=== PATIENT | male | born 1970 | race American Indian/Alaskan Native ===

== ENCOUNTER 2017-03-15 09:21 | Emergency (ER) | payer SELFPAY ==
[2017-03-15] MEDS ORDERED: NACL 0.9% 1000 ML 1,000 ML IV ONE (16:46)
[2017-03-15] MEDS ORDERED: TORADOL IV ONE (16:46)
[2017-03-15] MEDS ORDERED: REGLAN IV ONE (16:46)
[2017-03-15] MEDS ORDERED: BENADRYL IV ONE (16:46)
[2017-03-15] MEDS ORDERED: ZITHROMAX PO ONE (16:48)
[2017-03-15] MEDS ORDERED: ZITHROMAX 500 MG in NACL 0.9% 250ML 250 ML IV ONE (17:16)
--- NOTE | 2017-03-15 17:47 | Emergency Department Report ---
HPI - General Chief Complaint: Headache Time Seen by Provider: 03/15/17 16:23 - HPI HPI: The patient is a 46-year-old male who presents for evaluation of headache and nasal drainage. The patient reports 5 days of right frontal headache and mid face pain, constant and progressive since onset, 10/10 in severity for the past one day, pressure-like in quality, and associated with copious nasal drainage, clear and yellow. The patient denies fever, head injury, neck pain or neck stiffness, cough, dyspnea, chest pain, vision or hearing changes, smell or taste lost, paresthesias, facial drooping, slurred speech, or other focal neurological deficit. ED Past Medical Hx - Past Medical History Previous Medical History?: Yes Hx of Cancer: Yes (throat cancer) Hx Psychiatric Treatment: Yes (depression,alcoholic) Additional medical history: CHILDHOOD CANCER / alcohol abuse - Surgical History Past Surgical History?: Yes Additional Surgical History: TUMOR REMOVED FROM HEAD AND NECK, BIOPSY, ESOPHAGUS SURGERY - Social History Smoking Status: Former Smoker Substance Use Type: Alcohol, Prescribed - Medications Home Medications: Home Medications Medication Instructions Recorded Confirmed Last Taken Type Amoxicillin/K Clav Tab [Augmentin 1 tab PO Q12HR #20 tab 11/25/15 11/26/15 Unknown Rx 875 mg] HYDROcodone/APAP 7.5-325 [[place]] 15 ml PO Q4HR PRN #120 oz 11/25/15 11/26/15 Unknown Rx Amoxicillin [Amoxicillin 250 MG/5 250 mg PO BID #200 ml 03/15/17 Unknown Rx Ml] Ibuprofen Oral Liqd [Motrin] 600 mg PO Q6HR PRN #1 bottle 03/15/17 Unknown Rx Phenylephrine/Dm/Acetaminop/GG 20 ml PO Q4HR PRN #180 liquid 03/15/17 Unknown Rx [Mucinex Itpj-Vdx-Unevdsdrrg Lq] ED Review of Systems ROS: Stated complaint: SINUS PROBLEM,FEVER Other details as noted in HPI Constitutional: denies: fever ENT: denies: throat or neck pain Respiratory: denies: cough, shortness of breath Cardiovascular: denies: chest pain Endocrine: denies unexplained weight loss or gain Gastrointestinal: denies: abdominal pain, nausea Genitourinary: denies: dysuria Musculoskeletal: denies: leg swelling Skin: denies: rash Neurological: reports headache Hematological/Lymphatic: denies: easy bleeding or easy bruising Psych: denies sadness or hopelessness Physical Exam - Physical Exam Vital Signs: Vital Signs 03/15/17 03/15/17 03/15/17 11:01 16:22 16:26 Temperature 97.6 F 98.2 F Pulse Rate 82 99 H Respiratory 18 18 18 Rate Blood Pressure 97/66 Blood Pressure 101/72 [Right] O2 Sat by Pulse 100 97 100 Oximetry 03/15/17 17:08 Temperature Pulse Rate Respiratory 18 Rate Blood Pressure Blood Pressure [Right] O2 Sat by Pulse Oximetry Physical Exam: General: well-nourished, well-developed, no acute distress Head: Normocephalic, atraumatic, right frontal and maxillary tenderness to percussion present Eyes: normal sclera ENT: Mucous membranes are pale, bilateral nasal congestion is present, clear and white non-purulent mucous present to the right nare Neck: trachea midline, neck supple, No neck stiffness, no cervical adenopathy Respiratory: Breath sounds equal bilaterally, no wheezing, rales, or rhonchi Cardio: S1 and S2 present, no murmurs, rubs, gallops, capillary refill is delayed Abdomen: Normoactive bowel sounds, soft abdomen, no rigidity, no guarding or rebound tenderness Musc: No pitting edema Skin: No rash Neuro: alert oriented x4, normal cognition, speech normal, PERRL, EOM intact, no facial drooping, no uvula or tongue deviation on protrusion, no deficit with rotation of neck or shoulder shrug, no obvious gross motor deficit in the upper or lower extremities with flexion or extension at the shoulder, elbow, wrist, hip, knee, or ankle bilaterally, no obvious gross sensation deficit to crude touch or 2 pt discrimination, 2+ symmetric reflexes on DTR testing, no coordination deficit with lgrwpq-jl-vfek or luzw-tk-uzux testing, romberg negative, patient able to to ambulate without abnormal gait Psych: Normal affect ED Course Vital Signs 03/15/17 03/15/17 03/15/17 11:01 16:22 16:26 Temperature 97.6 F 98.2 F Pulse Rate 82 99 H Respiratory 18 18 18 Rate Blood Pressure 97/66 Blood Pressure 101/72 [Right] O2 Sat by Pulse 100 97 100 Oximetry 03/15/17 17:08 Temperature Pulse Rate Respiratory 18 Rate Blood Pressure Blood Pressure [Right] O2 Sat by Pulse Oximetry ED Medical Decision Making - Medical Decision Making The patient was seen and examined by myself. The patient is placed on a cardiac rehabilitation specialist and continuous pulse ox. On initial evaluation, the patient was found to be in no distress. As there are no neuro deficits or other findings on examination concerning for acute intracranial disease process, and as the patient states that symptoms are consistent with previous headaches, a CAT scan of the head will not be obtained at this time. IV access is established and the patient is given 1 L normal saline fluid bolus for treatment of dehydration, IV Reglan, Benadryl, and IV Toradol for headache and sinus pain. The patient be given a prescription for amoxicillin for treatment of his sinusitis. The patient was reevaluated and reported that their symptoms were markedly improved. The patient is stable for discharge with outpatient follow-up. The patient is given follow-up and return instructions. The patient expressed understanding and agreed with the plan. The patient is discharged in stable condition. Critical care attestation.: If time is entered above; I have spent that time in minutes in the direct care of this critically ill patient, excluding procedure time. ED Disposition Clinical Impression: Acute non intractable tension-type headache, Dehydration, mild Acute frontal sinusitis Qualifiers: Recurrence: non-recurrent Qualified Code(s): J01.10 - Acute frontal sinusitis, unspecified Acute maxillary sinusitis Qualifiers: Recurrence: non-recurrent Qualified Code(s): J01.00 - Acute maxillary sinusitis , unspecified Disposition: DC-01 TO HOME OR SELFCARE Is pt being admited?: No Does the pt Need Aspirin: No Condition: Stable Instructions: Acute Headache (ED), Sinusitis (ED) Prescriptions: Amoxicillin [Amoxicillin 250 MG/5 Ml] 250 mg PO BID #200 ml Ibuprofen Oral Liqd [Motrin] 600 mg PO Q6HR PRN #1 bottle PRN Reason: Pain Phenylephrine/Dm/Acetaminop/GG [Mucinex Wbqb-Pwi-Msvernyonb Lq] 20 ml PO Q4HR PRN #180 liquid PRN Reason: cough and sore throat Referrals: PRIMARY CARE,MD [Primary Care Provider] - 3-5 Days Time of Disposition: 18:10
[2017-03-15 19:59] VITALS: BP 105/70
== END 2017-03-15 20:01 | disposition home or self-care (01) ==
LOC: ED 09:21
DX: J01.10 Acute frontal sinusitis, unspecified (principal); J01.00 Acute maxillary sinusitis, unspecified; G44.209 Tension-type headache, unspecified, not intractable; E86.0 Dehydration; C14.0 Malignant neoplasm of pharynx, unspecified; F32.9 Major depressive disorder, single episode, unspecified; Z87.891 Personal history of nicotine dependence
CPT/HCPCS: 96361; 96365; 96375; 99283; J0456; J1200; J1885; J2765; J7030; J7050

== ENCOUNTER 2017-05-11 20:04 | Emergency (ER) | payer OTHER ==
[2017-05-11 20:26] VITALS: BP 125/81
[2017-05-11 20:54] LABS: Basophils % (Auto) 0.9 % (0.0-1.8); Eosinophils % (Auto) 9.1 % (0.0-4.3); Hematocrit 30.7 % (35.5-45.6); Hemoglobin 10.2 gm/dl (11.8-15.2); Mean Corpuscular HGB Conc 33 % (32-34); Mean Corpuscular Hemoglobin 28 pg (28-32); Mean Corpuscular Volume 84 fl (84-94); Platelet Count 288 K/mm3 (140-440); Red Blood Count 3.64 M/mm3 (3.65-5.03); White Blood Count 5.3 K/mm3 (4.5-11.0)
[2017-05-11 21:01] LABS: Alanine Aminotransferase 15 units/L (7-56); Albumin 4.4 g/dL (3.9-5); Albumin/Globulin Ratio 1.6 %; Alkaline Phosphatase 78 units/L (35-129); BUN/Creatinine Ratio 14; Bilirubin,Total < 0.20 mg/dL (0.1-1.2); Blood Urea Nitrogen 13 mg/dL (9-20); Calcium 9.2 mg/dL (8.4-10.2); Carbon Dioxide 27 mmol/L (22-30); Glucose 81 mg/dL (75-100); Lipase 32 units/L (13-60); Total Protein 7.2 g/dL (6.3-8.2)
[2017-05-11 21:02] LABS: Anion Gap 18 mmol/L; Chloride 89.6 mmol/L (98-107); Potassium 4.1 mmol/L (3.6-5.0); Sodium 130 mmol/L (137-145)
== END 2017-05-12 00:37 | disposition left against medical advice (07) ==
LOC: ED 20:04
DX: R10.9 Unspecified abdominal pain (principal); Z53.21 Procedure and treatment not carried out due to patient leaving prior to being seen by health care provider
CPT/HCPCS: 36415; 80053; 83690; 85025

== ENCOUNTER 2017-06-10 13:05 | Emergency (ER) | payer MEDICAID ==
[2017-06-10] MEDS ORDERED: HALDOL IM PRN (13:56)
[2017-06-10] MEDS ORDERED: ATIVAN IM PRN (13:56)
--- NOTE | 2017-06-10 13:57 | Emergency Department Report ---
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 He reports being off of his psychiatric medication for 2 weeks. Symptoms are constant. They do not radiate anywhere. It did not have exacerbating or relieving factors. Denies headache, shortness of breath, abdominal pain, homicidality, overdose, urinary symptoms. -: Gradual, week(s) Consistency: constant Improves with: none Worsens with: none Associated Symptoms: denies: confusion, chest pain, cough, diaphoresis, fever/ chills, headaches, loss of appetite, malaise, nausea/vomiting, seizure, shortness of breath, syncope, weakness - Related Data Previous Rx's Medication Instructions Recorded Last Taken Type Amoxicillin/K Clav Tab [Augmentin 1 tab PO Q12HR #20 tab 11/25/15 Unknown Rx 875 mg] HYDROcodone/APAP 7.5-325 [[place]] 15 ml PO Q4HR PRN #120 oz 11/25/15 Unknown Rx Amoxicillin [Amoxicillin 250 MG/5 250 mg PO BID #200 ml 03/15/17 Unknown Rx Ml] Ibuprofen Oral Liqd [Motrin] 600 mg PO Q6HR PRN #1 bottle 03/15/17 Unknown Rx Phenylephrine/Dm/Acetaminop/GG 20 ml PO Q4HR PRN #180 liquid 03/15/17 Unknown Rx [Mucinex Gtfb-Kto-Tzgesgkgnb Lq] Allergies Allergy/AdvReac Type Severity Reaction Status Date / Time No Known Allergies Allergy Verified 03/15/17 19:58 ED Review of Systems ROS: Stated complaint: MH Other details as noted in HPI Constitutional: denies: fever Eyes: denies: vision change ENT: denies: epistaxis Respiratory: denies: cough Cardiovascular: denies: chest pain Gastrointestinal: denies: abdominal pain Genitourinary: denies: dysuria Musculoskeletal: denies: back pain Neurological: weakness Psychiatric: anxiety, depression, suicidal thoughts. denies: homicidal thoughts ED Past Medical Hx - Past Medical History Hx Psychiatric Treatment: Yes (depression,alcoholic) Additional medical history: CHILDHOOD CANCER in neck / alcohol abuse/GT placed in August 2016 due to the cancer - Surgical History Additional Surgical History: TUMOR REMOVED FROM HEAD AND NECK, BIOPSY, ESOPHAGUS SURGERY, decreased hearing - Social History Smoking Status: Current Every Day Smoker Substance Use Type: None - Medications Home Medications: Home Medications Medication Instructions Recorded Confirmed Last Taken Type Amoxicillin/K Clav Tab [Augmentin 1 tab PO Q12HR #20 tab 11/25/15 03/15/17 Unknown Rx 875 mg] HYDROcodone/APAP 7.5-325 [[place]] 15 ml PO Q4HR PRN #120 oz 11/25/15 03/15/17 Unknown Rx Amoxicillin [Amoxicillin 250 MG/5 250 mg PO BID #200 ml 03/15/17 Unknown Rx Ml] Ibuprofen Oral Liqd [Motrin] 600 mg PO Q6HR PRN #1 bottle 03/15/17 Unknown Rx Phenylephrine/Dm/Acetaminop/GG 20 ml PO Q4HR PRN #180 liquid 03/15/17 Unknown Rx [Mucinex Tnnd-Zfj-Wwjwqzyjzm Lq] ED Physical Exam - General Limitations: No Limitations General appearance: alert, anxious, in distress - Head Head exam: Present: atraumatic, normocephalic - Eye Eye exam: Present: normal appearance, PERRL, EOMI, other (visual acuity intact to finger counting, color perception, reading at a close distance). Absent: nystagmus - ENT ENT exam: Present: normal exam, normal orophraynx, mucous membranes moist, normal external ear exam - Neck Neck exam: Present: full ROM. Absent: tenderness, meningismus - Respiratory Respiratory exam: Present: normal lung sounds bilaterally. Absent: respiratory distress, chest wall tenderness - Cardiovascular Cardiovascular Exam: Present: regular rate, normal rhythm, normal heart sounds. Absent: systolic murmur, diastolic murmur, rubs, gallop - GI/Abdominal GI/Abdominal exam: Present: soft, normal bowel sounds. Absent: distended, tenderness, guarding, rebound, rigid, pulsatile mass - Rectal Rectal exam: Present: deferred - Extremities Exam Extremities exam: Present: normal inspection, full ROM. Absent: pedal edema, joint swelling, calf tenderness - Back Exam Back exam: Present: normal inspection, full ROM. Absent: tenderness, CVA tenderness (R), paraspinal tenderness, vertebral tenderness - Neurological Exam Neurological exam: Present: alert, oriented X3, CN II-XII intact, normal gait, other (Extraocular movements intact. Tongue midline. No facial droop. Facial sensation intact to light touch in the V1, V2, V3 distribution bilaterally. 5 and 5 strength in 4 extremities.. Sensation is intact to light touch in 4 extremities.). Absent: motor sensory deficit - Psychiatric Psychiatric exam: Present: depressed, agitated, anxious, suicidal ideation. Absent: homicidal ideation - Skin Skin exam: Present: warm, dry, intact, normal color. Absent: rash ED Course Vital Signs 06/10/17 13:28 Temperature 98.2 F Pulse Rate 102 H Respiratory 18 Rate Blood Pressure 110/80 O2 Sat by Pulse 98 Oximetry - Reevaluation(s) Reevaluation #1: 06/10/17 14:38 Differential diagnosis, including without limited to: Depression, medical clearance for psychiatric placement Assessment and plan: 46-year-old male with depression, suicidality, generalized sense of hopelessness. He is afebrile with reassuring vital signs, clinically sober, walks with a steady gait, requires a 1013 at this time. nih score of 0, GCS of 15. Laboratory studies pending, we will discuss with psychiatry once his laboratory studies have resulted. Reevaluation #2: 06/10/17 15:16 Laboratory studies reviewed and are unremarkable. He does not appear to be any immediate medical contraindication to psychiatric admission, evaluation and consultation at this time. Crisis team notified. ED Medical Decision Making - Lab Data Result diagrams: 06/10/17 14:31 06/10/17 14:31 Vital Signs 06/10/17 13:28 Temperature 98.2 F Pulse Rate 102 H Respiratory 18 Rate Blood Pressure 110/80 O2 Sat by Pulse 98 Oximetry Lab Results 06/10/17 Range/Units 13:07 Urine Bilirubin Neg (Negative) Urine RBC (Auto) 1.0 (0.0-6.0) /HPF - Radiology Data Vital Signs 06/10/17 13:28 Temperature 98.2 F Pulse Rate 102 H Respiratory 18 Rate Blood Pressure 110/80 O2 Sat by Pulse 98 Oximetry Lab Results 06/10/17 06/10/1717 Range/Units 13:07 13:07 14:31 WBC 4.2 L (4.5-11.0) K/mm3 RBC 4.33 (3.65-5.03) M/mm3 Hgb 12.1 (11.8-15.2) gm/dl Hct 36.5 (35.5-45.6) % MCV 84 (84-94) fl MCH 28 (28-32) pg MCHC 33 (32-34) % RDW 14.0 (13.2-15.2) % Plt Count 316 (140-440) K/mm3 Lymph % (Auto) Not Reportable Dane % (Auto) Not Reportable Eos % (Auto) Not Reportable Baso % (Auto) Not Reportable Lymph # Not Reportable Dane # Not Reportable Eos # Not Reportable Baso # Not Reportable Seg Neutrophils # Not Reportable Sodium (137-145) mmol/L Potassium (3.6-5.0) mmol/L Chloride (98-107) mmol/L Carbon Dioxide (22-30) mmol/L Anion Gap mmol/L BUN (9-20) mg/dL Creatinine (0.8-1.5) mg/dL Estimated GFR ml/min BUN/Creatinine Ratio % Glucose (75-100) mg/dL Calcium (8.4-10.2) mg/dL Total Bilirubin (0.1-1.2) mg/dL AST (5-40) units/L ALT (7-56) units/L Alkaline Phosphatase (35-129) units/L Total Creatine Kinase (55-170) units/L Total Protein (6.3-8.2) g/dL Albumin (3.9-5) g/dL Albumin/Globulin Ratio % Urine Color Yellow (Yellow) Urine Turbidity Clear (Clear) Urine pH 6.0 (5.0-7.0) Ur Specific [place] 1.021 (1.003-1.030) Urine Protein <15 mg/dl (Negative) mg/dL Urine Glucose (UA) Neg (Negative) mg/dL Urine Ketones Neg (Negative) mg/dL Urine Blood Neg (Negative) Urine Nitrite Neg (Negative) Urine Bilirubin Neg (Negative) Urine Urobilinogen < 2.0 (<2.0) mg/dL Ur Leukocyte Esterase Neg (Negative) Urine WBC (Auto) 1.0 (0.0-6.0) /HPF Urine RBC (Auto) 1.0 (0.0-6.0) /HPF Hyaline Casts 1 /LPF Urine Mucus Few /HPF Salicylates (2.8-20.0) mg/dL Urine Opiates Screen Presumptive negative Urine Methadone Screen Presumptive negative Acetaminophen (10.0-30.0) ug/mL Ur Barbiturates Screen Presumptive negative Ur Phencyclidine Scrn Presumptive negative Ur Amphetamines Screen Presumptive negative U Benzodiazepines Scrn Presumptive negative Urine Cocaine Screen Presumptive negative U Marijuana (THC) Screen Presumptive positive Drugs of Abuse Note Disclamer Plasma/Serum Alcohol (0-0.07) gm% 06/10/17 06/10/17 06/10/17 Range/Units 14:31 14:31 14:31 WBC (4.5-11.0) K/mm3 RBC (3.65-5.03) M/mm3 Hgb (11.8-15.2) gm/dl Hct (35.5-45.6) % MCV (84-94) fl MCH (28-32) pg MCHC (32-34) % RDW (13.2-15.2) % Plt Count (140-440) K/mm3 Lymph % (Auto) Dane % (Auto) Eos % (Auto) Baso % (Auto) Lymph # Dane # Eos # Baso # Seg Neutrophils # Sodium 133 L (137-145) mmol/L Potassium 4.5 (3.6-5.0) mmol/L Chloride 94.4 L (98-107) mmol/L Carbon Dioxide 26 (22-30) mmol/L Anion Gap 17 mmol/L BUN 17 (9-20) mg/dL Creatinine 0.9 (0.8-1.5) mg/dL Estimated GFR > 60 ml/min BUN/Creatinine Ratio 19 % Glucose 94 (75-100) mg/dL Calcium 9.7 (8.4-10.2) mg/dL Total Bilirubin 0.40 (0.1-1.2) mg/dL AST 25 (5-40) units/L ALT 15 (7-56) units/L Alkaline Phosphatase 87 (35-129) units/L Total Creatine Kinase 297 H (55-170) units/L Total Protein 8.5 H (6.3-8.2) g/dL Albumin 4.9 (3.9-5) g/dL Albumin/Globulin Ratio 1.4 % Urine Color (Yellow) Urine Turbidity (Clear) Urine pH (5.0-7.0) Ur Specific [place] (1.003-1.030) Urine Protein (Negative) mg/dL Urine Glucose (UA) (Negative) mg/dL Urine Ketones (Negative) mg/dL Urine Blood (Negative) Urine Nitrite (Negative) Urine Bilirubin (Negative) Urine Urobilinogen (<2.0) mg/dL Ur Leukocyte Esterase (Negative) Urine WBC (Auto) (0.0-6.0) /HPF Urine RBC (Auto) (0.0-6.0) /HPF Hyaline Casts /LPF Urine Mucus /HPF Salicylates (2.8-20.0) mg/dL Urine Opiates Screen Urine Methadone Screen Acetaminophen < 15.0 (10.0-30.0) ug/mL Ur Barbiturates Screen Ur Phencyclidine Scrn Ur Amphetamines Screen U Benzodiazepines Scrn Urine Cocaine Screen U Marijuana (THC) Screen Drugs of Abuse Note Plasma/Serum Alcohol < 0.01 (0-0.07) gm% // Range/Units 14:31 WBC (4.5-11.0) K/mm3 RBC (3.65-5.03) M/mm3 Hgb (11.8-15.2) gm/dl Hct (35.5-45.6) % MCV (84-94) fl MCH (28-32) pg MCHC (32-34) % RDW (13.2-15.2) % Plt Count (140-440) K/mm3 Lymph % (Auto) Dane % (Auto) Eos % (Auto) Baso % (Auto) Lymph # Dane # Eos # Baso # Seg Neutrophils # Sodium (137-145) mmol/L Potassium (3.6-5.0) mmol/L Chloride (98-107) mmol/L Carbon Dioxide (22-30) mmol/L Anion Gap mmol/L BUN (9-20) mg/dL Creatinine (0.8-1.5) mg/dL Estimated GFR ml/min BUN/Creatinine Ratio % Glucose (75-100) mg/dL Calcium (8.4-10.2) mg/dL Total Bilirubin (0.1-1.2) mg/dL AST (5-40) units/L ALT (7-56) units/L Alkaline Phosphatase (35-129) units/L Total Creatine Kinase (55-170) units/L Total Protein (6.3-8.2) g/dL Albumin (3.9-5) g/dL Albumin/Globulin Ratio % Urine Color (Yellow) Urine Turbidity (Clear) Urine pH (5.0-7.0) Ur Specific [place] (1.003-1.030) Urine Protein (Negative) mg/dL Urine Glucose (UA) (Negative) mg/dL Urine Ketones (Negative) mg/dL Urine Blood (Negative) Urine Nitrite (Negative) Urine Bilirubin (Negative) Urine Urobilinogen (<2.0) mg/dL Ur Leukocyte Esterase (Negative) Urine WBC (Auto) (0.0-6.0) /HPF Urine RBC (Auto) (0.0-6.0) /HPF Hyaline Casts /LPF Urine Mucus /HPF Salicylates < 0.3 L (2.8-20.0) mg/dL Urine Opiates Screen Urine Methadone Screen Acetaminophen (10.0-30.0) ug/mL Ur Barbiturates Screen Ur Phencyclidine Scrn Ur Amphetamines Screen U Benzodiazepines Scrn Urine Cocaine Screen U Marijuana (THC) Screen Drugs of Abuse Note Plasma/Serum Alcohol (0-0.07) gm% Critical care attestation.: If time is entered above; I have spent that time in minutes in the direct care of this critically ill patient, excluding procedure time. ED Disposition Clinical Impression: Medical clearance for psychiatric admission Disposition: DC/TX-65 PSY HOSP/PSY UNIT Is pt being admited?: No Does the pt Need Aspirin: No Condition: Good Referrals: BRAYAN KELLEY MD [Primary Care Provider] - 3-5 Days
[2017-06-10 14:15] LABS: Urine Drugs of Abuse Note Disclamer
[2017-06-10 14:28] LABS: Bilirubin,Urine NEG (Negative); Blood,Urine NEG (Negative); Ketones,Urine NEG (Negative); Leukocyte Esterase,Urine NEG (Negative); Mucus,Urine FEW /HPF; Nitrite,Urine NEG (Negative); Protein,Urine <15 mg/dL mg/dL (Negative); Urobilinogen,Urine < 2.0 mg/dL (<2.0)
[2017-06-10 14:46] LABS: Hematocrit 36.5 % (35.5-45.6); Hemoglobin 12.1 gm/dl (11.8-15.2); Mean Corpuscular HGB Conc 33 % (32-34); Mean Corpuscular Hemoglobin 28 pg (28-32); Mean Corpuscular Volume 84 fl (84-94); Platelet Count 316 K/mm3 (140-440); Red Blood Count 4.33 M/mm3 (3.65-5.03); White Blood Count 4.2 K/mm3 (4.5-11.0)
[2017-06-10 15:04] LABS: Alanine Aminotransferase 15 units/L (7-56); Albumin 4.9 g/dL (3.9-5); Albumin/Globulin Ratio 1.4 %; Alkaline Phosphatase 87 units/L (35-129); Anion Gap 17 mmol/L; BUN/Creatinine Ratio 19; Blood Urea Nitrogen 17 mg/dL (9-20); Calcium 9.7 mg/dL (8.4-10.2); Carbon Dioxide 26 mmol/L (22-30); Chloride 94.4 mmol/L (98-107); Creatine Kinase 297 units/L (55-170); Glucose 94 mg/dL (75-100); Potassium 4.5 mmol/L (3.6-5.0); Sodium 133 mmol/L (137-145); Total Protein 8.5 g/dL (6.3-8.2)
[2017-06-10 15:50] LABS: Basophils % (Manual) 0 % (0.0-1.8); Blastocytes % (Manual) 0 %
[2017-06-10 15:52] LABS: Anisocytosis 2+; Diff Status Complete; Elliptocytes Rare; Target Cells Few
[2017-06-10] MEDS: MOTRIN PO PRN (22:00)
[2017-06-11] MEDS: MOTRIN PO PRN (13:31)
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
[2017-06-12] MEDS: MOTRIN PO PRN ×3 (03:33→20:40)
--- NOTE | 2017-06-12 13:14 | Progress Note ---
Subjective - Reason for Consult Consult date: 06/12/17 Reason for consult: Psychiatry Follow-up - Chief Complaint Chief complaint: "I will be homeless in 30 days" 46 year old male presents to [facility], [place]- we've been asked to see him for mental health psych eval. Today patient is calm and cooperative during the assessment. He stated that he is stressing over being homeless in the next 30 days. He stated that he hear voices constantly and they were loud last night. He rate his depression 6/10, with 10 being the worse. He stated that he was a patient at [facility] in the past. He denies SI/HI's. Patient has a PEG Tube. Mental Status Exam - Vital signs Last Vital Signs Temp 97.9 F 06/11/17 23:08 Pulse 88 06/11/17 23:08 Resp 18 06/12/17 03:33 BP 115/87 06/11/17 19:31 Pulse Ox 98 06/11/17 23:01 - Exam Narrative exam: MSE: Appearance: calm, cooperative Behavior: regular eye contact Speech: regular rate and tone Mood: "okay" Affect: congruent to mood Thought Process: circumstantial Thought Content: denies SI/HI's and AVH's Motor Activity: sitting up in bed Cognition: A/O x3 Insight: variable Judgment: variable Assessment and Plan Impression: MDD with psychosis. Substance Use DO (marijuana). Today patient is calm and cooperative during the assessment. DDx: Schizoaffective DO, R/O Bipolar Recommendation/Plan: Continue 1013 with placement to inpatient psy services. Start Seroquel 200 mg PO HS for mood/psychosis and Zoloft 50 mg PO for depression. Discussed possible metabolic side effects of Seroquel with patient. Discussed possible suicidality/medication induced lorenzo with patient reference Zoloft. Patient has a PEG Tube, his assigned RN was informed. Per conversation with his assigned RN, the patient is swallowing his medications and eating his food without difficulty.
[2017-06-12] MEDS ORDERED: ZOFRAN ODT ONE (15:05)
[2017-06-12] MEDS ORDERED: ZOFRAN ODT PO ONE (15:05)
[2017-06-12] MEDS ORDERED: PEPCID PO ONE (15:05)
[2017-06-12] MEDS ORDERED: PEPCID ONE (15:05)
[2017-06-12] MEDS: ZOLOFT PO SCH (16:45)
--- NOTE | 2017-06-13 11:07 | Progress Note ---
Subjective - Reason for Consult Consult date: 06/13/17 Reason for consult: Psychiatry Follow-up - Chief Complaint Chief complaint: "How are you" 46 year old male presents to [facility]- we've been asked to see him for mental health psych eval. Today patient is calm and cooperative during the assessment. He stated that he was not suicidal on admission. He stated that he was worried about being homeless soon. He do admit to being depressed on admission and hearing voices, which he stated he can handle. Today, he stated that the voices has "ceased" and he look forward to being discharged. He stated that he would like some assistance with placement. He denies SI/HI's and AVH's. Patient has a PEG Tube. Patient denies side effects of his medications. Mental Status Exam - Vital signs Last Vital Signs Temp 98 F 06/12/17 19:40 Pulse 77 06/13/17 01:00 Resp 18 06/13/17 01:00 BP 101/66 06/13/17 01:00 Pulse Ox 99 06/13/17 01:00 - Exam Narrative exam: MSE: Appearance: calm, cooperative Behavior: regular eye contact Speech: regular rate and tone Mood: "okay" Affect: congruent to mood Thought Process: circumstantial Thought Content: denies SI/HI's and AVH's Motor Activity: sitting up in bed Cognition: A/O x3 Insight: fair Judgment: fair Assessment and Plan Impression: MDD with psychosis. Substance Use DO (marijuana). Today patient is calm and cooperative during the assessment. Patient is no threat to self. DDx: Schizoaffective DO, R/O Bipolar Recommendation/Plan: Rescind 1013. Continue Seroquel 200 mg PO HS for mood/ psychosis and Zoloft 50 mg PO for depression. Discussed possible metabolic side effects of Seroquel with patient. Discussed possible suicidality/medication induced lorenzo with patient reference Zoloft. Patient can follow up with [facility] for outpatient psy/rehab services. Sign Painter Helper involvement, patient will need placement.
[2017-06-13] MEDS: ZOLOFT PO SCH (12:38)
[2017-06-13] MEDS: MOTRIN PO PRN ×2 (12:38→22:32)
[2017-06-13 17:46] VITALS: BP 126/78
--- NOTE | 2017-06-13 22:51 | Event Note ---
Patient seen and evaluated by myself and psychiatry. He is not suicidal. They have recommended discontinuing the patient's involuntary hold. They have recommended Seroquel 200 mg daily at bedtime, and Zoloft 500 mg daily for depression. Patient will be given a 10 day supply/prescription. He will be instructed to follow up with outpatient psychiatry and rehabilitation services. Patient will be discharged at this time. The patient is alert and oriented 3, clinically sober, walks with a steady gait , and has no medical complaints at this time, and is medically suitable for discharge at this time. Vital Signs 06/10/17 06/10/17 06/11/17 13:28 15:33 01:33 Temperature 98.2 F 98.6 F Pulse Rate 102 H 87 Respiratory 18 18 Rate Blood Pressure 110/80 Blood Pressure 104/75 [Left] O2 Sat by Pulse 98 Oximetry 06/11/17 06/11/17 06/11/17 08:25 08:59 13:31 Temperature 98.6 F Pulse Rate 99 H Respiratory 18 18 20 Rate Blood Pressure Blood Pressure 98/68 [Left] O2 Sat by Pulse 98 98 Oximetry 06/11/17 06/11/17 06/11/17 19:31 23:01 23:08 Temperature 97.9 F Pulse Rate 89 88 Respiratory 18 18 Rate Blood Pressure 115/87 Blood Pressure [Left] O2 Sat by Pulse 100 98 Oximetry 06/12/17 06/12/17 06/12/17 03:33 09:07 09:13 Temperature 97.7 F Pulse Rate 84 Respiratory 18 19 20 Rate Blood Pressure Blood Pressure 114/81 [Left] O2 Sat by Pulse 100 100 Oximetry 06/12/17 06/12/17 06/13/17 15:45 19:40 01:00 Temperature 98 F Pulse Rate 77 77 Respiratory 22 18 18 Rate Blood Pressure Blood Pressure 103/74 101/66 [Left] O2 Sat by Pulse 98 99 Oximetry 06/13/17 09:36 Temperature 98.6 F Pulse Rate 103 H Respiratory 20 Rate Blood Pressure Blood Pressure 126/78 [Left] O2 Sat by Pulse Oximetry Lab Results 06/10/17 06/10/17 06/10/17 Range/Units 13:07 13:07 14:31 WBC 4.2 L (4.5-11.0) K/mm3 RBC 4.33 (3.65-5.03) M/mm3 Hgb 12.1 (11.8-15.2) gm/dl Hct 36.5 (35.5-45.6) % MCV 84 (84-94) fl MCH 28 (28-32) pg MCHC 33 (32-34) % RDW 14.0 (13.2-15.2) % Plt Count 316 (140-440) K/mm3 Lymph % (Auto) Not Reportable [place] % (Auto) Not Reportable Eos % (Auto) Not Reportable Baso % (Auto) Not Reportable Lymph # Not Reportable [place] # Not Reportable Eos # Not Reportable Baso # Not Reportable Add Manual Diff Complete Total Counted 100 Seg Neuts % (Manual) 48.0 (40.0-70.0) % Band Neutrophils % 0 % Lymphocytes % (Manual) 36.0 H (13.4-35.0) % Reactive Lymphs % (Man) 0 % Monocytes % (Manual) 5.0 (0.0-7.3) % Eosinophils % (Manual) 11.0 H (0.0-4.3) % Basophils % (Manual) 0 (0.0-1.8) % Metamyelocytes % 0 % Myelocytes % 0 % Promyelocytes % 0 % Blast Cells % 0 % Nucleated RBC % Not Reportable Seg Neutrophils # Not Reportable Seg Neutrophils # Man 2.0 (1.8-7.7) K/mm3 Band Neutrophils # 0.0 K/mm3 Lymphocytes # (Manual) 1.5 (1.2-5.4) K/mm3 Abs React Lymphs (Man) 0.0 K/mm3 Monocytes # (Manual) 0.2 (0.0-0.8) K/mm3 Eosinophils # (Manual) 0.5 H (0.0-0.4) K/mm3 Basophils # (Manual) 0.0 (0.0-0.1) K/mm3 Metamyelocytes # 0.0 K/mm3 Myelocytes # 0.0 K/mm3 Promyelocytes # 0.0 K/mm3 Blast Cells # 0.0 K/mm3 WBC Morphology Not Reportable Hypersegmented Neuts Not Reportable Hyposegmented Neuts Not Reportable Hypogranular Neuts Not Reportable Smudge Cells Not Reportable Toxic Granulation Not Reportable Toxic Vacuolation Not Reportable Dohle Bodies Not Reportable Pelger-Huet Anomaly Not Reportable Brandin Rods Not Reportable Platelet Estimate Appears normal Clumped Platelets Not Reportable Plt Clumps, EDTA Not Reportable Large Platelets Not Reportable Giant Platelets Not Reportable Platelet Satelliting Not Reportable Plt Morphology Comment Not Reportable RBC Morphology Not Reportable Dimorphic RBCs Not Reportable Polychromasia Not Reportable Hypochromasia Not Reportable Poikilocytosis Not Reportable Anisocytosis 2+ Microcytosis Not Reportable Macrocytosis Not Reportable Spherocytes Not Reportable Pappenheimer Bodies Not Reportable Sickle Cells Not Reportable Target Cells Few Tear Drop Cells Not Reportable Ovalocytes Not Reportable Helmet Cells Not Reportable [place] Bodies Not Reportable [place] Rings Not Reportable Jerome Cells Not Reportable Bite Cells Not Reportable Crenated Cell Not Reportable Elliptocytes Rare Acanthocytes (Spur) Not Reportable Rouleaux Not Reportable Hemoglobin C Crystals Not Reportable Schistocytes Not Reportable Malaria parasites Not Reportable Tony Bodies Not Reportable Hem Pathologist Commnt No Sodium (137-145) mmol/L Potassium (3.6-5.0) mmol/L Chloride (98-107) mmol/L Carbon Dioxide (22-30) mmol/L Anion Gap mmol/L BUN (9-20) mg/dL Creatinine (0.8-1.5) mg/dL Estimated GFR ml/min BUN/Creatinine Ratio % Glucose (75-100) mg/dL Calcium (8.4-10.2) mg/dL Total Bilirubin (0.1-1.2) mg/dL AST (5-40) units/L ALT (7-56) units/L Alkaline Phosphatase (35-129) units/L Total Creatine Kinase (55-170) units/L Total Protein (6.3-8.2) g/dL Albumin (3.9-5) g/dL Albumin/Globulin Ratio % Urine Color Yellow (Yellow) Urine Turbidity Clear (Clear) Urine pH 6.0 (5.0-7.0) Ur Specific [place] 1.021 (1.003-1.030) Urine Protein <15 mg/dl (Negative) mg/dL Urine Glucose (UA) Neg (Negative) mg/dL Urine Ketones Neg (Negative) mg/dL Urine Blood Neg (Negative) Urine Nitrite Neg (Negative) Urine Bilirubin Neg (Negative) Urine Urobilinogen < 2.0 (<2.0) mg/dL Ur Leukocyte Esterase Neg (Negative) Urine WBC (Auto) 1.0 (0.0-6.0) /HPF Urine RBC (Auto) 1.0 (0.0-6.0) /HPF Hyaline Casts 1 /LPF Urine Mucus Few /HPF Salicylates (2.8-20.0) mg/dL Urine Opiates Screen Presumptive negative Urine Methadone Screen Presumptive negative Acetaminophen (10.0-30.0) ug/mL Ur Barbiturates Screen Presumptive negative Ur Phencyclidine Scrn Presumptive negative Ur Amphetamines Screen Presumptive negative U Benzodiazepines Scrn Presumptive negative Urine Cocaine Screen Presumptive negative U Marijuana (THC) Screen Presumptive positive Drugs of Abuse Note Disclamer Plasma/Serum Alcohol (0-0.07) gm% 06/10/17 06/10/17 06/10/17 Range/Units 14:31 14:31 14:31 WBC (4.5-11.0) K/mm3 RBC (3.65-5.03) M/mm3 Hgb (11.8-15.2) gm/dl Hct (35.5-45.6) % MCV (84-94) fl MCH (28-32) pg MCHC (32-34) % RDW (13.2-15.2) % Plt Count (140-440) K/mm3 Lymph % (Auto) [place]arton % (Auto) Eos % (Auto) Baso % (Auto) Lymph # Wharton # Eos # Baso # Add Manual Diff Total Counted Seg Neuts % (Manual) (40.0-70.0) % Band Neutrophils % % Lymphocytes % (Manual) (13.4-35.0) % Reactive Lymphs % (Man) % Monocytes % (Manual) (0.0-7.3) % Eosinophils % (Manual) (0.0-4.3) % Basophils % (Manual) (0.0-1.8) % Metamyelocytes % % Myelocytes % % Promyelocytes % % Blast Cells % % Nucleated RBC % Seg Neutrophils # Seg Neutrophils # Man (1.8-7.7) K/mm3 Band Neutrophils # K/mm3 Lymphocytes # (Manual) (1.2-5.4) K/mm3 Abs React Lymphs (Man) K/mm3 Monocytes # (Manual) (0.0-0.8) K/mm3 Eosinophils # (Manual) (0.0-0.4) K/mm3 Basophils # (Manual) (0.0-0.1) K/mm3 Metamyelocytes # K/mm3 Myelocytes # K/mm3 Promyelocytes # K/mm3 Blast Cells # K/mm3 WBC Morphology Hypersegmented Neuts Hyposegmented Neuts Hypogranular Neuts Smudge Cells Toxic Granulation Toxic Vacuolation Dohle Bodies Pelger-Huet Anomaly Brandin Rods Platelet Estimate Clumped Platelets Plt Clumps, EDTA Large Platelets Giant Platelets Platelet Satelliting Plt Morphology Comment RBC Morphology Dimorphic RBCs Polychromasia Hypochromasia Poikilocytosis Anisocytosis Microcytosis Macrocytosis Spherocytes Pappenheimer Bodies Sickle Cells Target Cells Tear Drop Cells Ovalocytes Helmet Cells [place] Bodies Valatie Rings [place] Cells Bite Cells Crenated Cell Elliptocytes Acanthocytes (Spur) Rouleaux Hemoglobin C Crystals Schistocytes Malaria parasites Tony Bodies Hem Pathologist Commnt Sodium 133 L (137-145) mmol/L Potassium 4.5 (3.6-5.0) mmol/L Chloride 94.4 L (98-107) mmol/L Carbon Dioxide 26 (22-30) mmol/L Anion Gap 17 mmol/L BUN 17 (9-20) mg/dL Creatinine 0.9 (0.8-1.5) mg/dL Estimated GFR > 60 ml/min BUN/Creatinine Ratio 19 % Glucose 94 (75-100) mg/dL Calcium 9.7 (8.4-10.2) mg/dL Total Bilirubin 0.40 (0.1-1.2) mg/dL AST 25 (5-40) units/L ALT 15 (7-56) units/L Alkaline Phosphatase 87 (35-129) units/L Total Creatine Kinase 297 H (55-170) units/L Total Protein 8.5 H (6.3-8.2) g/dL Albumin 4.9 (3.9-5) g/dL Albumin/Globulin Ratio 1.4 % Urine Color (Yellow) Urine Turbidity (Clear) Urine pH (5.0-7.0) Ur Specific [place] (1.003-1.030) Urine Protein (Negative) mg/dL Urine Glucose (UA) (Negative) mg/dL Urine Ketones (Negative) mg/dL Urine Blood (Negative) Urine Nitrite (Negative) Urine Bilirubin (Negative) Urine Urobilinogen (<2.0) mg/dL Ur Leukocyte Esterase (Negative) Urine WBC (Auto) (0.0-6.0) /HPF Urine RBC (Auto) (0.0-6.0) /HPF Hyaline Casts /LPF Urine Mucus /HPF Salicylates (2.8-20.0) mg/dL Urine Opiates Screen Urine Methadone Screen Acetaminophen < 15.0 (10.0-30.0) ug/mL Ur Barbiturates Screen Ur Phencyclidine Scrn Ur Amphetamines Screen U Benzodiazepines Scrn Urine Cocaine Screen U Marijuana (THC) Screen Drugs of Abuse Note Plasma/Serum Alcohol < 0.01 (0-0.07) gm% //17 Range/Units 14:31 WBC (4.5-11.0) K/mm3 RBC (3.65-5.03) M/mm3 Hgb (11.8-15.2) gm/dl Hct (35.5-45.6) % MCV (84-94) fl MCH (28-32) pg MCHC (32-34) % RDW (13.2-15.2) % Plt Count (140-440) K/mm3 Lymph % (Auto) [place] % (Auto) Eos % (Auto) Baso % (Auto) Lymph # [place] # Eos # Baso # Add Manual Diff Total Counted Seg Neuts % (Manual) (40.0-70.0) % Band Neutrophils % % Lymphocytes % (Manual) (13.4-35.0) % Reactive Lymphs % (Man) % Monocytes % (Manual) (0.0-7.3) % Eosinophils % (Manual) (0.0-4.3) % Basophils % (Manual) (0.0-1.8) % Metamyelocytes % % Myelocytes % % Promyelocytes % % Blast Cells % % Nucleated RBC % Seg Neutrophils # Seg Neutrophils # Man (1.8-7.7) K/mm3 Band Neutrophils # K/mm3 Lymphocytes # (Manual) (1.2-5.4) K/mm3 Abs React Lymphs (Man) K/mm3 Monocytes # (Manual) (0.0-0.8) K/mm3 Eosinophils # (Manual) (0.0-0.4) K/mm3 Basophils # (Manual) (0.0-0.1) K/mm3 Metamyelocytes # K/mm3 Myelocytes # K/mm3 Promyelocytes # K/mm3 Blast Cells # K/mm3 WBC Morphology Hypersegmented Neuts Hyposegmented Neuts Hypogranular Neuts Smudge Cells Toxic Granulation Toxic Vacuolation Dohle Bodies Pelger-Huet Anomaly Brandin Rods Platelet Estimate Clumped Platelets Plt Clumps, EDTA Large Platelets Giant Platelets Platelet Satelliting Plt Morphology Comment RBC Morphology Dimorphic RBCs Polychromasia Hypochromasia Poikilocytosis Anisocytosis Microcytosis Macrocytosis Spherocytes Pappenheimer Bodies Sickle Cells Target Cells Tear Drop Cells Ovalocytes Helmet Cells [place] Bodies Valatie Rings Jerome Cells Bite Cells Crenated Cell Elliptocytes Acanthocytes (Spur) Rouleaux Hemoglobin C Crystals Schistocytes Malaria parasites Tony Bodies Hem Pathologist Commnt Sodium (137-145) mmol/L Potassium (3.6-5.0) mmol/L Chloride (98-107) mmol/L Carbon Dioxide (22-30) mmol/L Anion Gap mmol/L BUN (9-20) mg/dL Creatinine (0.8-1.5) mg/dL Estimated GFR ml/min BUN/Creatinine Ratio % Glucose (75-100) mg/dL Calcium (8.4-10.2) mg/dL Total Bilirubin (0.1-1.2) mg/dL AST (5-40) units/L ALT (7-56) units/L Alkaline Phosphatase (35-129) units/L Total Creatine Kinase (55-170) units/L Total Protein (6.3-8.2) g/dL Albumin (3.9-5) g/dL Albumin/Globulin Ratio % Urine Color (Yellow) Urine Turbidity (Clear) Urine pH (5.0-7.0) Ur Specific [place] (1.003-1.030) Urine Protein (Negative) mg/dL Urine Glucose (UA) (Negative) mg/dL Urine Ketones (Negative) mg/dL Urine Blood (Negative) Urine Nitrite (Negative) Urine Bilirubin (Negative) Urine Urobilinogen (<2.0) mg/dL Ur Leukocyte Esterase (Negative) Urine WBC (Auto) (0.0-6.0) /HPF Urine RBC (Auto) (0.0-6.0) /HPF Hyaline Casts /LPF Urine Mucus /HPF Salicylates < 0.3 L (2.8-20.0) mg/dL Urine Opiates Screen Urine Methadone Screen Acetaminophen (10.0-30.0) ug/mL Ur Barbiturates Screen Ur Phencyclidine Scrn Ur Amphetamines Screen U Benzodiazepines Scrn Urine Cocaine Screen U Marijuana (THC) Screen Drugs of Abuse Note Plasma/Serum Alcohol (0-0.07) gm%
== END 2017-06-13 23:51 | disposition home or self-care (01) ==
LOC: EEVIPCON 13:05 → ED 13:05
DX: F32.9 Major depressive disorder, single episode, unspecified (principal); R45.851 Suicidal ideations
CPT/HCPCS: 36415; 80053; 80307; 81001; 82550; 85007; 85025; 96372; 99285; G0480; J1630; J2060; 80320; Q0162

== ENCOUNTER 2018-10-01 18:04 | Inpatient (IN) | payer MEDICAID ==
[2018-10-01] MEDS ORDERED: SUBLIMAZE IV ONE (20:59)
[2018-10-01] MEDS ORDERED: NACL 0.9% 1000 ML 1,000 ML IV ONE ×2 (20:59→22:10)
[2018-10-01] MEDS ORDERED: ZOFRAN IV ONE (20:59)
--- NOTE | 2018-10-01 21:05 | Emergency Department Report ---
HPI - General Chief Complaint: Nausea/Vomiting/Diarrhea Time Seen by Provider: 10/01/18 20:46 - HPI HPI: Room 6 The patient is a 48-year-old male presenting with chief complaint of abdominal pain nausea vomiting patient swelling. Patient states she's noticed swelling to his left jawline the past 2-3 days. The patient states yesterday he developed epigastric abdominal pain nausea vomiting and diarrhea. Patient states his pain has been constant and he gives a score of 8/10. 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/ alcohol abuse/GT placed in August 2016 due to the cancer - Surgical History Additional Surgical History: BIOPSY, ESOPHAGUS SURGERY, decreased hearing - Family History Family history: no significant - Social History Smoking Status: Current Every Day Smoker Substance Use Type: None (denies illicit drug use), Alcohol - Medications Home Medications: Home Medications Medication Instructions Recorded Confirmed Last Taken Type Morphine Concentrate [MORPHINE 10 mg PO Q12HR PRN #15 ml 02/07/18 08/09/18 Unknown Rx Conc 20 MG/ML ORAL LIQ] Fluticasone [Flonase] 1 spray NS QDAY 7 Days #1 bottle 08/09/18 Unknown Rx Lansoprazole Solutab [Prevacid 30 mg FEEDTUBE QDAY #30 tab.rapdis 08/09/18 Unknown Rx Solutab] Lipase/Protease/Amylase [Pancreaze 1 each FEEDTUBE PRN PRN #30 capsule 08/09/[address] 10,500 Unit] Ondansetron [Zofran ODT TAB] 4 mg PO Q8HR PRN #15 tab.rapdis 08/09/18 Unknown Rx Simple Syrup 30 ml FEEDTUBE PRN PRN #30 08/09/18 Unknown Rx oral.liqd Sodium Bicarbonate 325 mg FEEDTUBE PRN PRN #30 tablet 08/09/18 Unknown Rx cefUROXime [Ceftin] 500 mg PO Q12H #8 tablet 08/09/18 Unknown Rx ED Review of Systems ROS: Stated complaint: NAUSEA/VOMITING Other details as noted in HPI Constitutional: fever Eyes: denies: eye pain ENT: denies: ear pain Respiratory: no symptoms reported Cardiovascular: denies: chest pain Endocrine: no symptoms reported Gastrointestinal: abdominal pain, nausea, vomiting, diarrhea Genitourinary: denies: dysuria Musculoskeletal: denies: back pain Neurological: denies: headache Physical Exam - Physical Exam Vital Signs: Vital Signs 10/01/18 10/01/18 19:55 20:06 Temperature 97.5 F L Pulse Rate 89 Respiratory 18 16 Rate Blood Pressure 156/84 [Left] O2 Sat by Pulse 99 99 Oximetry Physical Exam: GENERAL: The patient is well-developed well-nourished male lying on stretcher not appearing to be in acute distress. [] HEENT: Normocephalic. Atraumatic. Extraocular motions are intact. Swelling to the region of the left mandibular body. No fluctuance NECK: Supple. Trachea midline CHEST/LUNGS: Clear to auscultation. There is no respiratory distress noted. HEART/CARDIOVASCULAR: Regular. There is no tachycardia. There is no gallop rub or murmur. ABDOMEN: Abdomen is soft, with tenderness to palpation in the epigastric region. Patient has normal bowel sounds. There is no abdominal distention. SKIN: There is no rash. There is no edema. There is no diaphoresis. NEURO: The patient is awake, alert, and oriented. The patient is cooperative. The patient has normal speech MUSCULOSKELETAL: There is no evidence of acute injury. ED Course Vital Signs 10/01/18 10/01/18 19:55 20:06 Temperature 97.5 F L Pulse Rate 89 Respiratory 18 16 Rate Blood Pressure 156/84 [Left] O2 Sat by Pulse 99 99 Oximetry ED Medical Decision Making - Lab Data Result diagrams: 10/01/18 21:03 10/01/18 21:03 - Radiology Data Radiology results: report reviewed (CT abdomen and pelvis, CT neck), image reviewed (CT abdomen and pelvis, CT neck) [facility] [address] [place] [address] Cat Scan Report Signed Patient: JONAH LORA [place]#: [id number] : 1970 Acct:[id number] Age/Sex: 48 / M ADM Date: 10/01/18 Loc: ED Attending Dr: Ordering Physician: JOHNIE GARCIA MD Date of Service: 10/01/18 Procedure(s): CT abdomen pelvis w con Accession Number(s): [id number] cc: JOHNIE GARCIA MD PROCEDURE: CT ABDOMEN PELVIS W CON TECHNIQUE: Computerized axial tomography of the abdomen and pelvis was performed after the IV injection of iodinated nonionic contrast. Individualized dose optimization techniques were utilized for this exam CT DOSE LENGTH PRODUCT: 316.9 mGycm HISTORY: epigastric abdominal pain nausea vomiting COMPARISONS: None . FINDINGS: Visualized lower thorax: No significant abnormality. Liver: Normal size and attenuation. Spleen: Normal size and attenuation. Gallbladder and biliary system: Normal. Pancreas: Normal. Adrenals: Normal. Kidneys: Normal. GI tract: There is a percutaneous gastrostomy. There are no dilated loops of bowel. The appendix is not visualized . Lymph nodes and mesentery: Normal. Vasculature: Normal.. Bladder: Normal. Reproductive organs: Normal. Peritoneum: No free fluid. Musculoskeletal structures: No significant abnormality. Other: None . IMPRESSION: Percutaneous gastrostomy. No obstruction. This document is electronically signed by Contreras Alvarado MD., October 01 2018 11:19:39 PM ET Transcribed By: BRP Dictated By: CONTRERAS ALVARADO MD Electronically Authenticated By: CONTRERAS ALVARADO MD Signed Date/Time: 10/01/182320 DD/ 53 TD/TT: 10/01/182253 [facility] [address] [place] [address] Cat Scan Report Signed Patient: JONAH LORA R#: [id number] : 1970 Acct:[id number] Age/Sex: 48 / M ADM Date: 10/01/18 Loc: ED Attending Dr: Ordering Physician: JOHNIE GARCIA MD Date of Service: 10/01/18 Procedure(s): CT neck w con Accession Number(s): [id number] cc: JOHNIE GARCIA MD PROCEDURE: CT NECK W CON TECHNIQUE: Computerized axial tomography of the soft tissue neck was performed following the IV injection of iodinated nonionic contrast. CT DOSE LENGTH PRODUCT: 436.1 mGycm HISTORY: right neck pain, left jaw swelling COMPARISONS: None . TECHNICAL QUALITY: Satisfactory. FINDINGS: Skull base: Visualized portions are normal . Paranasal sinuses: Mucosal thickening. Nasopharynx: Normal . Oral cavity: There is poor dentition. There are missing teeth and multiple dental cavities. There are lucencies of the mandible and maxilla . Epiglottis/vallecula: Normal . Larynx/pyriform sinuses: Normal . Thyroid gland: There is 4.3 cm mass in the right side of the thyroid gland . Lymph nodes: Enlarged submental lymph nodes. Salivary glands: Enlarged left submandibular gland. Submental lymph nodes measuring 1.2 cm . Upper thorax: Fibrotic densities of the lung apices . Vasculature: Atherosclerotic calcifications. IMPRESSION: Enlarged left submandibular gland. No stones are seen. Poor dentition with cavities and missing teeth. Nonspecific lucencies of maxilla and mandible with possible osteomyelitis. Right thyroid mass. This document is electronically signed by Contreras Alvarado MD., October 01 2018 11:30:57 PM ET Transcribed By: BRP Dictated By: CONTRERAS ALVARADO MD Electronically Authenticated By: CONTRERAS ALVARADO MD Signed Date/Time: 10/01/182332 DD/ 03 TD/TT: 10/01/182303 - Differential Diagnosis pancreatitis, gastroenteritis, partial small bowel traction, sialolithiasis Critical care attestation.: If time is entered above; I have spent that time in minutes in the direct care of this critically ill patient, excluding procedure time. ED Disposition Clinical Impression: Acute abdominal pain, Hyponatremia Disposition: OP ADMIT IP TO THIS HOSP Is pt being admited?: Yes Does the pt Need Aspirin: No Condition: Fair Referrals: PRIMARY CARE, [Primary Care Provider] - 3-5 Days Time of Disposition: 23:50 (hospitalist paged (Dr. Sunshine Xiong))
[2018-10-01 21:27] LABS: Basophils % (Auto) 0.4 % (0.0-1.8); Eosinophils # (Auto) 0.1 K/mm3 (0.0-0.4); Eosinophils % (Auto) 1.2 % (0.0-4.3); Hematocrit 36.7 % (35.5-45.6); Hemoglobin 12.5 gm/dl (11.8-15.2); Lymphocytes # (Auto) 1.4 K/mm3 (1.2-5.4); Lymphocytes % (Auto) 20.4 % (13.4-35.0); Mean Corpuscular HGB Conc 34 % (32-34); Mean Corpuscular Volume 81 fl (84-94); Monocytes # (Auto) 0.9 K/mm3 (0.0-0.8); Monocytes % (Auto) 13.6 % (0.0-7.3); Platelet Count 303 K/mm3 (140-440); Red Blood Count 4.52 M/mm3 (3.65-5.03); Red Cell Distribution Width 13.7 % (13.2-15.2)
[2018-10-01 21:46] LABS: Alanine Aminotransferase 10 units/L (7-56); Albumin 4.9 g/dL (3.9-5); BUN/Creatinine Ratio 13; Blood Urea Nitrogen 8 mg/dL (9-20); Calcium 9.1 mg/dL (8.4-10.2); Hemolysis Index 9
[2018-10-01 23:18] LABS: Bilirubin,Urine NEG (Negative); Blood,Urine NEG (Negative); Color,Urine Colorless (Yellow); Protein,Urine <15 mg/dL mg/dL (Negative); RBC,Urine < 1.0 /HPF (0.0-6.0); Urobilinogen,Urine < 2.0 mg/dL (<2.0)
--- NOTE | 2018-10-01 23:21 | Cat Scan Report ---
PROCEDURE: CT ABDOMEN PELVIS W CON TECHNIQUE: Computerized axial tomography of the abdomen and pelvis was performed after the IV inject ion of iodinated nonionic contrast. Individualized dose optimization techniques were utilized for thi s exam CT DOSE LENGTH PRODUCT: 316.9 mGycm HISTORY: epigastric abdominal pain nausea vomiting COMPARISONS: None . FINDINGS: Visualized lower thorax: No significant abnormality. Liver: Normal size and attenuation. Spleen: Normal size and attenuation. Gallbladder and biliary system: Normal. Pancreas: Normal. Adrenals: Normal. Kidneys: Normal. GI tract: There is a percutaneous gastrostomy. There are no dilated loops of bowel. The appendix is not visualized . Lymph nodes and mesentery: Normal. Vasculature: Normal.. Bladder: Normal. Reproductive organs: Normal. Peritoneum: No free fluid. Musculoskeletal structures: No significant abnormality. Other: None . IMPRESSION: Percutaneous gastrostomy. No obstruction. This document is electronically signed by Eduar Alvarado MD., October 01 2018 11:19:39 PM ET
--- NOTE | 2018-10-01 23:33 | Cat Scan Report ---
PROCEDURE: CT NECK W CON TECHNIQUE: Computerized axial tomography of the soft tissue neck was performed following the IV inje ction of iodinated nonionic contrast. CT DOSE LENGTH PRODUCT: 436.1 mGycm HISTORY: right neck pain, left jaw swelling COMPARISONS: None . TECHNICAL QUALITY: Satisfactory. FINDINGS: Skull base: Visualized portions are normal . Paranasal sinuses: Mucosal thickening. Nasopharynx: Normal . Oral cavity: There is poor dentition. There are missing teeth and multiple dental cavities. There are lucencies of the mandible and maxilla . Epiglottis/vallecula: Normal . Larynx/pyriform sinuses: Normal . Thyroid gland: There is 4.3 cm mass in the right side of the thyroid gland . Lymph nodes: Enlarged submental lymph nodes. Salivary glands: Enlarged left submandibular gland. Submental lymph nodes measuring 1.2 cm . Upper thorax: Fibrotic densities of the lung apices . Vasculature: Atherosclerotic calcifications. IMPRESSION: Enlarged left submandibular gland. No stones are seen. Poor dentition with cavities and missing teeth. Nonspecific lucencies of maxilla and mandible with po ssible osteomyelitis. Right thyroid mass. This document is electronically signed by Eduar Alvarado MD., October 01 2018 11:30:57 PM ET
--- NOTE | 2018-10-01 23:55 | History and Physical Report ---
Medications and Allergies Allergies Allergy/AdvReac Type Severity Reaction Status Date / Time No Known Allergies Allergy Verified 03/15/17 19:58 Home Medications Medication Instructions Recorded Confirmed Last Taken Type Morphine Concentrate [MORPHINE 10 mg PO Q12HR PRN #15 ml 02/07/18 08/09/18 Unk nown Rx Conc 20 MG/ML ORAL LIQ] Fluticasone [Flonase] 1 spray NS QDAY 7 Days #1 bottle 08/09/18 Unknown Rx Lansoprazole Solutab [Prevacid 30 mg FEEDTUBE QDAY #30 tab.rapdis 08/09/18 Unknown Rx Solutab] Lipase/Protease/Amylase [Pancreaze 1 each FEEDTUBE PRN PRN #30 capsule 08/09/18 Unknown Rx 10,500 Unit] Ondansetron [Zofran ODT TAB] 4 mg PO Q8HR PRN #15 tab.rapdis 08/09/18 Unknown Rx Simple Syrup 30 ml FEEDTUBE PRN PRN #30 08/09/18 Unknown Rx oral.liqd Sodium Bicarbonate 325 mg FEEDTUBE PRN PRN #30 tablet 08/09/18 Unknown Rx cefUROXime [Ceftin] 500 mg PO Q12H #8 tablet 08/09/18 Unknown Rx Exam - Constitutional Vitals: Temp Pulse Resp BP Pulse Ox 97.5 F L 95 H 15 121/69 100 10/01/18 19:55 10/01/18 22:30 10/01/18 22:16 10/01/18 22:16 10/01/18 22:16 Results - Labs CBC & Chem 7: 10/01/18 21:03 10/01/18 21:03 Labs: Abnormal lab results 10/01/18 10/01/18 Range/Units 21:03 21:03 MCV 81 L (84-94) fl [place] % (Auto) 13.6 H (0.0-7.3) % [place] # 0.9 H (0.0-0.8) K/mm3 Sodium 118 L* (137-145) mmol/L Chloride 82.2 L (98-107) mmol/L Carbon Dioxide 18 L (22-30) mmol/L BUN 8 L (9-20) mg/dL Creatinine 0.6 L (0.8-1.5) mg/dL Total Protein 8.7 H (6.3-8.2) g/dL
[2018-10-02 00:34] LABS: BUN/Creatinine Ratio 12; Blood Urea Nitrogen 7 mg/dL (9-20); Calcium 8.6 mg/dL (8.4-10.2); Hemolysis Index 26
[2018-10-02] MEDS ORDERED: MORPHINE ONE ×4 (01:18→17:00)
[2018-10-02] MEDS ORDERED: MORPHINE IV ONE (01:30)
[2018-10-02] MEDS: VANCOMYCIN/NS 1 GM/250 ML 1 GM/250 ML BAG IV SCH ×2 (03:05→22:06)
[2018-10-02] MEDS ORDERED: TYLENOL PO PRN (05:50)
[2018-10-02] MEDS ORDERED: NACL 0.9% 1000 ML 1,000 ML IV SCH (06:00)
[2018-10-02] MEDS ORDERED: SIMPLE SYRUP FEEDTUBE PRN ×6 (06:02→15:58)
[2018-10-02] MEDS ORDERED: SODIUM BICARBONATE FEEDTUBE PRN ×3 (06:02→15:58)
[2018-10-02] MEDS ORDERED: PANCREAZE DR 10,500 UNIT FEEDTUBE PRN ×3 (06:02→15:58)
[2018-10-02] MEDS ORDERED: NACL 0.9% 1000 ML 1,000 ML ONE (06:06)
--- NOTE | 2018-10-02 06:08 | History and Physical Report ---
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 Also stated he has been spitting up blood since 6 PM, he was at [facility] on Monday, he had a CT done interval enlargement of large right thyroid mass, severe dental disease with worsening of the periapical abscess at the right maxillary thu. He supposed to follow-up and amylase possible surgery. He has chronic abdominal pain since the placement of the G-tube which has not changed Review of systems Constitutional: no weight loss, chills, fever Ears, eyes, nose, mouth and throat: no nasal congestion, no nasal discharge, no sinus pressure, no vision change, no red eye. Neck: No neck pain or rigidity. Cardiovascular: no palpitations, chest pain Respiratory: no cough, shortness of breath Gastrointestinal: no hematochezia, +abdominal pain Genitourinary : no frequency , no hematuria Musculoskeletal: no joint swelling or muscle ache Integumentary: no rash, no pruritis Neurological: no parathesias, no focal weakness Endocrine: no cold or heat intolerance, no polyuria or polydipsia Hematologic/Lymphatic: no easy bruising, no easy bleeding, no gland swelling Allergic/Immunologic: no urticaria, no angioedema.. PAST MEDICAL HISTORY: NHL as a child,hyroid mass PAST SURGICAL HISTORY: Esophageal surgery SOCIAL HISTORY: Denies alcohol, drugs, tobacco FAMILY HISTORY: Hypertension Medications and Allergies Allergies Allergy/AdvReac Type Severity Reaction Status Date / Time No Known Allergies Allergy Verified 03/15/17 19:58 Home Medications Medication Instructions Recorded Confirmed Last Taken Type Amoxicillin/K Clav Tab [Augmentin 1 tab PO Q12HR #28 tab 10/05/18 Unknown Rx 875 mg] Fluconazole [Diflucan TAB] 2 tab PO QDAY #28 tablet 10/05/18 Unknown Rx Gabapentin [Neurontin] 100 mg PO Q8HR #90 capsule 10/05/18 Unknown Rx Active Meds: Active Medications Acetaminophen (Tylenol) 650 mg PO Q4H PRN PRN Reason: Pain MILD(1-3)/Fever >100.5/ENG Vancomycin HCl (Vancomycin/Ns 1 Gm/250 Ml) 1 gm in 250 mls @ 166.667 mls/hr IV Q12H DELISA; Protocol Last Admin: 10/02/18 03:05 Dose: 166.667 mls/hr Documented by: Sodium Chloride (Nacl 0.9% 1000 Ml) 1,000 mls @ 75 mls/hr IV DIRECT DELISA Morphine Sulfate (Morphine) 2 mg IV Q4H PRN PRN Reason: Pain, Moderate (4-6) Ondansetron HCl (Zofran) 4 mg IV Q8H PRN PRN Reason: Nausea And Vomiting Sodium Chloride (Sodium Chloride Flush Syringe 10 Ml) 10 ml IV BID DELISA Sodium Chloride (Sodium Chloride Flush Syringe 10 Ml) 10 ml IV PRN PRN PRN Reason: LINE FLUSH Exam - Physical Exam Narrative exam: General Apperance: The patient lying in bed, breathing comfortable HEENT: Normocephalic, atraumatic. Pupils equally round and reactive to light, EOMI, no sclericterus or JVD or thyromegaly or nodule. , no carotid bruit, mucous membranes moist, no exudate or erythema, tenderness on the right side of the neck Heart: S1-S2, regular is rhythm Lungs: Clear to auscultation bilaterally, breathing comfortable Abdomen: Positive bowel sounds, soft, nontender, nondistended, no organomegaly Extremities: No edema cyanosis clubbing Skin: no rash, nodule, warm and dry Neuro: cranial nerves 2-12 intact, speech is fluent, motor/sensory intact - Constitutional Vitals: Temp Pulse Resp BP Pulse Ox 97.5 F L 101 H 24 140/96 99 10/01/18 19:55 10/02/18 06:00 10/02/18 04:05 10/02/18 06:00 10/02/18 06:00 Results - Labs CBC & Chem 7: 10/03/18 07:29 10/03/18 07:29 Labs: Abnormal lab results 10/01/18 10/01/18 10/02/18 Range/Units 21:03 21:03 00:04 MCV 81 L (84-94) fl [place] % (Auto) 13.6 H (0.0-7.3) % [place] # 0.9 H (0.0-0.8) K/mm3 Sodium 118 L* 121 L (137-145) mmol/L Chloride 82.2 L 89.4 L (98-107) mmol/L Carbon Dioxide 18 L 16 L (22-30) mmol/L BUN 8 L 7 L (9-20) mg/dL Creatinine 0.6 L 0.6 L (0.8-1.5) mg/dL Total Protein 8.7 H (6.3-8.2) g/dL - Imaging and Cardiology CT scan - abdomen: report reviewed CT scan - pelvis: report reviewed Assessment and Plan CT neck reviewed Assessment Possible osteomyelitis of the maxilla and mandible Blood Hyponatremia Thyroid mass History of non-Hodgkin lymphoma Plan Admit to medicine Start IV vancomycin, and cultures Start IV fluids, follow sodium, hemoglobin Consult infectious disease, case discussed with Dr. Ewing DVT prophylaxis, IV morphine
[2018-10-02] MEDS ORDERED: ZOFRAN ONE ×2 (06:11→13:01)
[2018-10-02] MEDS: MORPHINE IV PRN ×4 (06:15→22:41)
[2018-10-02] MEDS: ZOFRAN IV PRN ×3 (06:15→22:41)
[2018-10-02 06:59] LABS: Basophils % (Auto) 0.4 % (0.0-1.8); Eosinophils # (Auto) 0.1 K/mm3 (0.0-0.4); Eosinophils % (Auto) 2.2 % (0.0-4.3); Hematocrit 36.6 % (35.5-45.6); Hemoglobin 12.4 gm/dl (11.8-15.2); Lymphocytes # (Auto) 1.1 K/mm3 (1.2-5.4); Lymphocytes % (Auto) 27.4 % (13.4-35.0); Mean Corpuscular HGB Conc 34 % (32-34); Mean Corpuscular Volume 82 fl (84-94); Monocytes # (Auto) 0.6 K/mm3 (0.0-0.8); Monocytes % (Auto) 13.8 % (0.0-7.3); Platelet Count 283 K/mm3 (140-440); Red Blood Count 4.44 M/mm3 (3.65-5.03); Red Cell Distribution Width 13.6 % (13.2-15.2)
[2018-10-02 07:17] LABS: BUN/Creatinine Ratio 12; Blood Urea Nitrogen 7 mg/dL (9-20); Calcium 8.6 mg/dL (8.4-10.2); Hemolysis Index 4
[2018-10-02] MEDS ORDERED: LOVENOX SUB-Q SCH (10:00)
[2018-10-02 11:12] LABS: Hematocrit 34.1 % (35.5-45.6); Hemoglobin 11.8 gm/dl (11.8-15.2)
[2018-10-02 11:30] LABS: BUN/Creatinine Ratio 10; Blood Urea Nitrogen 7 mg/dL (9-20); Calcium 8.8 mg/dL (8.4-10.2); Hemolysis Index 18
[2018-10-02 14:29] LABS: Hematocrit 33.7 % (35.5-45.6); Hemoglobin 11.6 gm/dl (11.8-15.2)
[2018-10-02 14:46] LABS: BUN/Creatinine Ratio 12; Blood Urea Nitrogen 7 mg/dL (9-20); Calcium 8.8 mg/dL (8.4-10.2); Hemolysis Index 3
--- NOTE | 2018-10-02 15:41 | Consultation ---
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 He states that he has also been coughing out blood. He is "tired of suffering". He underwent a CT neck with IV contrast which showed an enlarged left submandibular gland, also showed extensive dental cavities and nonspecific lucencies over the maxilla and mandible with concerns for possible o steomyelitis. Also showed interval enlargement of the right thyroid mass. He reports recent CT scan done last Monday at [place], follows up with ENT at [facility]. Infectious diseases was consulted due to concerns for jaw osteomyelitis. Patient reports he lost all his teeth secondary to the maligna ncy. He has continued to have significant dental issues, has been on oral Augmentin in the past states he doesn't tolerate it well, he states he would rather take IV abx. Review of Systems: General: low grade fevers, chills + HEENT: no new visual disturbance Respiratory: No cough, sputum, hemoptysis or shortness of breath Cardiovascular: No chest pain, syncope Gastrointestinal: + nausea, vomiting Genitourinary: No dysuria or hematuria Musculoskeletal: No new or worsening joint pain or back pain. Left neck pain Neurologic: No headaches, seizures Hematologic: No easy bruising or bleeding Endocrine: + for night sweats and acute weight loss Skin: negative for rash, jaundice Psychiatric: No suicidal or homicidal ideation Medications and Allergies Allergies Allergy/AdvReac Type Severity Reaction Status Date / Time No Known Allergies Allergy Verified 03/15/17 19:58 Home Medications Medication Instructions Recorded Confirmed Last Taken Type No Known Home Medications [No 10/02/18 10/02/18 Unknown History Reported Home Medications] Active Meds: Active Medications Acetaminophen (Tylenol) 650 mg PO Q4H PRN PRN Reason: Pain MILD(1-3)/Fever >100.5/ENG Lipase/Protease/Amylase (Pancreaze Dr 10,500 Unit) 1 each FEEDTUBE PRN PRN PRN Reason: For Clogged Feeding Tube Vancomycin HCl (Vancomycin/Ns 1 Gm/250 Ml) 1 gm in 250 mls @ 166.667 mls/hr IV Q12H DELISA; Protocol Last Admin: 10/02/18 03:05 Dose: 166.667 mls/hr Documented by: Sodium Chloride (Nacl 0.9% 1000 Ml) 1,000 mls @ 75 mls/hr IV DIRECT DELISA Last Admin: 10/02/18 06:10 Dose: 75 mls/hr Documented by: Morphine Sulfate (Morphine) 2 mg IV Q4H PRN PRN Reason: Pain, Moderate (4-6) Last Admin: 10/02/18 08:55 Dose: 2 mg Documented by: Ondansetron HCl (Zofran) 4 mg IV Q8H PRN PRN Reason: Nausea And Vomiting Last Admin: 10/02/18 13:03 Dose: 4 mg Documented by: Simple Syrup (Simple Syrup) 15 ml FEEDTUBE PRN PRN PRN Reason: Hypoglycemia Simple Syrup (Simple Syrup) 30 ml FEEDTUBE PRN PRN PRN Reason: Hypoglycemia Sodium Bicarbonate (Sodium Bicarbonate) 325 mg FEEDTUBE PRN PRN PRN Reason: For Clogged Feeding Tube Sodium Chloride (Sodium Chloride Flush Syringe 10 Ml) 10 ml IV BID DELISA Sodium Chloride (Sodium Chloride Flush Syringe 10 Ml) 10 ml IV PRN PRN PRN Reason: LINE FLUSH Physical Examination - Physical Exam Narrative exam: Physical Exam: Constitutional: Alert, cooperative. No acute distress. Cachexia Head, Ears, Nose: Normocephalic, atraumatic. External ears, nose normal Eyes: Conjunctivae/corneas clear. No icterus. No ptosis. Neck: Right thyroid enlargement, left submandibular region is quite hard with severe tenderness Oral: dentition poor with missing and decayed teeth, thrush + of hard palate, unable to open mouth wide due to pain Cardiovascular: S1, S2 normal. Respiratory: Good air entry, clear to auscultation bilaterally GI: Soft, diffusely tender; bowel sounds normal. No peritoneal signs. G-tube + Musculoskeletal: No pedal edema, no cyanosis. Skin: No rash or abscess Hem/Lymphatic: No palpable cervical or supraclavicular nodes. No lymphangitis Psych: Mood ok. Affect normal Neurological: Awake, alert, oriented. No gross abnormality - Constitutional Vitals: Vital Signs Temp Pulse Resp BP Pulse Ox 97.5 F L 82 16 122/83 98 10/01/18 19:55 10/02/18 14:31 10/02/18 14:31 10/02/18 14:31 10/02/18 14:31 Temperature -Last 24 Hours Temperature 97.5 F Results - Labs CBC & Chem 7: 10/02/18 13:57 10/02/18 13:57 Labs: Abnormal lab results 10/01/18 10/01/18 10/02/18 Range/Units 21:03 21:03 00:04 WBC (4.5-11.0) K/mm3 Hgb (11.8-15.2) gm/dl Hct (35.5-45.6) % MCV 81 L (84-94) fl [place] % (Auto) 13.6 H (0.0-7.3) % Lymph # (1.2-5.4) K/mm3 [place] # 0.9 H (0.0-0.8) K/mm3 Sodium 118 L* 121 L (137-145) mmol/L Chloride 82.2 L 89.4 L (98-107) mmol/L Carbon Dioxide 18 L 16 L (22-30) mmol/L BUN 8 L 7 L (9-20) mg/dL Creatinine 0.6 L 0.6 L (0.8-1.5) mg/dL Glucose (75-100) mg/dL Total Protein 8.7 H (6.3-8.2) g/dL 10/02/18 10/02/18 10/02/18 Range/Units 06:41 06:41 10:09 WBC 4.2 L (4.5-11.0) K/mm3 Hgb (11.8-15.2) gm/dl Hct (35.5-45.6) % MCV 82 L (84-94) fl [place] % (Auto) 13.8 H (0.0-7.3) % Lymph # 1.1 L (1.2-5.4) K/mm3 [place] # (0.0-0.8) K/mm3 Sodium 129 L D 132 L (137-145) mmol/L Chloride 95.4 L 96.7 L (98-107) mmol/L Carbon Dioxide 18 L 18 L (22-30) mmol/L BUN 7 L 7 L (9-20) mg/dL Creatinine 0.6 L 0.7 L (0.8-1.5) mg/dL Glucose 155 H (75-100) mg/dL Total Protein (6.3-8.2) g/dL 10/02/18 10/02/18 10/02/18 Range/Units 10:56 13:57 13:57 WBC (4.5-11.0) K/mm3 Hgb 11.6 L (11.8-15.2) gm/dl Hct 34.1 L 33.7 L (35.5-45.6) % MCV (84-94) fl [place] % (Auto) (0.0-7.3) % Lymph # (1.2-5.4) K/mm3 [place] # (0.0-0.8) K/mm3 Sodium 130 L (137-145) mmol/L Chloride 97.4 L (98-107) mmol/L Carbon Dioxide 20 L (22-30) mmol/L BUN 7 L (9-20) mg/dL Creatinine 0.6 L (0.8-1.5) mg/dL Glucose 114 H (75-100) mg/dL Total Protein (6.3-8.2) g/dL - Imaging and Cardiology CT scan - abdomen: report reviewed, image reviewed (CT abdomen pelvis shows no acute intra-abdominal pathology. Percutaneous gastrostomy tube present.) CT Scan - head: report reviewed, image reviewed (CT neck with IV contrast showed enlarged left submandibular gland. Poor dentition with cavities and missing teeth along with nonspecific lucencies of the maxilla and mandible with possible osteomyelitis. 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 Findings on yesterday's CT do not appear that different from CT dated 08/07/2018. This is likely a chronic process. Antibiotics alone are not going to be curative. Patient will need evaluation by OMFS (Oromaxillofacial surgery), upon discharge, he should follow up with his physicians at [facility]. For now, will start IV Unasyn, anticipate discharge on PO Augmentin / levofloxacin to cover oral sae. 2) Thyroid mass: per patient, this was needle biopsied 3 years ago and was reportedly non malignant. Follow up with ENT. 3) Hyponatremia: correction per IMS. 4) Oral thrush: fluconazole ordered. 5) Malnutrition 6) Left submandibular swelling and tenderness: ?acute on chronic. no stones seen on CT. Recs: Discontinued Vancomycin Started IV Unasyn 3 gm q6 hrs Fluconazole IV 400 mg daily to cover for possible esophagitis Patient will need evaluation by OMFS (Oromaxillofacial surgery), upon discharge, he should follow up with his physicians at [facility], anticipate discharge on PO Augmentin / levofloxacin to cover oral sae ESR CRP ordered MD Wanda [facility] C: [phone] O: [phone] F: [phone]
--- NOTE | 2018-10-02 16:09 | Progress Note ---
Assessment and Plan Assessment and plan: --Chronic maxillary and mandibular osteomyelitis; Continue current antibiotics, follow cultures, ID evaluation and recommendation noted and appreciated, patient needs to follow up with oromaxillary facial surgeon at [facility] upon discharge --Hyponatremia; replacement therapy with normal saline Closely monitor electrolytes --Left submandibular swelling/inflammation versus infection; continue current antibiotics and supportive care --Malnutrition/cachexia; nutrition supplements and to feeding --Metabolic acidosis; significant improvement Continue vigorous IV hydration --Status post PEG status; Tube feeds per protocol, PEG care --DC planning. Case management --DVT prophylaxis; Lovenox Monitor closely and adjust management as needed Extended care 31 minutes History Interval history: Patient seen and examined in ER awaiting room assignment Medical records reviewed Patient feels slightly better complaints of generalized weakness And swelling of the submandibular area Alert awake oriented 3 Vital signs reviewed Hospitalist Physical - Constitutional Vitals: Temp Pulse Resp BP Pulse Ox 97.5 F L 82 16 122/83 98 10/01/18 19:55 10/02/18 14:31 10/02/18 14:31 10/02/18 14:31 10/02/18 14:31 General appearance: Present: no acute distress, cachectic, disheveled - EENT Eyes: Present: PERRL, EOM intact ENT: other (swelling submandibular gland) - Neck Neck: Present: supple ( swelling submandibular gland), enlarged thyroid - Respiratory Respiratory effort: normal Respiratory: bilateral: diminished, rhonchi, negative: rales, wheezing - Cardiovascular Rhythm: regular Heart Sounds: Present: S1 & S2 - Extremities Extremities: no ischemia, No edema - Abdominal General gastrointestinal: soft, non-tender, non-distended, normal bowel sounds, other (PEG tube in place) - Integumentary Integumentary: Present: clear, warm - Psychiatric Psychiatric: appropriate mood/affect, cooperative - Neurologic Neurologic: moves all extremities Results - Labs CBC & Chem 7: 10/02/18 13:57 10/02/18 13:57 Labs: Laboratory Last Values WBC 4.2 K/mm3 (4.5-11.0) L 10/02/18 06:41 RBC 4.44 M/mm3 (3.65-5.03) 10/02/18 06:41 Hgb 11.6 gm/dl (11.8-15.2) L 10/02/18 13:57 Hct 33.7 % (35.5-45.6) L 10/02/18 13:57 MCV 82 fl (84-94) L 10/02/18 06:41 MCH 28 pg (28-32) 10/02/18 06:41 MCHC 34 % (32-34) 10/02/18 06:41 RDW 13.6 % (13.2-15.2) 10/02/18 06:41 Plt Count 283 K/mm3 (140-440) 10/02/18 06:41 Lymph % (Auto) 27.4 % (13.4-35.0) 10/02/18 06:41 [place] % (Auto) 13.8 % (0.0-7.3) H 10/02/18 06:41 Eos % (Auto) 2.2 % (0.0-4.3) 10/02/18 06:41 Baso % (Auto) 0.4 % (0.0-1.8) 10/02/18 06:41 Lymph # 1.1 K/mm3 (1.2-5.4) L 10/02/18 06:41 [place] # 0.6 K/mm3 (0.0-0.8) 10/02/18 06:41 Eos # 0.1 K/mm3 (0.0-0.4) 10/02/18 06:41 Baso # 0.0 K/mm3 (0.0-0.1) 10/02/18 06:41 Seg Neutrophils % 56.2 % (40.0-70.0) 10/02/18 06:41 Seg Neutrophils # 2.4 K/mm3 (1.8-7.7) 10/02/18 06:41 Sodium 130 mmol/L (137-145) L 10/02/18 13:57 Potassium 4.3 mmol/L (3.6-5.0) 10/02/18 13:57 Chloride 97.4 mmol/L (98-107) L 10/02/18 13:57 Carbon Dioxide 20 mmol/L (22-30) L 10/02/18 13:57 Anion Gap 17 mmol/L 10/02/18 13:57 BUN 7 mg/dL (9-20) L 10/02/18 13:57 Creatinine 0.6 mg/dL (0.8-1.5) L 10/02/18 13:57 Estimated GFR > 60 ml/min 10/02/18 13:57 BUN/Creatinine Ratio 12 % 10/02/18 13:57 Glucose 114 mg/dL (75-100) H 10/02/18 13:57 POC Glucose 85 (70-105) 10/02/18 06:50 Calcium 8.8 mg/dL (8.4-10.2) 10/02/18 13:57 Total Bilirubin 0.50 mg/dL (0.1-1.2) 10/01/18 21:03 AST 28 units/L (5-40) 10/01/18 21:03 ALT 10 units/L (7-56) 10/01/18 21:03 Alkaline Phosphatase 93 units/L (35-129) 10/01/18 21:03 Total Protein 8.7 g/dL (6.3-8.2) H 10/01/18 21:03 Albumin 4.9 g/dL (3.9-5) 10/01/18 21:03 Albumin/Globulin Ratio 1.3 % 10/01/18 21:03 Lipase 18 units/L (13-60) 10/01/18 21:03 Urine Color Colorless (Yellow) 10/01/18 23:00 Urine Turbidity Clear (Clear) 10/01/18 23:00 Urine pH 6.0 (5.0-7.0) 10/01/18 23:00 Ur Specific [place] 1.019 (1.003-1.030) 10/01/18 23:00 Urine Protein <15 mg/dl mg/dL (Negative) 10/01/18 23:00 Urine Glucose (UA) Neg mg/dL (Negative) 10/01/18 23:00 Urine Ketones 20 mg/dL (Negative) 10/01/18 23:00 Urine Blood Neg (Negative) 10/01/18 23:00 Urine Nitrite Neg (Negative) 10/01/18 23:00 Urine Bilirubin Neg (Negative) 10/01/18 23:00 Urine Urobilinogen < 2.0 mg/dL (<2.0) 10/01/18 23:00 Ur Leukocyte Esterase Neg (Negative) 10/01/18 23:00 Urine WBC (Auto) 1.0 /HPF (0.0-6.0) 10/01/18 23:00 Urine RBC (Auto) < 1.0 /HPF (0.0-6.0) 10/01/18 23:00 Active Medications - Current Medications Current Medications: Generic Name Dose Route Start Last Admin Trade Name Freq PRN Reason Stop Dose Admin Acetaminophen 650 mg 10/02/18 05:50 Tylenol PO Q4H PRN Pain MILD(1-3)/Fever >100.5/ENG Lipase/Protease/Amylase 1 each 10/02/18 06:02 Elio Hernandez 10,500 Unit FEEDTUBE PRN PRN For Clogged Feeding Tube Lipase/Protease/Amylase 1 each 10/02/18 15:58 Elio Hernandez 10,500 Unit FEEDTUBE PRN PRN For Clogged Feeding Tube Sodium Chloride 1,000 mls @ 75 mls/hr 10/02/18 06:00 10/02/18 06:10 Nacl 0.9% 1000 Ml IV 75 mls/hr DIRECT DELISA Administration Ampicillin Sodium/Sulbactam Sodium 3 gm in 100 mls @ 200 mls/hr 10/02/18 18:00 Unasyn/Ns 3 Gm/100 Ml IV Q6HR DELISA Protocol Fluconazole 200 mls @ 100 mls/hr 10/02/18 16:00 Diflucan IV Q24HR DELISA Protocol Morphine Sulfate 2 mg 10/02/18 05:50 10/02/18 08:55 Morphine IV 2 mg Q4H PRN Administration Pain, Moderate (4-6) Ondansetron HCl 4 mg 10/02/18 05:50 10/02/18 13:03 Zofran IV 4 mg Q8H PRN Administration Nausea And Vomiting Simple Syrup 15 ml 10/02/18 06:02 Simple Syrup FEEDTUBE PRN PRN Hypoglycemia Simple Syrup 30 ml 10/02/18 06:02 Simple Syrup FEEDTUBE PRN PRN Hypoglycemia Simple Syrup 15 ml 10/02/18 15:58 Simple Syrup FEEDTUBE PRN PRN Hypoglycemia Simple Syrup 30 ml 10/02/18 15:58 Simple Syrup FEEDTUBE PRN PRN Hypoglycemia Sodium Bicarbonate 325 mg 10/02/18 06:02 Sodium Bicarbonate FEEDTUBE PRN PRN For Clogged Feeding Tube Sodium Bicarbonate 325 mg 10/02/18 15:58 Sodium Bicarbonate FEEDTUBE PRN PRN For Clogged Feeding Tube Sodium Chloride 10 ml 10/02/18 10:00 Sodium Chloride Flush Syringe 10 Ml IV BID DELISA Sodium Chloride 10 ml 10/02/18 05:50 Sodium Chloride Flush Syringe 10 Ml IV PRN PRN LINE FLUSH Nutrition/Malnutrition Assess - Dietary Evaluation Nutrition/Malnutrition Findings: Nutrition Notes Start: 10/02/18 10:27 Freq: Status: Active Protocol: Document 10/02/18 10:27 RM (Rec: 10/02/18 10:46 RM [email or web address]) Nutrition Notes Need for Assessment generated from: MD Order Initial or Follow up Assessment Other Pertinent Diagnosis NHL, G tube, Dysphagia Current Diet TF (blank) Labs/Tests Reviewed Pertinent Medications Reviewed Height 6 ft Weight 61.235 kg [place] Body Weight (kg) 80.90 BMI 18.3 Subjective/Other Information Consulted for TF recommendation. Pt in ED. Burn Absent Trauma Absent #1 Nutrition Diagnosis Inadequate oral intake Etiology dysphagia As Evidenced by Signs and Symptoms pt requiring enteral nutrition to meet nutritional needs Is patient on ventilator? No Is Patient Ambulatory and/or Out of Bed No REE-([facility]-confined to bed) 1816.488 Kcal/Kg value to use for calculation 38 Approximate Energy Requirements Using 2327 kcal/Kg Calculation Used for Recommendations Kcal/kg Additional Notes Protein Needs: 73-92g (1.2-1. 5g/kg) Fluid Needs: 1 ml/kcal Nutrition Intervention Nutrition Support: Jevity 1.2 at 80 ml/hr. Water flush of 150 mls q 4 hrs . Kcal 2,304 Protein (gm) 107 Fluid (mL) 1,549 Goal #1 TF tolerance Goal #2 Meet at least 75% of calorie and protein needs via TF Anticipated Discharge Needs: TF Follow-Up By: 10/04/18 Additional Comments Follow for new TF
[2018-10-02] MEDS: SODIUM CHLORIDE FLUSH SYRINGE 10 ML IV SCH (16:52)
[2018-10-02] MEDS: UNASYN/NS 3 GM/100 ML 3 GM/100 ML BAG IV SCH (19:20)
[2018-10-02] MEDS: DIFLUCAN 200 ML IV SCH (21:53)
[2018-10-02] MEDS: SODIUM CHLORIDE FLUSH SYRINGE 10 ML IV PRN ×2 (21:55→22:44)
[2018-10-03] MEDS: UNASYN/NS 3 GM/100 ML 3 GM/100 ML BAG IV SCH ×4 (02:12→18:23)
[2018-10-03] MEDS: SODIUM CHLORIDE FLUSH SYRINGE 10 ML IV SCH ×2 (02:13→11:03)
[2018-10-03] MEDS: SODIUM CHLORIDE FLUSH SYRINGE 10 ML IV PRN ×2 (05:36→05:55)
[2018-10-03] MEDS: MORPHINE IV PRN ×2 (05:53→11:04)
[2018-10-03 08:33] LABS: Hematocrit 33.4 % (35.5-45.6); Hemoglobin 11.4 gm/dl (11.8-15.2); Mean Corpuscular HGB Conc 34 % (32-34); Mean Corpuscular Volume 82 fl (84-94); Platelet Count 275 K/mm3 (140-440); Red Blood Count 4.08 M/mm3 (3.65-5.03); Red Cell Distribution Width 13.7 % (13.2-15.2)
[2018-10-03 08:50] LABS: Alanine Aminotransferase 10 units/L (7-56); Albumin 4.1 g/dL (3.9-5); BUN/Creatinine Ratio 10; Blood Urea Nitrogen 6 mg/dL (9-20); Calcium 8.8 mg/dL (8.4-10.2); Hemolysis Index 1
[2018-10-03 10:19] LABS: Basophils % (Manual) 0 % (0.0-1.8); Total Cells Counted 100
[2018-10-03 10:20] LABS: Platelet Estimate Consistent w Auto; Poikilocytosis Few; Target Cells Few
--- NOTE | 2018-10-03 10:53 | Progress Note ---
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 Findings on yesterday's CT do not appear that different from CT dated 08/07/2018. This is likely a chronic process. Antibiotics alone are not going to be curative. Patient will need evaluation by OMFS (Oromaxillofacial surgery), upon discharge, he should follow up with his physicians at [facility] [place]. For now, will start IV Unasyn, anticipate discharge on PO Augmentin / levofloxacin to cover oral sae. 2) Thyroid mass: per patient, this was needle biopsied 3 years ago and was reportedly non malignant. Follow up with ENT. 3) Hyponatremia: correction per IMS. 4) Oral thrush: fluconazole ordered. 5) Malnutrition 6) Left submandibular swelling and tenderness: ?acute on chronic. no stones seen on CT. Recs: continue IV Unasyn 3 gm q6 hrs continue Fluconazole IV 400 mg daily to cover for possible esophagitis Patient will need evaluation by OMFS (Oromaxillofacial surgery), upon discharge, he should follow up with his physicians at [facility], [place], anticipate discharge on PO Augmentin / levofloxacin to cover oral sae ESR CRP ordered Izzy Breaux NP [facility] M: [id number] O:[phone] Subjective Date of service: 10/03/18 Interval history: Patient seen an examined, Sitting up in the chair at the window. Reports no acute distress. No fevers Objective - Exam Narrative Exam: Constitutional: Alert, cooperative. No acute distress. Cachexia Head, Ears, Nose: Normocephalic, atraumatic. External ears, nose normal Eyes: Conjunctivae/corneas clear. No icterus. No ptosis. Neck: Right thyroid enlargement, left submandibular region is quite hard with severe tenderness Oral: dentition poor with missing and decayed teeth, thrush + of hard palate, unable to open mouth wide due to pain Cardiovascular: S1, S2 normal. Respiratory: Good air entry, clear to auscultation bilaterally GI: Soft, diffusely tender; bowel sounds normal. No peritoneal signs. G-tube + Musculoskeletal: No pedal edema, no cyanosis. Skin: No rash or abscess Hem/Lymphatic: No palpable cervical or supraclavicular nodes. No lymphangitis Psych: Mood ok. Affect normal Neurological: Awake, alert, oriented. No gross abnormality - Constitutional Vitals: Vital Signs Temp Pulse Resp BP Pulse Ox 97.8 F 98 H 20 113/80 99 10/03/18 04:51 10/03/18 04:51 10/03/18 04:51 10/03/18 04:51 10/03/18 04:51 Temperature -Last 24 Hours Temperature 97.8 F Temperature 98.2 F - Labs CBC & Chem 7: 10/03/18 07:29 10/03/18 07:29 Labs: Abnormal lab results 10/02/18 10/02/18 10/02/18 Range/Units 10:09 10:56 13:57 WBC (4.5-11.0) K/mm3 Hgb 11.6 L (11.8-15.2) gm/dl Hct 34.1 L 33.7 L (35.5-45.6) % MCV (84-94) fl Seg Neuts % (Manual) (40.0-70.0) % Lymphocytes % (Manual) (13.4-35.0) % Monocytes % (Manual) (0.0-7.3) % Eosinophils % (Manual) (0.0-4.3) % Seg Neutrophils # Man (1.8-7.7) K/mm3 Sodium 132 L (137-145) mmol/L Chloride 96.7 L (98-107) mmol/L Carbon Dioxide 18 L (22-30) mmol/L BUN 7 L (9-20) mg/dL Creatinine 0.7 L (0.8-1.5) mg/dL Glucose 155 H (75-100) mg/dL 10/02/18 10/03/18 10/03/18 Range/Units 13:57 07:29 07:29 WBC 3.2 L (4.5-11.0) K/mm3 Hgb 11.4 L (11.8-15.2) gm/dl Hct 33.4 L (35.5-45.6) % MCV 82 L (84-94) fl Seg Neuts % (Manual) 34.0 L (40.0-70.0) % Lymphocytes % (Manual) 38.0 H (13.4-35.0) % Monocytes % (Manual) 18.0 H (0.0-7.3) % Eosinophils % (Manual) 10.0 H (0.0-4.3) % Seg Neutrophils # Man 1.1 L (1.8-7.7) K/mm3 Sodium 130 L 134 L (137-145) mmol/L Chloride 97.4 L (98-107) mmol/L Carbon Dioxide 20 L (22-30) mmol/L BUN 7 L 6 L (9-20) mg/dL Creatinine 0.6 L 0.6 L (0.8-1.5) mg/dL Glucose 114 H (75-100) mg/dL
[2018-10-03] MEDS: DIFLUCAN 200 ML IV SCH (11:03)
[2018-10-03] MEDS: NEURONTIN PO SCH (14:20)
--- NOTE | 2018-10-03 15:05 | Progress Note ---
Assessment and Plan Assessment and plan: --Chronic maxillary and mandibular osteomyelitis; Continue current antibiotics, follow cultures, ID evaluation and recommendation noted and appreciated, patient needs to follow up with oromaxillary facial surgeon at [place] upon discharge --Hyponatremia; replacement therapy with normal saline Closely monitor electrolytes --Left submandibular swelling/inflammation versus infection; continue current antibiotics and supportive care --Moderate to severe Malnutrition/cachexia; nutrition supplements and to feeding --Metabolic acidosis; significant improvement Continue vigorous IV hydration --Status post PEG status; Tube feeds per protocol, PEG care --DC planning. Case management --DVT prophylaxis; Lovenox Monitor closely and adjust management as needed. Cardiology evaluation and recommendation noted appreciated. History Interval history: Patient seen and examined medical records reviewed Patient feels slightly better no new complaints Alert awake oriented 3., Not in acute distress Vital signs reviewed Hospitalist Physical - Constitutional Vitals: Temp Pulse Resp BP Pulse Ox 98.4 F 99 H 16 111/66 100 10/03/18 11:44 10/03/18 11:44 10/03/18 11:44 10/03/18 11:44 10/03/18 11:44 General appearance: Present: no acute distress, cachectic, disheveled - EENT Eyes: Present: PERRL, EOM intact - Neck Neck: Present: supple, normal ROM - Respiratory Respiratory effort: normal Respiratory: bilateral: diminished, negative: rales, rhonchi, wheezing - Cardiovascular Rhythm: regular Heart Sounds: Present: S1 & S2 - Extremities Extremities: no ischemia, No edema Peripheral Pulses: within normal limits - Abdominal General gastrointestinal: soft, non-tender, non-distended, normal bowel sounds - Integumentary Integumentary: Present: clear, warm - Psychiatric Psychiatric: appropriate mood/affect, cooperative - Neurologic Neurologic: CNII-XII intact, moves all extremities Results - Labs CBC & Chem 7: 10/03/18 07:29 10/03/18 07:29 Labs: Laboratory Last Values WBC 3.2 K/mm3 (4.5-11.0) L 10/03/18 07:29 RBC 4.08 M/mm3 (3.65-5.03) 10/03/18 07:29 Hgb 11.4 gm/dl (11.8-15.2) L 10/03/18 07:29 Hct 33.4 % (35.5-45.6) L 10/03/18 07:29 MCV 82 fl (84-94) L 10/03/18 07:29 MCH 28 pg (28-32) 10/03/18 07:29 MCHC 34 % (32-34) 10/03/18 07:29 RDW 13.7 % (13.2-15.2) 10/03/18 07:29 Plt Count 275 K/mm3 (140-440) 10/03/18 07:29 Lymph % (Auto) 27.4 % (13.4-35.0) 10/02/18 06:41 [place] % (Auto) Geodetic Surveyor 10/03/18 07:29 Eos % (Auto) 2.2 % (0.0-4.3) 10/02/18 06:41 Baso % (Auto) 0.4 % (0.0-1.8) 10/02/18 06:41 Lymph # 1.1 K/mm3 (1.2-5.4) L 10/02/18 06:41 [place]ander # 0.6 K/mm3 (0.0-0.8) 10/02/18 06:41 Eos # 0.1 K/mm3 (0.0-0.4) 10/02/18 06:41 Baso # 0.0 K/mm3 (0.0-0.1) 10/02/18 06:41 Add Manual Diff Complete 10/03/18 07:29 Total Counted 100 10/03/18 07:29 Seg Neutrophils % Geodetic Surveyor 10/03/18 07:29 Seg Neuts % (Manual) 34.0 % (40.0-70.0) L 10/03/18 07:29 Band Neutrophils % 0 % 10/03/18 07:29 Lymphocytes % (Manual) 38.0 % (13.4-35.0) H 10/03/18 07:29 Reactive Lymphs % (Man) 0 % 10/03/18 07:29 Monocytes % (Manual) 18.0 % (0.0-7.3) H 10/03/18 07:29 Eosinophils % (Manual) 10.0 % (0.0-4.3) H 10/03/18 07:29 Basophils % (Manual) 0 % (0.0-1.8) 10/03/18 07:29 Metamyelocytes % 0 % 10/03/18 07:29 Myelocytes % 0 % 10/03/18 07: Promyelocytes % 0 % 10/03/18 07: Blast Cells % 0 % 10/03/18 07:29 Nucleated RBC % Not Reportable 10/03/18 07:29 Seg Neutrophils # 2.4 K/mm3 (1.8-7.7) 10/02/18 06:41 Seg Neutrophils # Man 1.1 K/mm3 (1.8-7.7) L 10/03/18 07:29 Band Neutrophils # 0.0 K/mm3 10/03/18 07:29 Lymphocytes # (Manual) 1.2 K/mm3 (1.2-5.4) 10/03/18 07:29 Abs React Lymphs (Man) 0.0 K/mm3 10/03/18 07:29 Monocytes # (Manual) 0.6 K/mm3 (0.0-0.8) 10/03/18 07:29 Eosinophils # (Manual) 0.3 K/mm3 (0.0-0.4) 10/03/18 07:29 Basophils # (Manual) 0.0 K/mm3 (0.0-0.1) 10/03/18 07: Metamyelocytes # 0.0 K/mm3 10/03/18 07: Myelocytes # 0.0 K/mm3 10/03/18 07:29 Promyelocytes # 0.0 K/mm3 10/03/18 07:29 Blast Cells # 0.0 K/mm3 10/03/18 07:29 WBC Morphology Not Reportable 10/03/18 07:29 Hypersegmented Neuts Not Reportable 10/03/18 07:29 Hyposegmented Neuts Not Reportable 10/03/18 07:29 Hypogranular Neuts Not Reportable 10/03/18 07:29 Smudge Cells Not Reportable 10/03/18 07:29 Toxic Granulation Not Reportable 10/03/18 07:29 Toxic Vacuolation Not Reportable 10/03/18 07:29 Dohle Bodies Not Reportable 10/03/18 07:29 Pelger-Huet Anomaly Not Reportable 10/03/18 07:29 Brandin Rods Not Reportable 10/03/18 07:29 Platelet Estimate Consistent w auto 10/03/18 07:29 Clumped Platelets Not Reportable 10/03/18 07:29 Plt Clumps, EDTA Not Reportable 10/03/18 07:29 Large Platelets Not Reportable 10/03/18 07:29 Giant Platelets Not Reportable 10/03/18 07:29 Platelet Satelliting Not Reportable 10/03/18 07:29 Plt Morphology Comment Not Reportable 10/03/18 07:29 RBC Morphology Not Reportable 10/03/18 07:29 Dimorphic RBCs Not Reportable 10/03/18 07:29 Polychromasia Not Reportable 10/03/18 07:29 Hypochromasia Not Reportable 10/03/18 07:29 Poikilocytosis Few 10/03/18 07:29 Anisocytosis Not Reportable 10/03/18 07:29 Microcytosis Not Reportable 10/03/18 07:29 Macrocytosis Not Reportable 10/03/18 07:29 Spherocytes Not Reportable 10/03/18 07:29 Pappenheimer Bodies Not Reportable 10/03/18 07:29 Sickle Cells Not Reportable 10/03/18 07:29 Target Cells Few 10/03/18 07:29 Tear Drop Cells Not Reportable 10/03/18 07:29 Ovalocytes Not Reportable 10/03/18 07:29 Helmet Cells Not Reportable 10/03/18 07:29 Givens-Jeffers Bodies Not Reportable 10/03/18 07:29 [place] Rings Not Reportable 10/03/18 07:29 Jerome Cells Not Reportable 10/03/18 07:29 Bite Cells Not Reportable 10/03/18 07:29 Crenated Cell Not Reportable 10/03/18 07:29 Elliptocytes Not Reportable 10/03/18 07:29 Acanthocytes (Spur) Not Reportable 10/03/18 07:29 Rouleaux Not Reportable 10/03/18 07:29 Hemoglobin C Crystals Not Reportable 10/03/18 07:29 Schistocytes Not Reportable 10/03/18 07:29 Malaria parasites Not Reportable 10/03/18 07:29 Tony Bodies Not Reportable 10/03/18 07:29 Hem Pathologist Commnt No 10/03/18 07:29 Sodium 134 mmol/L (137-145) L 10/03/18 07:29 Potassium 4.0 mmol/L (3.6-5.0) 10/03/18 07:29 Chloride 99.6 mmol/L (98-107) 10/03/18 07:29 Carbon Dioxide 22 mmol/L (22-30) 10/03/18 07:29 Anion Gap 16 mmol/L 10/03/18 07:29 BUN 6 mg/dL (9-20) L 10/03/18 07:29 Creatinine 0.6 mg/dL (0.8-1.5) L 10/03/18 07:29 Estimated GFR > 60 ml/min 10/03/18 07:29 BUN/Creatinine Ratio 10 % 10/03/18 07:29 Glucose 91 mg/dL (75-100) 10/03/18 07:29 POC Glucose 85 (70-105) 10/02/18 06:50 Calcium 8.8 mg/dL (8.4-10.2) 10/03/18 07:29 Phosphorus 3.20 mg/dL (2.5-4.5) 10/03/18 07:29 Magnesium 2.20 mg/dL (1.7-2.3) 10/03/18 07:29 Total Bilirubin 0.50 mg/dL (0.1-1.2) 10/03/18 07:29 AST 22 units/L (5-40) 10/03/18 07:29 ALT 10 units/L (7-56) 10/03/18 07:29 Alkaline Phosphatase 73 units/L (35-129) 10/03/18 07:29 Total Protein 7.1 g/dL (6.3-8.2) 10/03/18 07:29 Albumin 4.1 g/dL (3.9-5) 10/03/18 07:29 Albumin/Globulin Ratio 1.4 % 10/03/18 07:29 Lipase 18 units/L (13-60) 10/01/18 21:03 Urine Color Colorless (Yellow) 10/01/18 23:00 Urine Turbidity Clear (Clear) 10/01/18 23:00 Urine pH 6.0 (5.0-7.0) 10/01/18 23:00 Ur Specific [place] 1.019 (1.003-1.030) 10/01/18 23:00 Urine Protein <15 mg/dl mg/dL (Negative) 10/01/18 23:00 Urine Glucose (UA) Neg mg/dL (Negative) 10/01/18 23:00 Urine Ketones 20 mg/dL (Negative) 10/01/18 23:00 Urine Blood Neg (Negative) 10/01/18 23:00 Urine Nitrite Neg (Negative) 10/01/18 23:00 Urine Bilirubin Neg (Negative) 10/01/18 23:00 Urine Urobilinogen < 2.0 mg/dL (<2.0) 10/01/18 23:00 Ur Leukocyte Esterase Neg (Negative) 10/01/18 23:00 Urine WBC (Auto) 1.0 /HPF (0.0-6.0) 10/01/18 23:00 Urine RBC (Auto) < 1.0 /HPF (0.0-6.0) 10/01/18 23:00 Active Medications - Current Medications Current Medications: Generic Name Dose Route Start Last Admin Trade Name Freq PRN Reason Stop Dose Admin Acetaminophen 650 mg 10/02/18 05:50 Tylenol PO Q4H PRN Pain MILD(1-3)/Fever >100.5/ENG Lipase/Protease/Amylase 1 each 10/02/18 15:[address] 10,500 Unit FEEDTUBE PRN PRN For Clogged Feeding Tube Gabapentin 100 mg 10/03/18 14:00 10/03/18 14:20 Neurontin PO 100 mg Q8HR DELISA Administration Sodium Chloride 1,000 mls @ 75 mls/hr 10/02/18 06:00 10/02/18 06:10 Nacl 0.9% 1000 Ml IV 75 mls/hr DIRECT DELISA Administration Ampicillin Sodium/Sulbactam Sodium 3 gm in 100 mls @ 200 mls/hr 10/02/18 18:00 10/03/18 13:08 Unasyn/Ns 3 Gm/100 Ml IV 200 mls/hr Q6HR DELISA Administration Protocol Fluconazole 200 mls @ 100 mls/hr 10/02/18 16:00 10/03/18 11:03 Diflucan IV 100 mls/hr Q24HR DELISA Administration Protocol Morphine Sulfate 2 mg 10/02/18 05:50 10/03/18 11:04 Morphine IV 2 mg Q4H PRN Administration Pain, Moderate (4-6) Ondansetron HCl 4 mg 10/02/18 05:50 10/02/18 22:41 Zofran IV 4 mg Q8H PRN Administration Nausea And Vomiting Simple Syrup 15 ml 10/02/18 15:58 Simple Syrup FEEDTUBE PRN PRN Hypoglycemia Simple Syrup 30 ml 10/02/18 15:58 Simple Syrup FEEDTUBE PRN PRN Hypoglycemia Sodium Bicarbonate 325 mg 10/02/18 15:58 Sodium Bicarbonate FEEDTUBE PRN PRN For Clogged Feeding Tube Sodium Chloride 10 ml 10/02/18 10:00 10/03/18 11:03 Sodium Chloride Flush Syringe 10 Ml IV 10 ml BID DELISA Administration Sodium Chloride 10 ml 10/02/18 05:50 10/03/18 05:55 Sodium Chloride Flush Syringe 10 Ml IV 10 ml PRN PRN Administration LINE FLUSH Nutrition/Malnutrition Assess - Dietary Evaluation Nutrition/Malnutrition Findings: Nutrition Notes Start: 10/02/18 10:27 Freq: Status: Active Protocol: Document 10/03/18 11:08 EB (Rec: 10/03/18 11:15 EB [id number]) Co-Sign 10/03/18 11:08 LP Nutrition Notes Need for Assessment generated from: MD Order Initial or Follow up Reassessment Other Pertinent Diagnosis NHL, G tube, Dysphagia Current Diet TF (Jevity 1.2 at 80 mL/hr) Labs/Tests Reviewed Pertinent Medications Reviewed Height 6 ft Weight 57.8 kg [place] Body Weight (kg) 80.90 BMI 17.2 Subjective/Other Information Consulted for TF recommendations again. Pt transferred from ED to . TF running at goal rate at time of visit. Pt concerned about living arrangements upon d/c and states he used to drink Ensure at home but does not have means to receive that any longer. Per RN, pt tolerating TF. Percent of energy/protein needs met: 100%/100% Burn Absent Trauma Absent Difficulty In Chewing #1 Nutrition Diagnosis Inadequate oral intake Diagnosis Progress(for reassessment Continues documentation) Is patient on ventilator? No Is Patient Ambulatory and/or Out of Bed No REE-([place]-confined to bed) 1775.304 Kcal/Kg value to use for calculation 38 Approximate Energy Requirements Using 2196 kcal/Kg Calculation Used for Recommendations Kcal/kg Additional Notes Protein Needs: 73-92g (1.2-1. 5g/kg) Fluid Needs: 1 ml/kcal Nutrition Intervention Nutrition Support: Jevity 1.2 at 80 ml/hr. Water flush of 150 mls q 4 hrs . Kcal 2,304 Protein (gm) 107 Fluid (mL) 1,549 Goal #1 TF tolerance Goal #2 Continue to meet at least 80% of eddie and pro needs via TF Anticipated Discharge Needs: TF Follow-Up By: 10/09/18 Additional Comments F/u: TF tolerance
[2018-10-04] MEDS: MORPHINE IV PRN ×4 (00:09→20:28)
[2018-10-04] MEDS: NEURONTIN PO SCH ×4 (00:09→21:45)
[2018-10-04] MEDS: SODIUM CHLORIDE FLUSH SYRINGE 10 ML IV SCH ×3 (00:14→21:45)
[2018-10-04] MEDS: UNASYN/NS 3 GM/100 ML 3 GM/100 ML BAG IV SCH ×4 (00:48→17:34)
[2018-10-04] MEDS: DIFLUCAN 200 ML IV SCH (10:06)
--- NOTE | 2018-10-04 10:37 | Progress Note ---
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 Findings on yesterday's CT do not appear that different from CT dated 08/07/2018. This is likely a chronic process. Antibiotics alone are not going to be curative. Patient will need evaluation by OMFS (Oromaxillofacial surgery), upon discharge, he should follow up with his physicians at [facility]. No acute findings, will treat for 2 weeks. CRP - 2.0 ESR - 30 2) Thyroid mass: per patient, this was needle biopsied 3 years ago and was reportedly non malignant. Follow up with ENT. 3) Hyponatremia: correction per IMS. 4) Oral thrush: fluconazole ordered. 5) Malnutrition 6) Left submandibular swelling and tenderness: ?acute on chronic. no stones seen on CT. Recs: OK to discharge tomorrow on PO Augmentin 875 mg BID and PO Fluconazole 400 mg daily x 2 weeks Patient will need evaluation by OMFS (Oromaxillofacial surgery) and follow up with his ENT physicians, he should follow up with his physicians at [facility] Will sign off. Please call with questions. D/W Dr. Niles Breaux, [employer]LECTRON[employer] MASKING SYSTEM OPERATOR [facility] M: [id number] O:[phone] Subjective Date of service: 10/04/18 Interval history: Patient seen an examined. reports consistent jaw pain. No fevers. Objective - Exam Narrative Exam: Constitutional: Alert, cooperative. No acute distress. Cachexia Head, Ears, Nose: Normocephalic, atraumatic. External ears, nose normal Eyes: Conjunctivae/corneas clear. No icterus. No ptosis. Neck: Right thyroid enlargement, left submandibular region is quite hard with severe tenderness Oral: dentition poor with missing and decayed teeth, thrush + of hard palate, unable to open mouth wide due to pain Cardiovascular: S1, S2 normal. Respiratory: Good air entry, clear to auscultation bilaterally GI: Soft, diffusely tender; bowel sounds normal. No peritoneal signs. G-tube + Musculoskeletal: No pedal edema, no cyanosis. Skin: No rash or abscess Hem/Lymphatic: No palpable cervical or supraclavicular nodes. No lymphangitis Psych: Mood ok. Affect normal Neurological: Awake, alert, oriented. No gross abnormality - Constitutional Vitals: Vital Signs Temp Pulse Resp BP Pulse Ox 98.0 F 78 20 94/63 98 10/04/18 05:29 10/04/18 05:29 10/04/18 05:29 10/04/18 05:29 10/04/18 10:17 Temperature -Last 24 Hours Temperature 98.0 F Temperature 98.3 F Temperature 98.2 F Temperature 98.4 F - Labs CBC & Chem 7: 10/03/18 07:29 10/03/18 07:29 Labs: Abnormal lab results 10/04/18 Range/Units 05:09 C-Reactive Protein 2.90 H (0.00-1.30) mg/dL
--- NOTE | 2018-10-04 19:30 | Progress Note ---
Assessment and Plan Assessment and plan: --Left submandibular swelling/inflammation versus infection; continue current antibiotics and supportive care --Chronic maxillary and mandibular osteomyelitis; on Diflucan and Unasyn, follow cultures, ID following Discharge on Augmentin and Diflucan for 2 weeks patient needs to follow up with oromaxillary facial surgeon at [facility] upon discharge --Hyponatremia; replacement therapy with normal saline Improving --Moderate to severe Malnutrition/cachexia; nutrition supplements and tube feeding --Metabolic acidosis; significant improvement Continue vigorous IV hydration --Status post PEG status; Tube feeds per protocol, PEG care Patient takes oral liquid diet intermittently --DC planning. Case management --DVT prophylaxis; Lovenox Monitor closely and adjust management as needed. Cardiology and ID cleared for discharge Patient reports that he is not feeling well today Possible discharge tomorrow if stable History Interval history: Patient seen and examined medical records reviewed Patient complains of generalized weakness Alert awake oriented vital signs noted Hospitalist Physical - Constitutional Vitals: Temp Pulse Resp BP Pulse Ox 98.0 F 86 20 162/95 97 10/04/18 16:49 10/04/18 16:49 10/04/18 16:49 10/04/18 16:49 10/04/18 16:49 General appearance: Present: no acute distress, cachectic, disheveled - EENT Eyes: Present: PERRL, EOM intact - Neck Neck: Present: supple, normal ROM - Respiratory Respiratory effort: normal Respiratory: bilateral: diminished, negative: rales, rhonchi, wheezing - Cardiovascular Rhythm: regular Heart Sounds: Present: S1 & S2 - Extremities Extremities: no ischemia, No edema - Abdominal General gastrointestinal: soft, non-tender, non-distended, normal bowel sounds, other (PEG in place) - Integumentary Integumentary: Present: clear, warm - Psychiatric Psychiatric: appropriate mood/affect, cooperative - Neurologic Neurologic: moves all extremities Results - Labs CBC & Chem 7: 10/03/18 07:29 10/03/18 07:29 Labs: Laboratory Last Values WBC 3.2 K/mm3 (4.5-11.0) L 10/03/18 07:29 RBC 4.08 M/mm3 (3.65-5.03) 10/03/18 07:29 Hgb 11.4 gm/dl (11.8-15.2) L 10/03/18 07:29 Hct 33.4 % (35.5-45.6) L 10/03/18 07:29 MCV 82 fl (84-94) L 10/03/18 07:29 MCH 28 pg (28-32) 10/03/18 07:29 MCHC 34 % (32-34) 10/03/18 07:29 RDW 13.7 % (13.2-15.2) 10/03/18 07:29 Plt Count 275 K/mm3 (140-440) 10/03/18 07:29 Lymph % (Auto) 27.4 % (13.4-35.0) 10/02/18 06:41 [place] % (Auto) [place] 10/03/18 07:29 Eos % (Auto) 2.2 % (0.0-4.3) 10/02/18 06:41 Baso % (Auto) 0.4 % (0.0-1.8) 10/02/18 06:41 Lymph # 1.1 K/mm3 (1.2-5.4) L 10/02/18 06:41 [place] # 0.6 K/mm3 (0.0-0.8) 10/02/18 06:41 Eos # 0.1 K/mm3 (0.0-0.4) 10/02/18 06:41 Baso # 0.0 K/mm3 (0.0-0.1) 10/02/18 06:41 Add Manual Diff Complete 10/03/18 07:29 Total Counted 100 10/03/18 07:29 Seg Neutrophils % [place] 10/03/18 07:29 Seg Neuts % (Manual) 34.0 % (40.0-70.0) L 10/03/18 07:29 Band Neutrophils % 0 % 10/03/18 07:29 Lymphocytes % (Manual) 38.0 % (13.4-35.0) H 10/03/18 07:29 Reactive Lymphs % (Man) 0 % 10/03/18 07:29 Monocytes % (Manual) 18.0 % (0.0-7.3) H 10/03/18 07:29 Eosinophils % (Manual) 10.0 % (0.0-4.3) H 10/03/18 07:29 Basophils % (Manual) 0 % (0.0-1.8) 10/03/18 07: Metamyelocytes % 0 % 10/03/18 07: Myelocytes % 0 % 10/03/18 07: Promyelocytes % 0 % 10/03/18 07: Blast Cells % 0 % 10/03/18 07:29 Nucleated RBC % Not Reportable 10/03/18 07:29 Seg Neutrophils # 2.4 K/mm3 (1.8-7.7) 10/02/18 06:41 Seg Neutrophils # Man 1.1 K/mm3 (1.8-7.7) L 10/03/18 07:29 Band Neutrophils # 0.0 K/mm3 10/03/18 07:29 Lymphocytes # (Manual) 1.2 K/mm3 (1.2-5.4) 10/03/18 07:29 Abs React Lymphs (Man) 0.0 K/mm3 10/03/18 07:29 Monocytes # (Manual) 0.6 K/mm3 (0.0-0.8) 10/03/18 07:29 Eosinophils # (Manual) 0.3 K/mm3 (0.0-0.4) 10/03/18 07:29 Basophils # (Manual) 0.0 K/mm3 (0.0-0.1) 10/03/18 07: Metamyelocytes # 0.0 K/mm3 10/03/18 07: Myelocytes # 0.0 K/mm3 10/03/18 07:29 Promyelocytes # 0.0 K/mm3 10/03/18 07:29 Blast Cells # 0.0 K/mm3 10/03/18 07:29 WBC Morphology Not Reportable 10/03/18 07:29 Hypersegmented Neuts Not Reportable 10/03/18 07:29 Hyposegmented Neuts Not Reportable 10/03/18 07:29 Hypogranular Neuts Not Reportable 10/03/18 07:29 Smudge Cells Not Reportable 10/03/18 07:29 Toxic Granulation Not Reportable 10/03/18 07:29 Toxic Vacuolation Not Reportable 10/03/18 07:29 Dohle Bodies Not Reportable 10/03/18 07:29 Pelger-Huet Anomaly Not Reportable 10/03/18 07:29 Brandin Rods Not Reportable 10/03/18 07:29 Platelet Estimate Consistent w auto 10/03/18 07:29 Clumped Platelets Not Reportable 10/03/18 07:29 Plt Clumps, EDTA Not Reportable 10/03/18 07:29 Large Platelets Not Reportable 10/03/18 07:29 Giant Platelets Not Reportable 10/03/18 07:29 Platelet Satelliting Not Reportable 10/03/18 07:29 Plt Morphology Comment Not Reportable 10/03/18 07:29 RBC Morphology Not Reportable 10/03/18 07:29 Dimorphic RBCs Not Reportable 10/03/18 07:29 Polychromasia Not Reportable 10/03/18 07:29 Hypochromasia Not Reportable 10/03/18 07:29 Poikilocytosis Few 10/03/18 07:29 Anisocytosis Not Reportable 10/03/18 07:29 Microcytosis Not Reportable 10/03/18 07:29 Macrocytosis Not Reportable 10/03/18 07:29 Spherocytes Not Reportable 10/03/18 07:29 Pappenheimer Bodies Not Reportable 10/03/18 07:29 Sickle Cells Not Reportable 10/03/18 07:29 Target Cells Few 10/03/18 07:29 Tear Drop Cells Not Reportable 10/03/18 07:29 Ovalocytes Not Reportable 10/03/18 07:29 Helmet Cells Not Reportable 10/03/18 07:29 [place] Bodies Not Reportable 10/03/18 07:29 [place] Rings Not Reportable 10/03/18 07:29 [place] Cells Not Reportable 10/03/18 07:29 Bite Cells Not Reportable 10/03/18 07:29 Crenated Cell Not Reportable 10/03/18 07:29 Elliptocytes Not Reportable 10/03/18 07:29 Acanthocytes (Spur) Not Reportable 10/03/18 07:29 Rouleaux Not Reportable 10/03/18 07:29 Hemoglobin C Crystals Not Reportable 10/03/18 07:29 Schistocytes Not Reportable 10/03/18 07:29 Malaria parasites Not Reportable 10/03/18 07:29 ESR 30 mm/Hr (0-20) 10/04/18 05:09 Tony Bodies Not Reportable 10/03/18 07:29 Hem Pathologist Commnt No 10/03/18 07:29 Sodium 134 mmol/L (137-145) L 10/03/18 07:29 Potassium 4.0 mmol/L (3.6-5.0) 10/03/18 07:29 Chloride 99.6 mmol/L (98-107) 10/03/18 07:29 Carbon Dioxide 22 mmol/L (22-30) 10/03/18 07:29 Anion Gap 16 mmol/L 10/03/18 07:29 BUN 6 mg/dL (9-20) L 10/03/18 07:29 Creatinine 0.6 mg/dL (0.8-1.5) L 10/03/18 07:29 Estimated GFR > 60 ml/min 10/03/18 07:29 BUN/Creatinine Ratio 10 % 10/03/18 07:29 Glucose 91 mg/dL (75-100) 10/03/18 07:29 POC Glucose 85 (70-105) 10/02/18 06:50 Calcium 8.8 mg/dL (8.4-10.2) 10/03/18 07:29 Phosphorus 3.20 mg/dL (2.5-4.5) 10/03/18 07:29 Magnesium 2.20 mg/dL (1.7-2.3) 10/03/18 07:29 Total Bilirubin 0.50 mg/dL (0.1-1.2) 10/03/18 07:29 AST 22 units/L (5-40) 10/03/18 07:29 ALT 10 units/L (7-56) 10/03/18 07:29 Alkaline Phosphatase 73 units/L (35-129) 10/03/18 07:29 C-Reactive Protein 2.90 mg/dL (0.00-1.30) H 10/04/18 05:09 Total Protein 7.1 g/dL (6.3-8.2) 10/03/18 07:29 Albumin 4.1 g/dL (3.9-5) 10/03/18 07:29 Albumin/Globulin Ratio 1.4 % 10/03/18 07:29 Lipase 18 units/L (13-60) 10/01/18 21:03 Urine Color Colorless (Yellow) 10/01/18 23:00 Urine Turbidity Clear (Clear) 10/01/18 23:00 Urine pH 6.0 (5.0-7.0) 10/01/18 23:00 Ur Specific [place] 1.019 (1.003-1.030) 10/01/18 23:00 Urine Protein <15 mg/dl mg/dL (Negative) 10/01/18 23:00 Urine Glucose (UA) Neg mg/dL (Negative) 10/01/18 23:00 Urine Ketones 20 mg/dL (Negative) 10/01/18 23:00 Urine Blood Neg (Negative) 10/01/18 23:00 Urine Nitrite Neg (Negative) 10/01/18 23:00 Urine Bilirubin Neg (Negative) 10/01/18 23:00 Urine Urobilinogen < 2.0 mg/dL (<2.0) 10/01/18 23:00 Ur Leukocyte Esterase Neg (Negative) 10/01/18 23:00 Urine WBC (Auto) 1.0 /HPF (0.0-6.0) 10/01/18 23:00 Urine RBC (Auto) < 1.0 /HPF (0.0-6.0) 10/01/18 23:00 Active Medications - Current Medications Current Medications: Generic Name Dose Route Start Last Admin Trade Name Freq PRN Reason Stop Dose Admin Acetaminophen 650 mg 10/02/18 05:50 Tylenol PO Q4H PRN Pain MILD(1-3)/Fever >100.5/ENG Lipase/Protease/Amylase 1 each 10/02/18 15:[address] 10,500 Unit FEEDTUBE PRN PRN For Clogged Feeding Tube Gabapentin 100 mg 10/03/18 14:00 10/04/18 14:08 Neurontin PO 100 mg Q8HR DELISA Administration Sodium Chloride 1,000 mls @ 75 mls/hr 10/02/18 06:00 10/02/18 06:10 Nacl 0.9% 1000 Ml IV 75 mls/hr DIRECT DELISA Administration Ampicillin Sodium/Sulbactam Sodium 3 gm in 100 mls @ 200 mls/hr 10/02/18 18:00 10/04/18 17:34 Unasyn/Ns 3 Gm/100 Ml IV 200 mls/hr Q6HR DELISA Administration Protocol Fluconazole 200 mls @ 100 mls/hr 10/02/18 16:00 10/04/18 10:06 Diflucan IV 100 mls/hr Q24HR DELISA Administration Protocol Morphine Sulfate 2 mg 10/02/18 05:50 10/04/18 14:09 Morphine IV 2 mg Q4H PRN Administration Pain, Moderate (4-6) Ondansetron HCl 4 mg 10/02/18 05:50 10/02/18 22:41 Zofran IV 4 mg Q8H PRN Administration Nausea And Vomiting Simple Syrup 15 ml 10/02/18 15:58 Simple Syrup FEEDTUBE PRN PRN Hypoglycemia Simple Syrup 30 ml 10/02/18 15:58 Simple Syrup FEEDTUBE PRN PRN Hypoglycemia Sodium Bicarbonate 325 mg 10/02/18 15:58 Sodium Bicarbonate FEEDTUBE PRN PRN For Clogged Feeding Tube Sodium Chloride 10 ml 10/02/18 10:00 10/04/18 10:06 Sodium Chloride Flush Syringe 10 Ml IV 10 ml BID DELISA Administration Sodium Chloride 10 ml 10/02/18 05:50 10/03/18 05:55 Sodium Chloride Flush Syringe 10 Ml IV 10 ml PRN PRN Administration LINE FLUSH Nutrition/Malnutrition Assess - Dietary Evaluation Nutrition/Malnutrition Findings: Nutrition Notes Start: 10/02/18 10:27 Freq: Status: Active Protocol: Document 10/03/18 11:08 EB (Rec: 10/03/18 11:15 EB [id number]) Co-Sign 10/03/18 11:08 LP Nutrition Notes Need for Assessment generated from: MD Order Initial or Follow up Reassessment Other Pertinent Diagnosis NHL, G tube, Dysphagia Current Diet TF (Jevity 1.2 at 80 mL/hr) Labs/Tests Reviewed Pertinent Medications Reviewed Height 6 ft Weight 57.8 kg [place] Body Weight (kg) 80.90 BMI 17.2 Subjective/Other Information Consulted for TF recommendations again. Pt transferred from ED to . TF running at goal rate at time of visit. Pt concerned about living arrangements upon d/c and states he used to drink Ensure at home but does not have means to receive that any longer. Per RN, pt tolerating TF. Percent of energy/protein needs met: 100%/100% Burn Absent Trauma Absent Difficulty In Chewing #1 Nutrition Diagnosis Inadequate oral intake Diagnosis Progress(for reassessment Continues documentation) Is patient on ventilator? No Is Patient Ambulatory and/or Out of Bed No REE-([facility]-confined to bed) 1775.304 Kcal/Kg value to use for calculation 38 Approximate Energy Requirements Using 2196 kcal/Kg Calculation Used for Recommendations Kcal/kg Additional Notes Protein Needs: 73-92g (1.2-1. 5g/kg) Fluid Needs: 1 ml/kcal Nutrition Intervention Nutrition Support: Jevity 1.2 at 80 ml/hr. Water flush of 150 mls q 4 hrs . Kcal 2,304 Protein (gm) 107 Fluid (mL) 1,549 Goal #1 TF tolerance Goal #2 Continue to meet at least 80% of eddie and pro needs via TF Anticipated Discharge Needs: TF Follow-Up By: 10/09/18 Additional Comments F/u: TF tolerance
[2018-10-05] MEDS: UNASYN/NS 3 GM/100 ML 3 GM/100 ML BAG IV SCH ×3 (01:17→13:03)
[2018-10-05] MEDS: NEURONTIN PO SCH ×2 (05:42→13:03)
[2018-10-05] MEDS: MORPHINE IV PRN (05:58)
[2018-10-05] MEDS: SODIUM CHLORIDE FLUSH SYRINGE 10 ML IV SCH (10:16)
[2018-10-05] MEDS: DIFLUCAN 200 ML IV SCH (10:17)
[2018-10-05 11:46] VITALS: BP 110/75
--- NOTE | 2018-10-05 11:59 | Discharge Summary ---
Providers - Providers Date of Admission: 10/02/18 02:25 Date of discharge: 10/05/18 Attending physician: ISSA BEJARANO 10/02/18 05:50 Consult to Physician [CONS] Routine Comment: Dr. Xiong spoke with Dr. Mireles @ [id number] Consulting Provider: MINA MIRELES Physician Instructions: Reason For Exam: possible osteo 10/02/18 06:02 Consult to Dietitian/Nutrition [CONS] Routine Physician Instructions: Assess nutrtn needs, initiate, modify, manage TF Reason For Exam: Reason for Consult: Write/Manage Tube Feeding Reason for Consult: Write/Manage Tube Feeding 10/02/18 15:58 Consult to Dietitian/Nutrition [CONS] Routine Physician Instructions: Assess nutrtn needs, initiate, modify, manage TF Reason For Exam: Reason for Consult: Write/Manage Tube Feeding Reason for Consult: Write/Manage Tube Feeding Primary care physician: NATURAL GAS [facility]HO[facility] DRILLER Hospitalization Reason for admission: left jaw swelling and pain Condition: Fair Pertinent studies: CT neck CT abdomen and pelvis Hospital course: 48-year-old male with 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 Also showed interval enlargement of the right thyroid mass. He reports recent CT scan done few days ago at [facility], follows up with ENT at [facility].. Patient was evaluated by ID, managed with IV antibiotics, received symptomatic and supportive care Symptoms significantly improved, today patient is comfortable, no new complaints Cleared by ID, for discharge on oral antibiotics An follow-up. Oromaxillary and facial surgeons at [facility] upon discharge. Patient is hemodynamically and clinically stable at discharge Management has evaluated the patient and assisted the discharge Discharge diagnosis; --Left submandibular swelling/inflammation versus infection; continue current antibiotics and supportive care --Chronic maxillary and mandibular osteomyelitis; on Diflucan and Unasyn, follow cultures, ID following Discharge on Augmentin and Diflucan for 2 weeks and follow up with oromaxillary facial surgeon at [facility] upon discharge --Hyponatremia; improved --Moderate to severe Malnutrition/cachexia; nutrition supplements and tube feeding --Metabolic acidosis; significant improvement Continue vigorous IV hydration --Status post PEG status; Tube feeds per protocol, PEG care Patient takes oral liquid diet intermittently --DC planning. Case management --DVT prophylaxis; Lovenox Disposition: DC/[place]-06 HOME UNDER HOME [facility] Time spent for discharge: 32 min Core Measure Documentation - Palliative Care Palliative Care/ Comfort Measures: Not Applicable - Core Measures Any of the following diagnoses?: none Exam - Constitutional Vitals: Temp Pulse Resp BP Pulse Ox 98.6 F 78 19 110/75 99 10/05/18 11:44 10/05/18 11:44 10/05/18 11:44 10/05/18 11:44 10/05/18 11:44 General appearance: Present: no acute distress, well-nourished - EENT Eyes: Present: PERRL, EOM intact - Neck Neck: Present: supple, normal ROM Plan Activity: advance as tolerated, fall precautions Diet: other (tube feeds per protocol) Additional Instructions: Patient need evaluation by OMFS (Oromaxillofacial surgery) at [facility]. and follow up with his ENT physicians, he should follow up with his physicians at [facility] [place] Follow up with: PRIMARY CARE, [Primary Care Provider] - 3-5 Days Prescriptions: Amoxicillin/K Clav Tab [Augmentin 875 mg] 1 tab PO Q12HR #28 tab Fluconazole [Diflucan TAB] 2 tab PO QDAY #28 tablet Gabapentin [Neurontin] 100 mg PO Q8HR #90 capsule
== END 2018-10-05 14:51 | disposition home health service (06) | DRG 157 ==
LOC: ED 18:04 → UNDOADMIN 23:56 → 3A 23:56 → IMCU 10-02 02:25 → 3A 10-02 17:33
PROVIDERS: ADMIT Internal Medicine; ATTEND Internal Medicine
DX: M27.2 Inflammatory conditions of jaws (principal); E43 Unspecified severe protein-calorie malnutrition; E87.1 Hypo-osmolality and hyponatremia; M86.9 Osteomyelitis, unspecified; B37.0 Candidal stomatitis; Z68.1 Body mass index [BMI] 19.9 or less, adult; E07.9 Disorder of thyroid, unspecified; E87.2 Acidosis; K05.10 Chronic gingivitis, plaque induced; F32.9 Major depressive disorder, single episode, unspecified; F17.200 Nicotine dependence, unspecified, uncomplicated; Z93.1 Gastrostomy status; Z82.49 Family history of ischemic heart disease and other diseases of the circulatory system; Z79.899 Other long term (current) drug therapy
CPT/HCPCS: 36415; 70491; 74177; 80048; 80053; 81001; 82962; 83690; 83735; 84100; 85007; 85014; 85018; 85025; 85652; 86140; 93005; 93010; G0378; J0295; J1450; J2270; J2405; J3010; J3370; J7030; Q9967

== ENCOUNTER 2018-12-18 17:27 | Inpatient (IN) | payer MEDICAID ==
[2018-12-18] MEDS ORDERED: NACL 0.9% 1000 ML 1,000 ML IV ONE ×2 (18:45→21:01)
[2018-12-18] MEDS ORDERED: SUBLIMAZE IV ONE ×2 (18:58→20:02)
[2018-12-18] MEDS ORDERED: PROTONIX IV ONE (18:58)
[2018-12-18] MEDS ORDERED: ZOFRAN IV ONE (18:58)
[2018-12-18 19:13] LABS: Bilirubin,Urine NEG (Negative); Blood,Urine NEG (Negative); Color,Urine Yellow (Yellow); Protein,Urine <15 mg/dL mg/dL (Negative); Urobilinogen,Urine < 2.0 mg/dL (<2.0)
--- NOTE | 2018-12-18 19:15 | Emergency Department Report ---
HPI - General Chief Complaint: Abdominal Pain Time Seen by Provider: 12/18/18 18:40 - HPI HPI: Room 23 The patient is a 48-year-old male presenting with chief complaint of "I'm dehydrated and vomiting blood." The patient states his symptoms began this morning with hematemesis and abdominal pain around his G-tube site. 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/ alcohol abuse/GT placed in August 2016 due to the cancer - Surgical History Past Surgical History?: Yes Additional Surgical History: BIOPSY, ESOPHAGUS SURGERY, decreased hearing, fe eding tube - Family History Family history: no significant - Social History Smoking Status: Current Every Day Smoker Substance Use Type: Alcohol - Medications Home Medications: Home Medications Medication Instructions Recorded Confirmed Last Taken Type Amoxicillin/K Clav Tab [Augmentin 1 tab PO Q12HR #28 tab 10/05/18 Unknown Rx 875 mg] Fluconazole [Diflucan TAB] 2 tab PO QDAY #28 tablet 10/05/18 Unknown Rx Gabapentin [Neurontin] 100 mg PO Q8HR #90 capsule 10/05/18 Unknown Rx Meclizine [Antivert] 25 mg PO TID PRN #20 tablet 10/15/18 Unknown Rx Ondansetron [Zofran ODT TAB] 8 mg PO Q8HR #20 tab.rapdis 10/15/18 Unknown Rx ED Review of Systems ROS: Stated complaint: VOMITING BLOOD Other details as noted in HPI Constitutional: no symptoms reported Eyes: denies: eye pain ENT: other Respiratory: no symptoms reported Cardiovascular: denies: chest pain Endocrine: no symptoms reported Gastrointestinal: abdominal pain, nausea, vomiting, hematemesis, melena (?) Genitourinary: denies: dysuria Musculoskeletal: denies: back pain Neurological: denies: headache Physical Exam - Physical Exam Vital Signs: Vital Signs 12/18/18 18:20 Temperature 98.6 F Pulse Rate 113 H Respiratory 22 Rate Blood Pressure 161/94 O2 Sat by Pulse 99 Oximetry Physical Exam: GENERAL: The patient is well-developed well-nourished male lying on stretcher not appearing to be in acute distress. [] HEENT: Normocephalic. Atraumatic. Extraocular motions are intact. Patient has moist mucous membranes. NECK: Supple. Trachea midline CHEST/LUNGS: Clear to auscultation. There is no respiratory distress noted. HEART/CARDIOVASCULAR: Regular. There is no tachycardia. There is no gallop rub or murmur. ABDOMEN: Abdomen is soft, with midepigastric tenderness to palpation. Patient has normal bowel sounds. There is no abdominal distention. SKIN: There is no rash. There is no edema. There is no diaphoresis. NEURO: The patient is awake, alert, and oriented. The patient is cooperative. The patient has normal speech MUSCULOSKELETAL: There is no evidence of acute injury. RECTAL: Guaiac negative brown stool ED Course Vital Signs 12/18/18 18:20 Temperature 98.6 F Pulse Rate 113 H Respiratory 22 Rate Blood Pressure 161/94 O2 Sat by Pulse 99 Oximetry ED Medical Decision Making - Lab Data Result diagrams: 12/18/18 19:25 12/18/18 19:25 Laboratory Tests 12/18/18 12/18/18 12/18/18 18:49 19:25 19:25 WBC 4.6 RBC 4.45 Hgb 12.4 Hct 36.6 MCV 82 L MCH 28 MCHC 34 RDW 14.1 Plt Count 323 Lymph % (Auto) 18.9 [place] % (Auto) 8.4 H Eos % (Auto) 1.2 Baso % (Auto) 0.3 Lymph # 0.9 L [place] # 0.4 Eos # 0.1 Baso # 0.0 Seg Neutrophils % 71.2 H Seg Neutrophils # 3.3 PT 14.2 INR 1.13 APTT 36.5 Sodium Potassium Chloride Carbon Dioxide Anion Gap BUN Creatinine Estimated GFR BUN/Creatinine Ratio Glucose Calcium Total Bilirubin AST ALT Alkaline Phosphatase Total Protein Albumin Albumin/Globulin Ratio Lipase Urine Color Yellow Urine Turbidity Clear Urine pH 5.0 Ur Specific [place] 1.017 Urine Protein <15 mg/dl Urine Glucose (UA) Neg Urine Ketones 80 Urine Blood Neg Urine Nitrite Neg Urine Bilirubin Neg Urine Urobilinogen < 2.0 Ur Leukocyte Esterase Neg Urine WBC (Auto) < 1.0 Urine RBC (Auto) 1.0 06/25/19 19:25 WBC RBC Hgb Hct MCV MCH MCHC RDW Plt Count Lymph % (Auto) [place] % (Auto) Eos % (Auto) Baso % (Auto) Lymph # [place] # Eos # Baso # Seg Neutrophils % Seg Neutrophils # PT INR APTT Sodium 124 L Potassium 4.9 Chloride 86.6 L Carbon Dioxide 17 L Anion Gap 25 BUN 10 Creatinine 0.7 L Estimated GFR > 60 BUN/Creatinine Ratio 14 Glucose 64 L Calcium 9.0 Total Bilirubin 0.50 AST 28 ALT 13 Alkaline Phosphatase 84 Total Protein 8.5 H Albumin 5.1 H Albumin/Globulin Ratio 1.5 Lipase 18 Urine Color Urine Turbidity Urine pH Ur Specific [place] Urine Protein Urine Glucose (UA) Urine Ketones Urine Blood Urine Nitrite Urine Bilirubin Urine Urobilinogen Ur Leukocyte Esterase Urine WBC (Auto) Urine RBC (Auto) - Differential Diagnosis GI bleed, gastritis Critical care attestation.: If time is entered above; I have spent that time in minutes in the direct care of this critically ill patient, excluding procedure time. ED Disposition Clinical Impression: Hyponatremia, Nausea and vomiting Disposition: DC-09 OP ADMIT IP TO THIS HOSP Is pt being admited?: Yes Does the pt Need Aspirin: No Condition: Fair Time of Disposition: 21:02 (hospitalist paged)
[2018-12-18 19:16] LABS: WBC,Urine < 1.0 /HPF (0.0-6.0)
[2018-12-18] MEDS ORDERED: BENADRYL IV ONE (20:02)
[2018-12-18 20:08] LABS: Basophils % (Auto) 0.3 % (0.0-1.8); Eosinophils # (Auto) 0.1 K/mm3 (0.0-0.4); Eosinophils % (Auto) 1.2 % (0.0-4.3); Hematocrit 36.6 % (35.5-45.6); Hemoglobin 12.4 gm/dl (11.8-15.2); Lymphocytes # (Auto) 0.9 K/mm3 (1.2-5.4); Lymphocytes % (Auto) 18.9 % (13.4-35.0); Mean Corpuscular HGB Conc 34 % (32-34); Mean Corpuscular Volume 82 fl (84-94); Monocytes # (Auto) 0.4 K/mm3 (0.0-0.8); Monocytes % (Auto) 8.4 % (0.0-7.3); Platelet Count 323 K/mm3 (140-440); Red Blood Count 4.45 M/mm3 (3.65-5.03); Red Cell Distribution Width 14.1 % (13.2-15.2)
[2018-12-18 20:30] LABS: INR 1.13 (0.87-1.13)
[2018-12-18 20:31] LABS: Partial Thromboplastin Time 36.5 Sec. (24.2-36.6)
[2018-12-18 20:33] LABS: Alanine Aminotransferase 13 units/L (7-56); Albumin 5.1 g/dL (3.9-5); BUN/Creatinine Ratio 14; Blood Urea Nitrogen 10 mg/dL (9-20); Hemolysis Index 18
[2018-12-18] MEDS ORDERED: TYLENOL PO PRN (21:41)
[2018-12-18] MEDS ORDERED: SODIUM CHLORIDE FLUSH SYRINGE 10 ML IV PRN (21:41)
[2018-12-18] MEDS ORDERED: ZOFRAN IV PRN (21:41)
[2018-12-18] MEDS ORDERED: MILK OF MAGNESIA PO PRN (21:41)
--- NOTE | 2018-12-18 21:45 | History and Physical Report ---
<THIAGO IVEY - Last Filed: 12/18/18 23:37> History of Present Illness Date of examination: 12/18/18 Date of admission: 12/17/2018 Chief complaint: Throat pain, hematemesis 1 day History of present illness: Patient is a 48 male withx PMH of non-Hodgkin's lymphoma, thyroid mass, esophageal perforation and dysphagia who presents to the ER with complaints of coughing of blood, throat pain and difficulty swallowing. Patient states that he has a history of esophageal perforation (diagnosed at [facility]), he supposed to have surgery tomorrow at [facility]. Patient states that his symptoms got worse, he is unable to tolerate any solid food, he reports coughing of blood, he denies any abdominal pain, denies nausea or vomiting, denied diarrhea denies fever or chills. Patient states that he lost a lot of weight in the past few weeks due to anorexia, he decided to come to the ER for evaluation. In the ER patient's guaiac stool was negative she, his H&H is stable (12.4, 36.6), sodium was 124, chloride was 86.6, he is admitted for hyponatremia and to monitor blood loss. Past History Past Medical History: No medical history, cancer Past Surgical History: No surgical history Social history: no significant social history Medications and Allergies Allergies Allergy/AdvReac Type Severity Reaction Status Date / Time No Known Allergies Allergy Verified 12/18/18 18:25 Home Medications Medication Instructions Recorded Confirmed Last Taken Type Fluconazole [Diflucan TAB] 2 tab PO QDAY #28 tablet 10/05/18 12/18/18 12/16/18 Rx Gabapentin [Neurontin] 100 mg PO Q8HR #90 capsule 10/05/18 12/18/18 12/16/18 Rx Meclizine [Antivert] 25 mg PO TID PRN #20 tablet 10/15/18 12/18/18 12/16/18 Rx Ondansetron [Zofran ODT TAB] 8 mg PO Q8HR #20 tab.rapdis 10/15/18 12/18/18 12/16/18 Rx Active Meds: Active Medications Sodium Chloride (Nacl 0.9% 1000 Ml) 1,000 mls @ 250 mls/hr IV ONCE ONE Stop: 12/19/18 01:00 Review of Systems Constitutional: weight loss, anorexia, poor appetite Ears, nose, mouth and throat: dysphagia Respiratory: cough Exam - Constitutional Vitals: Temp Pulse Resp BP Pulse Ox 98.6 F 98 H 14 162/92 99 12/18/18 18:20 12/18/18 19:08 12/18/18 19:08 12/18/18 19:08 12/18/18 19:08 General appearance: Present: no acute distress, cachectic - EENT Eyes: Present: EOM intact ENT: hearing intact, other (dental disease) - Neck Neck: Present: enlarged thyroid (thyroid mass) - Respiratory Respiratory effort: normal Respiratory: bilateral: CTA - Cardiovascular Rhythm: regular Heart Sounds: Present: S1 & S2 - Extremities Extremities: no ischemia, No edema Peripheral Pulses: within normal limits - Abdominal General gastrointestinal: Present: non-tender, non-distended Male genitourinary: Present: deferred - Rectal Rectal Exam: deferred - Integumentary Integumentary: Present: warm, dry - Musculoskeletal Musculoskeletal: strength equal bilaterally - Psychiatric Psychiatric: appropriate mood/affect, cooperative - Neurologic Neurologic: moves all extremities Results - Labs CBC & Chem 7: 12/18/18 19:25 12/18/18 19:25 Labs: Laboratory Last Values WBC 4.6 K/mm3 (4.5-11.0) 12/18/18 19:25 RBC 4.45 M/mm3 (3.65-5.03) 12/18/18 19:25 Hgb 12.4 gm/dl (11.8-15.2) 12/18/18 19:25 Hct 36.6 % (35.5-45.6) 12/18/18 19:25 MCV 82 fl (84-94) L 12/18/18 19:25 MCH 28 pg (28-32) 12/18/18 19:25 MCHC 34 % (32-34) 12/18/18 19:25 RDW 14.1 % (13.2-15.2) 12/18/18 19:25 Plt Count 323 K/mm3 (140-440) 12/18/18 19:25 Lymph % (Auto) 18.9 % (13.4-35.0) 12/18/18 19:25 [place] % (Auto) 8.4 % (0.0-7.3) H 06/25/19 19:25 Eos % (Auto) 1.2 % (0.0-4.3) 12/18/18 19:25 Baso % (Auto) 0.3 % (0.0-1.8) 12/18/18 19:25 Lymph # 0.9 K/mm3 (1.2-5.4) L 12/18/18 19:25 [place] # 0.4 K/mm3 (0.0-0.8) 12/18/18 19:25 Eos # 0.1 K/mm3 (0.0-0.4) 12/18/18 19:25 Baso # 0.0 K/mm3 (0.0-0.1) 12/18/18 19:25 Seg Neutrophils % 71.2 % (40.0-70.0) H 12/18/18 19:25 Seg Neutrophils # 3.3 K/mm3 (1.8-7.7) 12/18/18 19:25 PT 14.2 Sec. (12.2-14.9) 12/18/18 19:25 INR 1.13 (0.87-1.13) 12/18/18 19:25 APTT 36.5 Sec. (24.2-36.6) 12/18/18 19:25 Sodium 124 mmol/L (137-145) L 12/18/18 19:25 Potassium 4.9 mmol/L (3.6-5.0) 12/18/18 19:25 Chloride 86.6 mmol/L (98-107) L 12/18/18 19:25 Carbon Dioxide 17 mmol/L (22-30) L 12/18/18 19:25 25 mmol/L 12/18/18 19:25 BUN 10 mg/dL (9-20) 12/18/18 19:25 0.7 mg/dL (0.8-1.5) L 12/18/18 19:25 Estimated GFR > 60 ml/min 12/18/18 19:25 14 % 12/18/18 19:25 Glucose 64 mg/dL (75-100) L 12/18/18 19:25 Calcium 9.0 mg/dL (8.4-10.2) 12/18/18 19:25 0.50 mg/dL (0.1-1.2) 12/18/18 19:25 AST 28 units/L (5-40) 12/18/18 19:25 ALT 13 units/L (7-56) 12/18/18 19:25 84 units/L (35-129) 12/18/18 19:25 8.5 g/dL (6.3-8.2) H 12/18/18 19:25 5.1 g/dL (3.9-5) H 12/18/18 19:25 1.5 % 12/18/18 19:25 18 units/L (13-60) 12/18/18 19:25 Yellow (Yellow) 12/18/18 18:49 Clear (Clear) 12/18/18 18:49 5.0 (5.0-7.0) 12/18/18 18:49 Ur Specific [place] 1.017 (1.003-1.030) 12/18/18 18:49 <15 mg/dl mg/dL (Negative) 12/18/18 18:49 Neg mg/dL (Negative) 12/18/18 18:49 80 mg/dL (Negative) 12/18/18 18:49 Neg (Negative) 12/18/18 18:49 Neg (Negative) 12/18/18 18:49 Neg (Negative) 12/18/18 18:49 < 2.0 mg/dL (<2.0) 12/18/18 18:49 Ur Leukocyte Esterase Neg (Negative) 12/18/18 18:49 < 1.0 /HPF (0.0-6.0) 12/18/18 18:49 1.0 /HPF (0.0-6.0) 12/18/18 18:49 Blood Type O POSITIVE 12/18/18 19:25 Antibody Screen Negative 12/18/18 19:25 Assessment and Plan Assessment and plan: 1. Hematemesis (likely from esophageal perforation) 2. Thyroid mass status post resection 3. Esophageal perforation 4. Dysphagia 5. Anorexia (due to abnormal) 6. History of non-Hodgkin's lymphoma and childhood/status post radiation 7. Hyponatremia 8. Dehydration Plan: Patient is admitted for hyponatremia IV fluid for hydration Ensure 3 times a day with meals Monitor for Aspiration Resume home meds Protonix twice a day daily Patient may need to be transferred to [place] for evaluation for bleeding Advance Directives: Yes (hematemesis) Contraindication Mechanical VTE Prophylaxis: Contraindicated Plan of care discussed with patient/family: Yes <MALIK LEPE - Last Filed: 12/19/18 03:04> History of Present Illness Date of admission: 12/18/18 21:41 Medications and Allergies Active Meds: Active Medications Acetaminophen (Tylenol) 650 mg PO Q4H PRN PRN Reason: Pain MILD(1-3)/Fever >100.5/ENG Famotidine (Pepcid) 20 mg IV BID [facility] Sodium Chloride (Nacl 0.9% 1000 Ml) 1,000 mls @ 250 mls/hr IV ONCE ONE Stop: 12/19/18 01:00 Sodium Chloride (Nacl 0.9% 1000 Ml) 1,000 mls @ 125 mls/hr IV DIRECT [facility] Last Admin: 12/18/18 23:59 Dose: 125 mls/hr Documented by: Magnesium Hydroxide (Milk Of Magnesia) 30 ml PO Q4H PRN PRN Reason: Constipation Metoclopramide HCl (Reglan) 10 mg IV Q6HR [facility] Morphine Sulfate (Morphine) 4 mg IV Q4H PRN PRN Reason: Pain , Severe (7-10) Ondansetron HCl (Zofran) 4 mg IV Q8H PRN PRN Reason: Nausea And Vomiting Last Admin: 12/18/18 23:59 Dose: 4 mg Documented by: Sodium Chloride (Sodium Chloride Flush Syringe 10 Ml) 10 ml IV BID [facility] Last Admin: 12/19/18 00:00 Dose: 10 ml Documented by: Sodium Chloride (Sodium Chloride Flush Syringe 10 Ml) 10 ml IV PRN PRN PRN Reason: LINE FLUSH Exam - Constitutional Vitals: Temp Pulse Resp BP Pulse Ox 98.1 F 101 H 18 141/85 100 12/18/18 23:48 12/18/18 23:48 12/18/18 23:48 12/18/18 23:48 12/18/18 23:48 Results - Labs CBC & Chem 7: 12/18/18 19:25 12/18/18 19:25 Labs: Laboratory Last Values WBC 4.6 K/mm3 (4.5-11.0) 12/18/18 19:25 RBC 4.45 M/mm3 (3.65-5.03) 12/18/18 19:25 Hgb 12.4 gm/dl (11.8-15.2) 12/18/18 19:25 Hct 36.6 % (35.5-45.6) 12/18/18 19:25 MCV 82 fl (84-94) L 12/18/18 19:25 MCH 28 pg (28-32) 12/18/18 19: MCHC 34 % (32-34) 12/18/18 19:25 RDW 14.1 % (13.2-15.2) 12/18/18 19:25 Plt Count 323 K/mm3 (140-440) 12/18/18 19: Lymph % (Auto) 18.9 % (13.4-35.0) 12/18/18: [place] % (Auto) 8.4 % (0.0-7.3) H 12/18/18 19:25 Eos % (Auto) 1.2 % (0.0-4.3) 12/18/18: Baso % (Auto) 0.3 % (0.0-1.8) 12/18/18: Lymph # 0.9 K/mm3 (1.2-5.4) L 12/18/18: [place] # 0.4 K/mm3 (0.0-0.8) 12/18/18 19: Eos # 0.1 K/mm3 (0.0-0.4) 12/18/18: Baso # 0.0 K/mm3 (0.0-0.1) 12/18/18: Seg Neutrophils % 71.2 % (40.0-70.0) H 12/18/18 19: Seg Neutrophils # 3.3 K/mm3 (1.8-7.7) 12/18/18 19:25 PT 14.2 Sec. (12.2-14.9) 12/18/18: INR 1.13 (0.87-1.13) 12/18/18 19:25 APTT 36.5 Sec. (24.2-36.6) 12/18/18 19:25 Sodium 124 mmol/L (137-145) L 12/18/18 19:25 Potassium 4.9 mmol/L (3.6-5.0) 12/18/18 19:25 Chloride 86.6 mmol/L (98-107) L 12/18/18 19:25 Carbon Dioxide 17 mmol/L (22-30) L 12/18/18 19:25 25 mmol/L 12/18/18 19:25 BUN 10 mg/dL (9-20) 12/18/18 19:25 0.7 mg/dL (0.8-1.5) L 12/18/18 19:25 Estimated GFR > 60 ml/min 12/18/18 19:25 14 % 12/18/18 19:25 Glucose 64 mg/dL (75-100) L 12/18/18 19:25 Calcium 9.0 mg/dL (8.4-10.2) 12/18/18 19:25 0.50 mg/dL (0.1-1.2) 12/18/18 19:25 AST 28 units/L (5-40) 12/18/18 19:25 ALT 13 units/L (7-56) 12/18/18 19:25 84 units/L (35-129) 12/18/18 19:25 8.5 g/dL (6.3-8.2) H 12/18/18 19:25 5.1 g/dL (3.9-5) H 12/18/18 19:25 1.5 % 12/18/18 19:25 18 units/L (13-60) 12/18/18 19:25 Yellow (Yellow) 12/18/18 18:49 Clear (Clear) 12/18/18 18:49 5.0 (5.0-7.0) 12/18/18 18:49 Ur Specific [place] 1.017 (1.003-1.030) 12/18/18 18:49 <15 mg/dl mg/dL (Negative) 12/18/18 18:49 Neg mg/dL (Negative) 12/18/18 18:49 80 mg/dL (Negative) 12/18/18 18:49 Neg (Negative) 12/18/18 18:49 Neg (Negative) 12/18/18 18:49 Neg (Negative) 12/18/18 18:49 < 2.0 mg/dL (<2.0) 12/18/18 18:49 Ur Leukocyte Esterase Neg (Negative) 12/18/18 18:49 < 1.0 /HPF (0.0-6.0) 12/18/18 18:49 1.0 /HPF (0.0-6.0) 12/18/18 18:49 Blood Type O POSITIVE 12/18/18 19:25 Antibody Screen Negative 12/18/18 19:25 Assessment and Plan Assessment and plan: 48-year-old man with a history of NHL as a child, status post radiation, thyroid mass emergency room because he started spitting up blood since yesterday, none noted in the ER, also complain of black stoo and abdominal pain. Stool is heme-negative, brown, labs significant for hyponatremia, hemoglobin stable. Check CAT scan of the abdomen, consult GI, agree with a IV fluids. Patient seen and examined, discussed with nurse practitioner. Patient seen and examined, discussed with nurse practitioner
[2018-12-18] MEDS: NACL 0.9% 1000 ML 1,000 ML IV SCH (23:59)
--- NOTE | 2018-12-19 00:08 | Cat Scan Report ---
PROCEDURE: CT ABDOMEN PELVIS WO CON TECHNIQUE: Computerized axial tomography of the abdomen and pelvis was performed without intravenous contrast. This study is performed without intravascular contrast material and its sensitivity for ab dominal and pelvic pathology, including neoplasms, inflammation, abscess, free fluid, thrombosis, art erial dissection and infarction, is reduced compared with a contrast enhanced study. CT DOSE LENGTH PRODUCT: 302.7 mGycm HISTORY: abd pain COMPARISONS: None . FINDINGS: Lower Lung collins: No focal abnormalities seen. Upper Abdomen: Percutaneous gastrostomy tube in place. The inflated balloon appears to be located in the lumen of the stomach which is otherwise unremarkable. Calcified granuloma is seen in the liver w hich is otherwise unremarkable. Gallbladder appears grossly unremarkable. There appears to be some be am hardening artifact overlying the gallbladder. The adrenal glands, the pancreas and spleen show no abnormalities. Kidneys, Ureters and Urinary bladder: No abnormalities are seen. Calcifications are visualized in th e lower pelvis appear to represent phleboliths. Retroperitoneum: Abdominal aorta appears normal. Nonspecific subcentimeter lymph nodes are seen in the retroperitoneum. No pathologically enlarged ly mph nodes are identified. Bowel: No abnormalities are seen. No evidence of bowel obstruction ascites or free intraperitoneal g as. Normal-appearing appendix is seen in the right lower quadrant. Reproductive organs: Prostate gland does not appear to be significantly enlarged. Other: No acute bone abnormalities are identified. IMPRESSION: Percutaneous gastrostomy tube in place. No acute abnormalities are identified. This document is electronically signed by Sukh Iniguez MD., December 19 2018 12:05:57 AM ET
[2018-12-19] MEDS ORDERED: MORPHINE IV PRN (00:33)
[2018-12-19] MEDS: REGLAN IV SCH ×4 (00:44→19:52)
[2018-12-19] MEDS ORDERED: ANTIVERT PO PRN (04:16)
[2018-12-19] MEDS: NEURONTIN PO SCH ×2 (05:49→14:53)
[2018-12-19] MEDS: ZOFRAN ODT PO SCH ×2 (05:49→15:05)
[2018-12-19] MEDS: MORPHINE IV PRN ×3 (05:50→18:23)
[2018-12-19 05:56] LABS: Hematocrit 35.9 % (35.5-45.6); Hemoglobin 12.2 gm/dl (11.8-15.2)
[2018-12-19] MEDS: NACL 0.9% 1000 ML 1,000 ML IV SCH (09:54)
[2018-12-19] MEDS: SODIUM CHLORIDE FLUSH SYRINGE 10 ML IV SCH ×2 (09:54)
[2018-12-19] MEDS ORDERED: PEPCID IV SCH (10:00)
[2018-12-19 10:19] LABS: BUN/Creatinine Ratio 11; Blood Urea Nitrogen 9 mg/dL (9-20); Calcium 8.7 mg/dL (8.4-10.2); Hemolysis Index 21
--- NOTE | 2018-12-19 11:07 | Gastroenterology Consultation ---
History of Present Illness - Reason for Consult Consult date: 12/19/18 black stool Requesting physician: MALIK LEPE - History of Present Illness Patient is a 48 y/o male with PMH of Non-Hodgkin's lymphoma (s/p resection/radiation with dysphagia; s/p PEG; followed by [facility]), malnutrition, thyroid gland mass, chronic maxillary and mandibular osteomyelitis, and UGIB who presented to ED with c/o coughing/vomiting up blood, throat pain, difficulty swallowing/inability to tolerate PO, and dark stool ("almost black") to which GI has been consulted. Patient is previously known to our service with last consult on 08/07/18 for similar symptoms with etiology t hought to be 2/2 oropharyngeal lesions c/w radiation after undergoing an EGD. This morning patient was resting in bed w/o acute distress. He reports continued intermittent spitting up/vomiting bright red blood with last episode this am (a scant amount of old bloody oral secretions noted in bedside emesis bag). State he had a BM last Monday with dark stool (unsure if dark brown or black). No hematochezia. Upon exam, abdomen benign, PEG site w/o s/s of infection or bleeding and residual non-bloody. Rectal negative for blood or melena. Past History Past Medical History: other (as per HPI) Past Surgical History: Other (cervical, PEG) Social history: smoking, other (H/o ETOH) Family history: hypertension Medications and Allergies Allergies Allergy/AdvReac Type Severity Reaction Status Date / Time No Known Allergies Allergy Verified 12/18/18 18:25 Home Medications Medication Instructions Recorded Confirmed Last Taken Type Fluconazole [Diflucan TAB] 2 tab PO QDAY #28 tablet 10/05/18 12/18/18 12/16/18 Rx Gabapentin [Neurontin] 100 mg PO Q8HR #90 capsule 10/05/18 12/18/18 12/16/18 Rx Meclizine [Antivert] 25 mg PO TID PRN #20 tablet 10/15/18 12/18/18 12/16/18 Rx Ondansetron [Zofran ODT TAB] 8 mg PO Q8HR #20 tab.rapdis 10/15/18 12/18/18 12/16/18 Rx Active Meds: Active Medications Acetaminophen (Tylenol) 650 mg PO Q4H PRN PRN Reason: Pain MILD(1-3)/Fever >100.5/ENG Famotidine (Pepcid) 20 mg IV BID [facility] Last Admin: 12/19/18 09:54 Dose: 20 mg Documented by: Gabapentin (Neurontin) 100 mg PO Q8HR [facility] Last Admin: 12/19/18 05:49 Dose: 100 mg Documented by: Sodium Chloride (Nacl 0.9% 1000 Ml) 1,000 mls @ 125 mls/hr IV DIRECT [facility] Last Admin: 12/19/18 09:54 Dose: 125 mls/hr Documented by: Magnesium Hydroxide (Milk Of Magnesia) 30 ml PO Q4H PRN PRN Reason: Constipation Meclizine HCl (Antivert) 25 mg PO TID PRN PRN Reason: Vertigo Metoclopramide HCl (Reglan) 10 mg IV Q6HR [facility] Last Admin: 12/19/18 05:49 Dose: 10 mg Documented by: Morphine Sulfate (Morphine) 2 mg IV Q4H PRN PRN Reason: Pain , Severe (7-10) Last Admin: 12/19/18 05:50 Dose: 2 mg Documented by: Ondansetron HCl (Zofran) 4 mg IV Q8H PRN PRN Reason: Nausea And Vomiting Last Admin: 12/18/18 23:59 Dose: 4 mg Documented by: Ondansetron HCl (Zofran Odt) 8 mg PO Q8HR [facility] Last Admin: 12/19/18 05:49 Dose: 8 mg Documented by: Sodium Chloride (Sodium Chloride Flush Syringe 10 Ml) 10 ml IV BID [facility] Last Admin: 12/19/18 09:54 Dose: 10 ml Documented by: Sodium Chloride (Sodium Chloride Flush Syringe 10 Ml) 10 ml IV PRN PRN PRN Reason: LINE FLUSH medications reviewed/updated as required Review of Systems - Review of Systems Constitutional: weight loss, other (dysphagia) Gastrointestinal: hematemesis, other (dark stool) Exam - Constitutional Vital Signs: Temp Pulse Resp BP Pulse Ox 98.6 F 88 14 99/52 100 12/19/18 08:00 12/19/18 08:00 12/19/18 08:00 12/19/18 08:00 12/19/18 08:00 General appearance: no acute distress, cachectic - Respiratory Respiratory effort: normal - Cardiovascular Rhythm: regular - Gastrointestinal General gastrointestinal: Present: soft, non-distended, normal bowel sounds, other (+PEG) Rectal Exam: other (no blood or melena-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 (Louise NIXON)) - Neurologic Neurological: alert and oriented x3 - Labs CBC & Chem 7: 12/19/18 05:24 12/19/18 09:31 Lab Results: Laboratory Results - last 24 hr 12/18/18 12/18/18 12/18/18 18:49 19:25 19:25 WBC 4.6 RBC 4.45 Hgb 12.4 Hct 36.6 MCV 82 L MCH 28 MCHC 34 RDW 14.1 Plt Count 323 Lymph % (Auto) 18.9 [place] % (Auto) 8.4 H Eos % (Auto) 1.2 Baso % (Auto) 0.3 Lymph # 0.9 L [place] # 0.4 Eos # 0.1 Baso # 0.0 Seg Neutrophils % 71.2 H Seg Neutrophils # 3.3 PT 14.2 INR 1.13 APTT 36.5 Sodium Potassium Chloride Carbon Dioxide Anion Gap BUN Creatinine Estimated GFR BUN/Creatinine Ratio Glucose Calcium Total Bilirubin AST ALT Alkaline Phosphatase Total Protein Albumin Albumin/Globulin Ratio Lipase Urine Color Yellow Urine Turbidity Clear Urine pH 5.0 Ur Specific [place] 1.017 Urine Protein <15 mg/dl Urine Glucose (UA) Neg Urine Ketones 80 Urine Blood Neg Urine Nitrite Neg Urine Bilirubin Neg Urine Urobilinogen < 2.0 Ur Leukocyte Esterase Neg Urine WBC (Auto) < 1.0 Urine RBC (Auto) 1.0 Blood Type Antibody Screen 12/18/18 12/18/18 12/19/18 19:25 19:25 05:24 WBC RBC Hgb 12.2 Hct 35.9 MCV MCH MCHC RDW Plt Count Lymph % (Auto) [place] % (Auto) Eos % (Auto) Baso % (Auto) Lymph # [place] # Eos # Baso # Seg Neutrophils % Seg Neutrophils # PT INR APTT Sodium 124 L Potassium 4.9 Chloride 86.6 L Carbon Dioxide 17 L Anion Gap 25 BUN 10 Creatinine 0.7 L Estimated GFR > 60 BUN/Creatinine Ratio 14 Glucose 64 L Calcium 9.0 Total Bilirubin 0.50 AST 28 ALT 13 Alkaline Phosphatase 84 Total Protein 8.5 H Albumin 5.1 H Albumin/Globulin Ratio 1.5 Lipase 18 Urine Color Urine Turbidity Urine pH Ur Specific [place] Urine Protein Urine Glucose (UA) Urine Ketones Urine Blood Urine Nitrite Urine Bilirubin Urine Urobilinogen Ur Leukocyte Esterase Urine WBC (Auto) Urine RBC (Auto) Blood Type O POSITIVE Antibody Screen Negative 12/19/18 09:31 WBC RBC Hgb Hct MCV MCH MCHC RDW Plt Count Lymph % (Auto) [place] % (Auto) Eos % (Auto) Baso % (Auto) Lymph # [place] # Eos # Baso # Seg Neutrophils % Seg Neutrophils # PT INR APTT Sodium 130 L Potassium 4.7 Chloride 99.1 Carbon Dioxide 14 L Anion Gap 22 BUN 9 Creatinine 0.8 Estimated GFR > 60 BUN/Creatinine Ratio 11 Glucose 96 Calcium 8.7 Total Bilirubin AST ALT Alkaline Phosphatase Total Protein Albumin Albumin/Globulin Ratio Lipase Urine Color Urine Turbidity Urine pH Ur Specific [place] Urine Protein Urine Glucose (UA) Urine Ketones Urine Blood Urine Nitrite Urine Bilirubin Urine Urobilinogen Ur Leukocyte Esterase Urine WBC (Auto) Urine RBC (Auto) Blood Type Antibody Screen Assessment and Plan 1.UGIB 2.black stool 3.H/o lymphoma (cervical; s/p resection/radiation) 4.dysphagia (s/p PEG) 5.thyroid mass 6.H/o Chronic maxillary and mandibular osteomyelitis -guaiac stool was negative -H/H WNL (12.2/35.9) -continue to monitor H/H and transfuse as needed -patient with scant amount of bloody oral secretions in bedside emesis bag this am that he spit up. Last BM with "dark stool" was last Monday (4 days ago). No hematochezia. Upon exam, Rectal was negative w/o evidence of blood or melena and PEG residual nonbloody (no clinical evidence of overt GI bleeding). -etiology-patient has a hx of lymphoma (cervical region) s/p resection/radiation with chronic hematemesis due to oropharyngeal lesions c/w chronic radiation changes seen on previous EGD which are likely the source of bleeding (including swallowing blood into the stomach and regurgitating). -EGD 08/07/18- showed: 1. 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 Normal esophagus and duodenum 3. Small Hiatal hernia 4. 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 PEG present in body of stomach without inflammation -no plan for repeat EGD at this time -daily PPI -okay to resume diet/TFs per dietary recommendations -recommend patient f/u [facility] upon d/c for further management -no further recommendations per GI standpoint -will sign off. Please call if needed
[2018-12-19] MEDS ORDERED: PROTONIX IV SCH (12:00)
[2018-12-19 14:44] VITALS: BP 102/67
[2018-12-19 15:48] LABS: Hematocrit 30.2 % (35.5-45.6); Hemoglobin 10.4 gm/dl (11.8-15.2)
--- NOTE | 2018-12-19 16:53 | Discharge Summary ---
Providers - Providers Date of Admission: 12/18/18 21:41 Date of discharge: 12/19/18 Attending physician: ISSA BEJARANO 12/19/18 03:05 Consult to Physician [CONS] Routine Comment: Consulting Provider: SIMRAN GOMEZ Physician Instructions: Reason For Exam: black stool Primary care physician: [facility], Hospitalization Reason for admission: Abdominal pain/hematemesis and Dark stool Condition: Fair Pertinent studies: CT abdomen with out: PEG in place,no acute abnormalities noted Hospital course: 48 y/o male patient with PMH of Non-Hodgkin's lymphoma (s/p resection/radiation with dysphagia; s/p PEG; followed by [facility]), malnutrition, thyroid gland mass, chronic maxillary and mandibular osteomyelitis, and UGIB who presented to ED with c/o coughing/vomiting up blood, throat pain, difficulty swallowing/inability to tolerate PO, and dark stool ("almost black" Upon evaluation patient's H and H are stable however had hyponatremia. Admitted to nmonitor and correct eletrolyte abnormalities as well as evaluate for dark stool. GI was consulted,evaluated the patient,patient did not have new episodes of dark stool or rectal bleeding H/H stable,stool neg for occult blood.No plans of EGD,past EGD findings reviewed done in jul 2018. GI cleared for discharge and advised the pt to f/u with ENT and GI at [place]. Patient is hemodynamically and clinically stable at discharge. Discharge Diagnosis: --Hyponatremia: improved --Dehydration : resolved --UGIB/Hematemesis : resolved --h/o black stool : resolved,no new episodes,H/H stable --H/o Non Hodgkin's lymphoma (cervical; s/p resection/radiation) -- H/O dysphagia (s/p PEG) --Thyroid mass --H/o Chronic maxillary and mandibular osteomyelitis Disposition: - TO HOME OR SELFCARE Time spent for discharge: 32 min Core Measure Documentation - Palliative Care Palliative Care/ Comfort Measures: Not Applicable - Core Measures Any of the following diagnoses?: none Exam - Constitutional Vitals: Temp Pulse Resp BP Pulse Ox 98.8 F 80 14 102/67 98 12/19/18 14:40 12/19/18 14:40 12/19/18 14:40 12/19/18 14:40 12/19/18 14:40 General appearance: Present: no acute distress, cachectic, disheveled - EENT Eyes: Present: PERRL, EOM intact - Neck Neck: Present: supple, normal ROM - Respiratory Respiratory effort: normal Respiratory: bilateral: diminished, negative: rales, rhonchi, wheezing - Cardiovascular Rhythm: regular Heart Sounds: Present: S1 & S2 - Extremities Extremities: no ischemia, No edema - Abdominal General gastrointestinal: Present: soft, non-tender, non-distended, normal bowel sounds - Integumentary Integumentary: Present: clear, warm - Musculoskeletal Musculoskeletal: strength equal bilaterally, generalized weakness - Psychiatric Psychiatric: appropriate mood/affect, cooperative - Neurologic Neurologic: CNII-XII intact, moves all extremities Plan Activity: advance as tolerated, fall precautions Diet: other (Tube feeding /oral diet as tolerated) Additional Instructions: -recommend patient f/u [facility] upon d/c for further management. [facility] as needed Follow up with: RONA TREVIZO MD [Primary Care Provider] - 7 Days Prescriptions: Pantoprazole Sodium [Protonix] 40 mg PO DAILY #30 mikekt.
== END 2018-12-19 20:25 | disposition home or self-care (01) | DRG 640 ==
LOC: ED 17:27 → 4A 21:41
PROVIDERS: ADMIT Internal Medicine; ATTEND Internal Medicine
DX: E87.1 Hypo-osmolality and hyponatremia (principal); K22.3 Perforation of esophagus; R64 Cachexia; Z68.1 Body mass index [BMI] 19.9 or less, adult; I10 Essential (primary) hypertension; E86.0 Dehydration; F32.9 Major depressive disorder, single episode, unspecified; F17.210 Nicotine dependence, cigarettes, uncomplicated; R13.10 Dysphagia, unspecified
CPT/HCPCS: 36415; 74176; 80048; 80053; 81001; 82271; 83690; 85014; 85018; 85025; 85610; 85730; 86850; 86900; 86901; 93005; 93010; G0378; C9113; J1200; J2270; J2405; J2765; J3010; J7030; Q0162

== ENCOUNTER 2019-01-29 22:43 | Emergency (ER) | payer MEDICAID ==
[2019-01-30] MEDS ORDERED: LIDOCAINE VISCOUS 2% PO ONE
[2019-01-30] MEDS ORDERED: ROXICODONE PO ONE
[2019-01-30 00:20] LABS: Hematocrit 33.1 % (35.5-45.6); Hemoglobin 11.4 gm/dl (11.8-15.2); Mean Corpuscular Volume 84 fl (84-94); Red Blood Count 3.93 M/mm3 (3.65-5.03)
[2019-01-30 00:21] LABS: Basophils # (Auto) 0.1 K/mm3 (0.0-0.1); Basophils % (Auto) 1.1 % (0.0-1.8); Eosinophils # (Auto) 0.2 K/mm3 (0.0-0.4); Eosinophils % (Auto) 3.1 % (0.0-4.3); Lymphocytes # (Auto) 1.8 K/mm3 (1.2-5.4); Lymphocytes % (Auto) 35.2 % (13.4-35.0); Mean Corpuscular HGB Conc 34 % (32-34); Mean Platelet Volume 8.5 fl (6-12); Monocytes # (Auto) 0.7 K/mm3 (0.0-0.8); Monocytes % (Auto) 13.2 % (0.0-7.3); Platelet Count 245 K/mm3 (140-440); Red Cell Distribution Width 14.6 % (13.2-15.2)
[2019-01-30 00:27] LABS: BUN/Creatinine Ratio 18; Blood Urea Nitrogen 16 mg/dL (9-20); Calcium 9.7 mg/dL (8.4-10.2); Hemolysis Index 5
[2019-01-30 01:17] VITALS: BP 125/83
--- NOTE | 2019-01-30 01:17 | Emergency Department Report ---
ED General Adult HPI - General Chief complaint: Psych Stated complaint: ILIA FROM [facility] Time Seen by Provider: 01/29/19 23:49 Source: patient, EMS (ems notes not available at time of chart dictation), RN notes reviewed, old records reviewed Mode of arrival: Ambulatory Limitations: Other - History of Present Illness Initial comments: This is a 48-year-old gentleman. 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 The patient tells me that he was feeling depressed a few days ago, and is feeling depressed currently, and a few days ago was feeling suicidal, and th erefore, attempted to overdose on crack cocaine. Currently, he is not suicidal. He reports that he does not have access to guns or firearms. He endorses that he is not experiencing hallucinations at this time. The patient is remorseful about his crack cocaine binge. He further reports that he is motivated to live, and he is motivated to participate in his chronic medical care. He reports that he has follow-up this Monday, at [facility], both with oral surgery and ENT. He reports chronic dental pain in his left lower mandible, and has bilateral anterior quadricep discomfort. He denies other physical or new pain. He reports that he is here simply for medical clearance [facility]. He is adamant that he is not currently homicidal or suicidal at this time. Location: mouth, left, right, lower extremity Radiation: non-radiation Severity scale (0 -10): 10 Quality: aching Consistency: intermittent Improves with: rest Worsens with: movement - Related Data Previous Rx's Medication Instructions Recorded Last Taken Type Fluconazole [Diflucan TAB] 2 tab PO QDAY #28 tablet 10/05/18 12/16/18 Rx Gabapentin [Neurontin] 100 mg PO Q8HR #90 capsule 10/05/18 12/16/18 Rx Meclizine [Antivert] 25 mg PO TID PRN #20 tablet 10/15/18 12/16/18 Rx Ondansetron [Zofran ODT TAB] 8 mg PO Q8HR #20 tab.rapdis 10/15/18 12/16/18 Rx Pantoprazole Sodium [Protonix] 40 mg PO DAILY #30 granpkt. 12/19/18 Unknown Rx Allergies Allergy/AdvReac Type Severity Reaction Status Date / Time No Known Allergies Allergy Verified 12/18/18 18:25 ED Review of Systems ROS: Stated complaint: MH FROM [facility] Other details as noted in HPI Constitutional: denies: fever Eyes: denies: eye discharge ENT: dental pain. denies: hearing loss Respiratory: denies: cough Cardiovascular: denies: chest pain Gastrointestinal: denies: abdominal pain Genitourinary: denies: dysuria Musculoskeletal: myalgia Skin: denies: lesions Psychiatric: depression. denies: homicidal thoughts, suicidal thoughts ED Past Medical Hx - Past Medical History Hx Hypertension: Yes Hx Heart Attack/AMI: No Hx Congestive Heart Failure: No Hx Diabetes: No Hx Deep Vein Thrombosis: No Hx Psychiatric Treatment: Yes (depression,alcoholic) Hx Asthma: No Hx COPD: No Hx HIV: No Additional medical history: 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/ alcohol abuse/GT placed in August 2016 due to the cancer - Surgical History Hx Coronary Stent: No Hx Pacemaker: No Hx Internal Defibrillator: No Additional Surgical History: BIOPSY, ESOPHAGUS SURGERY, decreased hearing, feeding tube - Social History Smoking Status: Current Every Day Smoker - Medications Home Medications: Home Medications Medication Instructions Recorded Confirmed Last Taken Type Fluconazole [Diflucan TAB] 2 tab PO QDAY #28 tablet 10/05/18 01/29/19 12/16/18 Rx Gabapentin [Neurontin] 100 mg PO Q8HR #90 capsule 10/05/18 01/29/19 12/16/18 Rx Meclizine [Antivert] 25 mg PO TID PRN #20 tablet 10/15/18 01/29/19 12/16/18 Rx Ondansetron [Zofran ODT TAB] 8 mg PO Q8HR #20 tab.surendradis 10/15/18 01/29/19 12/16/18 Rx Pantoprazole Sodium [Protonix] 40 mg PO DAILY #30 granpkt. 12/19/18 01/29/19 Unknown Rx ED Physical Exam - General Limitations: No Limitations General appearance: alert, in no apparent distress - Head Head exam: Present: atraumatic, normocephalic - Eye Eye exam: Present: normal appearance, EOMI. Absent: nystagmus - ENT ENT exam: Present: normal exam, mucous membranes moist, normal external ear exam. Absent: normal orophraynx (patient is essentially edentulous. There is no stridor, redness, pus or streaking. There is no dysphonia. He is speaking in full sentences.) - Neck Neck exam: Present: normal inspection, lymphadenopathy (there is an enlarged nontender right sided paracervical mass. The patient states that this is chronic.) - Respiratory Respiratory exam: Present: normal lung sounds bilaterally. Absent: respiratory distress - Cardiovascular Cardiovascular Exam: Present: regular rate, normal rhythm, normal heart sounds. Absent: bradycardia, tachycardia, irregular rhythm, systolic murmur, diastolic murmur, rubs, gallop - GI/Abdominal GI/Abdominal exam: Present: soft, other (patient's feeding tube in place, no redness, pus or streaking). Absent: distended, tenderness, guarding, rebound, rigid, pulsatile mass - Rectal Rectal exam: Present: deferred - Extremities Exam Extremities exam: Present: normal inspection, full ROM, other (2+ pulses noted in the bilateral upper, lower extremities. Compartments soft. No long bony tenderness. The pelvis is stable.). Absent: pedal edema, joint swelling, calf tenderness - Back Exam Back exam: Present: normal inspection - Neurological Exam Neurological exam: Present: alert, oriented X3, normal gait, other (Extraocular movements intact. Tongue midline. No facial droop. Facial sensation intact to light touch in the V1, V2, V3 distribution bilaterally. 5 and 5 strength in 4 extremities.. Sensation is intact to light touch in 4 extremities.). Absent: motor sensory deficit - Psychiatric Psychiatric exam: Present: anxious. Absent: homicidal ideation, suicidal ideation - Skin Skin exam: Present: warm, dry, intact, normal color. Absent: rash ED Course Vital Signs 01/30/19 01:16 Temperature 98.4 F Pulse Rate 94 H Respiratory 16 Rate Blood Pressure 125/83 [Right] O2 Sat by Pulse 98 Oximetry ED Medical Decision Making - Lab Data Result diagrams: 01/29/19 23:27 01/29/19 23:27 Vital Signs 01/30/19 01:16 Temperature 98.4 F Pulse Rate 94 H Respiratory 16 Rate Blood Pressure 125/83 [Right] O2 Sat by Pulse 98 Oximetry Lab Results 01/29/19 01/29/19 01/29/19 Range/Units 23:27 23:27 23:27 WBC (4.5-11.0) K/mm3 RBC (3.65-5.03) M/mm3 Hgb (11.8-15.2) gm/dl Hct (35.5-45.6) % MCV (84-94) fl MCH (28-32) pg MCHC (32-34) % RDW (13.2-15.2) % Plt Count (140-440) K/mm3 Lymph % (Auto) (13.4-35.0) % Custer % (Auto) (0.0-7.3) % Eos % (Auto) (0.0-4.3) % Baso % (Auto) (0.0-1.8) % Lymph # (1.2-5.4) K/mm3 Custer # (0.0-0.8) K/mm3 Eos # (0.0-0.4) K/mm3 Baso # (0.0-0.1) K/mm3 Seg Neutrophils % (40.0-70.0) % Seg Neutrophils # (1.8-7.7) K/mm3 Sodium 137 (137-145) mmol/L Potassium 4.9 (3.6-5.0) mmol/L Chloride 101.6 (98-107) mmol/L Carbon Dioxide 23 (22-30) mmol/L Anion Gap 17 mmol/L BUN 16 (9-20) mg/dL Creatinine 0.9 (0.8-1.5) mg/dL Estimated GFR > 60 ml/min BUN/Creatinine Ratio 18 % Glucose 73 L (75-100) mg/dL Calcium 9.7 (8.4-10.2) mg/dL Magnesium 2.50 H (1.7-2.3) mg/dL Total Creatine Kinase 953 H (55-170) units/L Salicylates < 0.3 L (2.8-20.0) mg/dL Acetaminophen < 5.0 L (10.0-30.0) ug/mL Plasma/Serum Alcohol (0-0.07) % 01/29/19 01/29/19 Range/Units 23:27 23:27 WBC 5.0 (4.5-11.0) K/mm3 RBC 3.93 (3.65-5.03) M/mm3 Hgb 11.4 L (11.8-15.2) gm/dl Hct 33.1 L (35.5-45.6) % MCV 84 (84-94) fl MCH 29 (28-32) pg MCHC 34 (32-34) % RDW 14.6 (13.2-15.2) % Plt Count 245 (140-440) K/mm3 Lymph % (Auto) 35.2 H (13.4-35.0) % Custer % (Auto) 13.2 H (0.0-7.3) % Eos % (Auto) 3.1 (0.0-4.3) % Baso % (Auto) 1.1 (0.0-1.8) % Lymph # 1.8 (1.2-5.4) K/mm3 Custer # 0.7 (0.0-0.8) K/mm3 Eos # 0.2 (0.0-0.4) K/mm3 Baso # 0.1 (0.0-0.1) K/mm3 Seg Neutrophils % 47.4 (40.0-70.0) % Seg Neutrophils # 2.4 (1.8-7.7) K/mm3 Sodium (137-145) mmol/L Potassium (3.6-5.0) mmol/L Chloride (98-107) mmol/L Carbon Dioxide (22-30) mmol/L Anion Gap mmol/L BUN (9-20) mg/dL Creatinine (0.8-1.5) mg/dL Estimated GFR ml/min BUN/Creatinine Ratio % Glucose (75-100) mg/dL Calcium (8.4-10.2) mg/dL Magnesium (1.7-2.3) mg/dL Total Creatine Kinase (55-170) units/L Salicylates (2.8-20.0) mg/dL Acetaminophen (10.0-30.0) ug/mL Plasma/Serum Alcohol < 0.01 (0-0.07) % - EKG Data -: EKG Interpreted by Ut EKG shows normal: sinus rhythm Rate: normal - EKG Data 01/30/19 01:20 This is a normal sinus rhythm, 75 bpm, normal axis, QTC within normal limits, left ventricular hypertrophy, symmetric peak T waves, this EKG is abnormal, there is no endorsement of chest pain, the EKG is not consistent with ST elevation myocardial infarction. - Medical Decision Making Differential diagnosis, including but not limited to: Crack cocaine binge, medical clearance, dysthymia, medical clearance for psychiatric placement Assessment and plan: 48-year-old gentleman, who is calm, cooperative, lucid, not clinically intoxicated, exhibits decision-making capacity, who is not homicidal or suicidal at this time. The patient does not meet 1013 criteria at this time. Screening laboratory studies are reviewed and appreciated. CK of 950 will decrease on its own with oral hydration. It is likely related to his recent crack cocaine binge. Patient has endorsed no urinary symptoms, and therefore, does not require screening urinalysis. A urine drug screen will not be of clinical utility at this time, as the patient is clinically sober. The patient does not appear to have an immediate medical contraindication at this time to psychiatric placement, evaluation. Indeed, the patient is quite motivated to participate in his outpatient medical care, and he is anxious and also enthusiastic to follow-up with his [facility] appointment on Monday. Critical care attestation.: If time is entered above; I have spent that time in minutes in the direct care of this critically ill patient, excluding procedure time. ED Disposition Clinical Impression: Medical clearance for psychiatric admission Disposition: DC/TX-65 PSY HOSP/PSY UNIT Is pt being admited?: No Does the pt Need Aspirin: No Condition: Stable Additional Instructions: Continue current outpatient medications. Tube feeds as patient has been doing. Patient should follow-up with his oral surgeon and ENT physician this Monday as scheduled. The patient at this point time does not appear to have an immediate medical contraindication to psychiatric placement. The patient may return to the emergency room right away if and when he develops new, worsening or different symptoms. The patient is counseled to avoid consumption of crack cocaine and illegal drugs. Referrals: RYDER PETTY MD [Primary Care Provider] - 3-5 Days
[2019-01-30 01:34] LABS: Bilirubin,Urine NEG (Negative); Blood,Urine NEG (Negative); Color,Urine Yellow (Yellow); Mucus,Urine FEW /HPF; Protein,Urine <15 mg/dL mg/dL (Negative); Urobilinogen,Urine < 2.0 mg/dL (<2.0)
[2019-01-30 01:36] LABS: WBC,Urine < 1.0 /HPF (0.0-6.0)
[2019-01-30 02:04] LABS: Amphetamine Screen,Urine PRESUMPTIVE NEGATIVE; Benzodiazepines Screen,Urine PRESUMPTIVE NEGATIVE; Methadone Screen,Urine PRESUMPTIVE NEGATIVE; Opiate Screen,Urine PRESUMPTIVE NEGATIVE
[2019-01-30 02:22] LABS: Cannabinoid Screen,Urine PRESUMPTIVE POSITIVE; Cocaine Screen,Urine PRESUMPTIVE POSITIVE
== END 2019-01-30 01:45 ==
LOC: ED 22:43
DX: F32.9 Major depressive disorder, single episode, unspecified (principal); I10 Essential (primary) hypertension; F17.200 Nicotine dependence, unspecified, uncomplicated; Z98.890 Other specified postprocedural states; Z85.72 Personal history of non-Hodgkin lymphomas; Z79.899 Other long term (current) drug therapy
CPT/HCPCS: 36415; 80048; 80307; 80320; 81001; 82550; 83735; 85025; 93005; 93010; G0480

== ENCOUNTER 2019-04-12 16:00 | Emergency (ER) | payer MEDICAID ==
--- NOTE | 2019-04-12 16:24 | Event Note ---
ED Screening Note Date of service: 04/12/19 Time: 16:19 ED Screening Note: Pt complains of dysphagia after having oral surgery x yesterday at [facility]- released yesterday from 10 day stay per pt. States multiple tooth extractions for infections and 2 abscesses. Gas a peg tube placed. States had a blood transfusion yesterday. Hx is vague and disorganized This initial assessment/diagnostic orders/clinical plan/treatment(s) is/are subject to change based on patients health status, clinical progression and re- assessment by fellow clinical providers in the ED. Further treatment and workup at subsequent clinical providers discretion. Patient/guardian urged not to elope from the ED as their condition may be serious if not clinically assessed and managed. Initial orders include: Labs Fare Collector
[2019-04-12 17:37] LABS: Basophils % (Auto) 0.3 % (0.0-1.8); Eosinophils % (Auto) 0.7 % (0.0-4.3); Hemoglobin 10.6 gm/dl (11.8-15.2); Lymphocytes # (Auto) 0.5 K/mm3 (1.2-5.4); Lymphocytes % (Auto) 8.9 % (13.4-35.0); Mean Corpuscular HGB Conc 33 % (32-34); Mean Corpuscular Volume 82 fl (84-94); Monocytes # (Auto) 0.6 K/mm3 (0.0-0.8); Monocytes % (Auto) 10.2 % (0.0-7.3); Platelet Count 314 K/mm3 (140-440); Red Blood Count 3.92 M/mm3 (3.65-5.03); Red Cell Distribution Width 15.7 % (13.2-15.2)
[2019-04-12 18:04] LABS: Alanine Aminotransferase 10 units/L (7-56); Albumin 4.8 g/dL (3.9-5); BUN/Creatinine Ratio 19; Blood Urea Nitrogen 17 mg/dL (9-20); Calcium 9.4 mg/dL (8.4-10.2); Hemolysis Index 5
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
--- NOTE | 2019-04-12 22:41 | XRay Report ---
CHEST 2 VIEWS INDICATION / CLINICAL INFORMATION: sob. COMPARISON: 04/28/2016 FINDINGS: SUPPORT DEVICES: None. HEART / MEDIASTINUM: No significant abnormality. LUNGS / PLEURA: No significant pulmonary or pleural abnormality. No pneumothorax. ADDITIONAL FINDINGS: No significant additional findings. IMPRESSION: 1. No acute findings. Signer Name: Kevan Jacome MD Signed: 04/12/2019 10:36 PM Workstation Name: [id number]
[2019-04-13 00:17] VITALS: BP 137/86
== END 2019-04-12 23:25 | disposition home or self-care (01) ==
LOC: ED 16:00
DX: R53.1 Weakness (principal); J02.9 Acute pharyngitis, unspecified; I10 Essential (primary) hypertension; F32.9 Major depressive disorder, single episode, unspecified; Z98.890 Other specified postprocedural states; Z79.899 Other long term (current) drug therapy
CPT/HCPCS: 36415; 71046; 80053; 85025

== ENCOUNTER 2019-04-13 13:08 | Emergency (ER) | payer MEDICAID ==
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
--- NOTE | 2019-04-13 14:16 | Emergency Department Report ---
ED General Adult HPI - General Chief complaint: Dizziness Stated complaint: FEELING ILL Time Seen by Provider: 04/13/19 13:22 Source: patient Mode of arrival: Ambulatory Limitations: No Limitations - History of Present Illness Initial comments: 48-year-old male with a history of high blood pressure, depression, vertigo, neuropathy and recent oral surgery performed at [place] for an oral infection present the complaint of dizziness. Patient was evaluated in ER yesterday and was discharged. Patient states he had a transfusion recently but hemoglobin was 10 yesterday. Patient states that he was kicked out of where he lives and has no way to get back to [place]. Patient after being discharged yesterday remained in the waiting room and represent with his complaint of dizziness. Patient is able to ambulate while here in emergency department. - Related Data Previous Rx's Medication Instructions Recorded Last Taken Type Fluconazole [Diflucan TAB] 2 tab PO QDAY #28 tablet 10/05/18 12/16/18 Rx Gabapentin [Neurontin] 100 mg PO Q8HR #90 capsule 10/05/18 12/16/18 Rx Meclizine [Antivert] 25 mg PO TID PRN #20 tablet 10/15/18 12/16/18 Rx Ondansetron [Zofran ODT TAB] 8 mg PO Q8HR #20 tab.rapdis 10/15/18 12/16/18 Rx Pantoprazole Sodium [Protonix] 40 mg PO DAILY #30 granpkt. 12/19/18 Unknown Rx Allergies Allergy/AdvReac Type Severity Reaction Status Date / Time No Known Allergies Allergy Verified 04/13/19 13:17 ED Review of Systems ROS: Stated complaint: FEELING ILL Other details as noted in HPI Constitutional: denies: chills, fever Eyes: denies: eye pain, eye discharge, vision change ENT: denies: ear pain, throat pain Respiratory: denies: cough, shortness of breath, wheezing Cardiovascular: denies: chest pain, palpitations Endocrine: no symptoms reported Gastrointestinal: denies: abdominal pain, nausea, diarrhea Genitourinary: denies: urgency, dysuria Musculoskeletal: denies: back pain, joint swelling, arthralgia Skin: denies: rash, lesions Neurological: other (dizziness) Psychiatric: denies: anxiety, depression Hematological/Lymphatic: denies: easy bleeding, easy bruising ED Past Medical Hx - Past Medical History Previous Medical History?: Yes Hx Hypertension: Yes Hx Heart Attack/AMI: No Hx Congestive Heart Failure: No Hx Diabetes: No Hx Deep Vein Thrombosis: No Hx Psychiatric Treatment: Yes (depression,alcoholic) Hx Asthma: No Hx COPD: No Hx HIV: No Additional medical history: 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/ alcohol abuse/GT placed in August 2016 due to the cancer - Surgical History Past Surgical History?: Yes Hx Coronary Stent: No Hx Pacemaker: No Hx Internal Defibrillator: No Additional Surgical History: BIOPSY, ESOPHAGUS SURGERY, decreased hearing, feeding tube - Social History Smoking Status: Never Smoker Substance Use Type: None - Medications Home Medications: Home Medications Medication Instructions Recorded Confirmed Last Taken Type Fluconazole [Diflucan TAB] 2 tab PO QDAY #28 tablet 10/05/18 01/29/19 12/16/18 Rx Gabapentin [Neurontin] 100 mg PO Q8HR #90 capsule 10/05/18 01/29/19 12/16/18 Rx Meclizine [Antivert] 25 mg PO TID PRN #20 tablet 10/15/18 01/29/19 12/16/18 Rx Ondansetron [Zofran ODT TAB] 8 mg PO Q8HR #20 tab.rapdis 10/15/18 01/29/19 12/16/18 Rx Pantoprazole Sodium [Protonix] 40 mg PO DAILY #30 granpkt. 12/19/18 01/29/19 Unknown Rx ED Physical Exam - General Limitations: No Limitations General appearance: alert, in no apparent distress, other (dishelved; ) - Head Head exam: Present: atraumatic, normocephalic - Eye Eye exam: Present: normal appearance - ENT ENT exam: Present: other (poor dentition; uvula midline; no active oral bleeding) - Neck Neck exam: Present: normal inspection - Respiratory Respiratory exam: Present: normal lung sounds bilaterally. Absent: respiratory distress - Cardiovascular Cardiovascular Exam: Present: regular rate, normal rhythm. Absent: systolic murmur, diastolic murmur, rubs, gallop - GI/Abdominal GI/Abdominal exam: Present: soft, normal bowel sounds - Rectal Rectal exam: Present: deferred - Extremities Exam Extremities exam: Present: normal inspection - Back Exam Back exam: Present: normal inspection - Neurological Exam Neurological exam: Present: alert, oriented X3, normal gait - Psychiatric Psychiatric exam: Present: normal affect, normal mood - Skin Skin exam: Present: warm, dry, intact, normal color. Absent: rash ED Course Vital Signs 04/13/19 13:22 Temperature 97.7 F Pulse Rate 105 H Respiratory 16 Rate Blood Pressure 127/90 [Left] O2 Sat by Pulse 100 Oximetry ED Medical Decision Making - Lab Data Result diagrams: 04/13/19 15:12 - Medical Decision Making Patient has stable hemoglobin. Patient to be discharged to follow-up with PCP as an outpatient. - Differential Diagnosis Anemia; electrolyte abnormality; dehydration Critical care attestation.: If time is entered above; I have spent that time in minutes in the direct care of this critically ill patient, excluding procedure time. ED Disposition Clinical Impression: Anemia, Dizziness Disposition: DC-01 TO HOME OR SELFCARE Is pt being admited?: No Does the pt Need Aspirin: No Condition: Stable Referrals: PRIMARY CARE, [Primary Care Provider] - 3-5 Days Time of Disposition: 15:43 Print Language: TURKISH
[2019-04-13 15:30] LABS: Basophils % (Auto) 0.4 % (0.0-1.8); Eosinophils # (Auto) 0.1 K/mm3 (0.0-0.4); Hematocrit 32.6 % (35.5-45.6); Hemoglobin 10.8 gm/dl (11.8-15.2); Lymphocytes # (Auto) 0.7 K/mm3 (1.2-5.4); Lymphocytes % (Auto) 16.4 % (13.4-35.0); Mean Corpuscular HGB Conc 33 % (32-34); Mean Corpuscular Volume 82 fl (84-94); Monocytes # (Auto) 0.6 K/mm3 (0.0-0.8); Monocytes % (Auto) 13.3 % (0.0-7.3); Platelet Count 321 K/mm3 (140-440); Red Blood Count 3.99 M/mm3 (3.65-5.03); Red Cell Distribution Width 15.7 % (13.2-15.2)
[2019-04-13 15:52] LABS: Alanine Aminotransferase 9 units/L (7-56); Albumin 4.8 g/dL (3.9-5); BUN/Creatinine Ratio 22; Blood Urea Nitrogen 13 mg/dL (9-20); Calcium 9.6 mg/dL (8.4-10.2); Hemolysis Index 4
[2019-04-14 09:09] VITALS: BP 109/83
== END 2019-04-14 09:57 | disposition home or self-care (01) ==
LOC: ED 13:08
DX: D64.9 Anemia, unspecified (principal); I10 Essential (primary) hypertension; F32.9 Major depressive disorder, single episode, unspecified; Z98.890 Other specified postprocedural states; Z79.899 Other long term (current) drug therapy
CPT/HCPCS: 36415; 80053; 85025; 99283

== ENCOUNTER 2020-07-19 10:15 | Emergency (ER) | payer MEDICAID ==
[2020-07-19 10:41] VITALS: BP 98/71
--- NOTE | 2020-07-19 11:18 | Event Note ---
ED Screening Note Date of service: 07/19/20 Time: 11:19 ED Screening Note: 49-year-old -[place] male presents to the emergency room stating that he has not been able to eat in 4 days. Patient complains of nausea vomiting and neck pain. Patient states that he has cancer in his neck status post radiation and chemotherapy. Patient has a past medical history of hypertension alcohol abuse depression. Patient reports he is followed by [facility] with his cancer pain management and primary care. Patient is requesting 5 mg of oxycodone. Inform patient I can offer him Tylenol or ibuprofen. Patient refuses. States that it does not help his pain. This initial assessment/diagnostic orders/clinical plan/treatment(s) is/are subject to change based on patients health status, clinical progression and re- assessment by fellow clinical providers in the ED. Further treatment and workup at subsequent clinical providers discretion. Patient/guardian urged not to elope from the ED as their condition may be serious if not clinically assessed and managed. Initial orders include: Will order basic labs chest x-ray patient will be evaluated in the main ER
[2020-07-19] MEDS ORDERED: SODIUM CHLORIDE 0.9% 1000 ML 1,000 ML IV ONE ×3 (11:21→14:51)
[2020-07-19] MEDS ORDERED: ONDANSETRON 4 MG/2 ML INJ IV ONE (11:21)
--- NOTE | 2020-07-19 12:01 | XRay Report ---
XR chest routine 2V INDICATION / CLINICAL INFORMATION: Weakness concern for Covid. COMPARISON: None available. FINDINGS: SUPPORT DEVICES: None. HEART /PULMONARY VASCULATURE: No significant abnormality. LUNGS / PLEURA: No significant pulmonary or pleural abnormality. No pneumothorax. ADDITIONAL FINDINGS: Percutaneous gastrostomy tube projects over the stomach. IMPRESSION: 1. No acute findings. Signer Name: Kevan Sheth MD Signed: 07/19/2020 11:56 AM Workstation Name: [id number]
[2020-07-19] MEDS ORDERED: SODIUM CHLORIDE 0.9% 500 ML 500 ML IV ONE (12:11)
[2020-07-19] MEDS ORDERED: METOPROLOL TARTRATE 5 MG/5 ML INJ IV ONE (12:12)
[2020-07-19] MEDS ORDERED: PANTOPRAZOLE 40 MG INJ IV ONE ×2 (12:16→12:20)
[2020-07-19] MEDS ORDERED: KETOROLAC 30 MG/1 ML INJ IV ONE (12:16)
[2020-07-19] MEDS ORDERED: MORPHINE 4 MG/1 ML INJ IV ONE (12:18)
--- NOTE | 2020-07-19 12:26 | Emergency Department Report ---
ED N/V/D HPI - General Chief complaint: Weakness Stated complaint: COVID SYMPTOMS/DEHYRATED PUI?: No Time Seen by Provider: 07/19/20 12:08 Source: patient Mode of arrival: Wheelchair Limitations: Other - History of Present Illness Initial comments: CC: "I'm dehydrated. I thought I had COVID." HPI: This is a 49 yo male with hx of NHL s/p resection radiation with dyphagia, malutrition, UGIB, alcohol dependence, depression, PEG dependent who presents with vomiting. He has had vomiting for 4 days. He has been exposed to COVID. His roommate's was infected with COVID-19. He has diffuse pain. He is under pain management. He is requesting oxycodone. He explains that he has been evaluated at outside hospitals on a monthly basis for inability to eat. MD complaint: nausea, vomiting -: Gradual, days(s) (4) Description of Vomiting: food contents Associated Abdominal Pain: No Severity: severe Consistency: constant Improves with: none Worsens with: none Context: other (Patient has PEG tube in place, history of malnutrition, history of dysphagia) - Related Data Previous Rx's Medication Instructions Recorded Last Taken Type Fluconazole [Diflucan TAB] 2 tab PO QDAY #28 tablet 10/05/18 12/16/18 Rx Gabapentin 100 mg PO Q8HR #90 capsule 10/05/18 12/16/18 Rx Meclizine [Antivert] 25 mg PO TID PRN #20 tablet 10/15/18 12/16/18 Rx Ondansetron [Zofran ODT TAB] 8 mg PO Q8HR #20 tab.rapdis 10/15/18 12/16/18 Rx Pantoprazole Sodium [Protonix] 40 mg PO DAILY #30 gran 12/19/18 Unknown Rx Allergies Allergy/AdvReac Type Severity Reaction Status Date / Time No Known Allergies Allergy Verified 07/19/20 10:31 ED Review of Systems ROS: Stated complaint: COVID SYMPTOMS/DEHYRATED Other details as noted in HPI Comment: All other systems reviewed and negative Constitutional: malaise. denies: chills, fever Respiratory: denies: cough, shortness of breath Gastrointestinal: nausea, vomiting. denies: abdominal pain Musculoskeletal: myalgia ED Past Medical Hx - Past Medical History Previous Medical History?: Yes Hx Hypertension: Yes Hx Heart Attack/AMI: No Hx Congestive Heart Failure: No Hx Diabetes: No Hx Deep Vein Thrombosis: No Hx Psychiatric Treatment: Yes (depression,alcoholic) Hx Asthma: No Hx COPD: No Hx HIV: No Additional medical history: 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/ alcohol abuse/GT placed in August 2016 due to the cancer - Surgical History Past Surgical History?: Yes Hx Coronary Stent: No Hx Pacemaker: No Hx Internal Defibrillator: No Additional Surgical History: BIOPSY, ESOPHAGUS SURGERY, decreased hearing, feeding tube - Social History Smoking Status: Former Smoker Substance Use Type: Marijuana - Medications Home Medications: Home Medications Medication Instructions Recorded Confirmed Last Taken Type Fluconazole [Diflucan TAB] 2 tab PO QDAY #28 tablet 10/05/18 01/29/19 12/16/18 Rx Gabapentin 100 mg PO Q8HR #90 capsule 10/05/18 01/29/19 12/16/18 Rx Meclizine [Antivert] 25 mg PO TID PRN #20 tablet 10/15/18 01/29/19 12/16/18 Rx Ondansetron [Zofran ODT TAB] 8 mg PO Q8HR #20 tab.rapdis 10/15/18 01/29/19 12/16/18 Rx Pantoprazole Sodium [Protonix] 40 mg PO DAILY #30 granpkt. 12/19/18 01/29/19 Unknown Rx ED Physical Exam - General Limitations: Other General appearance: alert, in no apparent distress, cachectic - Head Head exam: Present: atraumatic, normocephalic - Eye Eye exam: Present: normal appearance - ENT ENT exam: Present: mucous membranes moist - Neck Neck exam: Present: normal inspection, full ROM. Absent: tenderness, meningis mus - Respiratory Respiratory exam: Present: normal lung sounds bilaterally. Absent: respiratory distress, wheezes, rales, rhonchi - Cardiovascular Cardiovascular Exam: Present: normal rhythm, tachycardia, normal heart sounds. Absent: systolic murmur, diastolic murmur, rubs, gallop - GI/Abdominal GI/Abdominal exam: Present: soft, normal bowel sounds. Absent: distended, tenderness, guarding, rebound - Rectal Rectal exam: Present: deferred - Extremities Exam Extremities exam: Present: normal inspection - Neurological Exam Neurological exam: Present: alert, oriented X3 - Psychiatric Psychiatric exam: Present: normal affect, normal mood - Skin Skin exam: Present: warm, dry, intact, normal color. Absent: rash ED Course Vital Signs 07/19/20 07/19/20 10:37 12:53 Temperature 98.0 F Pulse Rate 118 H Respiratory 23 18 Rate Blood Pressure 98/71 O2 Sat by Pulse 99 Oximetry ED Medical Decision Making - Lab Data Result diagrams: 07/19/20 11:24 07/19/20 11:24 - Radiology Data Radiology results: report reviewed, image reviewed CXR 2 view: no acute findings - Medical Decision Making Mr. Nazario presents with dehydration without persistent vomiting. He feels much better after receiving IV fluid therapy. CBC has leukopenia. Chemistry remarkable hyponatremia. Patient is discharged home. I strongly suggested COVID-19 testing. Differential diagnosis includes alcoholic gastritis, esophagitis, GERD, viral syndrome, food poisoning. Critical care attestation.: If time is entered above; I have spent that time in minutes in the direct care of this critically ill patient, excluding procedure time. ED Disposition Clinical Impression: Dehydration, Nausea and vomiting Disposition: DC-01 TO HOME OR SELFCARE Is pt being admited?: No Does the pt Need Aspirin: No Condition: Stable Instructions: Nausea and Vomiting, Adult Referrals: PRIMARY CARE, [Primary Care Provider] - 3-5 Days
[2020-07-19 13:52] LABS: Hematocrit 35.2 % (35.5-45.6); Hemoglobin 11.8 gm/dl (11.8-15.2); Mean Corpuscular HGB Conc 34 % (32-34); Mean Corpuscular Volume 81 fl (84-94); Platelet Count 328 K/mm3 (140-440); Red Blood Count 4.33 M/mm3 (3.65-5.03)
[2020-07-19 14:09] LABS: Alanine Aminotransferase 12 units/L (7-56); Albumin 4.7 g/dL (3.9-5); BUN/Creatinine Ratio 31; Blood Urea Nitrogen 25 mg/dL (9-20); Calcium 9.1 mg/dL (8.4-10.2); Hemolysis Index 9
[2020-07-19 15:30] LABS: Total Cells Counted 100
[2020-07-19 15:32] LABS: Schistocytes Rare; Target Cells Few
[2020-07-19 15:33] LABS: Platelet Estimate Consistent w Auto
== END 2020-07-19 17:53 | disposition home or self-care (01) ==
LOC: ED 10:15
DX: E86.0 Dehydration (principal); R11.2 Nausea with vomiting, unspecified; I10 Essential (primary) hypertension; F32.9 Major depressive disorder, single episode, unspecified; F12.10 Cannabis abuse, uncomplicated; Z98.890 Other specified postprocedural states; Z87.891 Personal history of nicotine dependence; Z79.899 Other long term (current) drug therapy
CPT/HCPCS: 36415; 71046; 80053; 83735; 84100; 85007; 85025; 96361; 96374; 96375; 99284; C9113; J2270; J2405; J7030